=== PATIENT | male | born 1975 | race Caucasian/White ===

== ENCOUNTER → 2018-09-20 14:56 | Outpatient (CLI) | payer OTHER, MEDICAID, SELFPAY ==
[2018-09-20 18:17] LABS: Glucose Tol Interpretation INTERPRETATION
[2018-09-20 18:42] LABS: Glucose Fasting 74 mg/dL (70-100)
[2018-09-20 18:42] LABS: Glucose 1 Hour 142 mg/dL (70-170)
[2018-09-20 18:42] LABS: Glucose 2 Hour 91 mg/dL (70-140)
[2018-09-20 18:49] LABS: Glucose 3 Hour 72 mg/dL (70-115)
== END ==
PROVIDERS: PCP Physician Assistant; Visit Provider Physician Assistant
DX: E16.2 Hypoglycemia, unspecified (principal); R55 Syncope and collapse; Z83.3 Family history of diabetes mellitus
CPT/HCPCS: 36415; 82951; 82952

== ENCOUNTER → 2019-01-04 17:00 | Outpatient (CLI) | payer OTHER, MEDICAID, SELFPAY ==
[2019-01-04 17:38] LABS: Add Manual Diff / Slide Review NO; Basophils Absolute Auto 0 /uL (0-100); Basophils Percent Auto 0.8 % (0-2); Eosinophils Absolute Auto 200 /uL (0-450); Eosinophils Percent Auto 2.9 % (2-4); Hematocrit 48.7 % (41-53); Hemoglobin 16.2 g/dL (13.5-17.5); Lymphocytes Absolute Auto 1800 /uL (1100-4500); Lymphocytes Percent Auto 30.6 % (25-40); Mean Corpuscular HGB Conc 33.4 % (30-36); Mean Corpuscular Hemoglobin 29.8 PG (26-34); Mean Corpuscular Volume 89.3 fL (80-100); Monocytes Absolute Auto 600 /uL (0-900); Monocytes Percent Auto 9.5 % (3-14); Neutrophils Absolute Auto 3400 /uL (1500-7000); Neutrophils Percent Auto 56.2 % (50-75); Platelet Count 256 X10^3/uL (150-400); Red Blood Cell Count 5.46 X10^6/uL (4.5-5.9); Red Cell Distribution Width 13.1 % (11.6-14.8)
[2019-01-04 18:19] LABS: Free T4, Direct Thyroxine 1.03 ng/dL (0.78-2.19); Vitamin D 25 Hydroxy (D3) 24.3 ng/mL (30.0-100.0)
[2019-01-04 18:33] LABS: Thyroid Stimulating Hormone 3.18 uIU/mL (0.47-4.68)
[2019-01-06 15:12] LABS: Triiodothyronine T3 Total 104 ng/dL (76-181)
== END ==
PROVIDERS: PCP Physician Assistant; Visit Provider Internal Medicine
DX: R53.83 Other fatigue (principal); R63.5 Abnormal weight gain
CPT/HCPCS: 36415; 82306; 84439; 84443; 84480; 85025

== ENCOUNTER 2019-01-26 14:46 | Emergency (ER) | payer OTHER, MEDICAID, SELFPAY ==
[2019-01-26 14:57] VITALS: BP 185/105; PULSE 100; RESP 18; TEMP 37.2; O2SAT 99; BMI 34.7
--- NOTE | 2019-01-26 15:30 | DI.CT.S_ITS ---
PROCEDURE: CT HEAD/BRAIN WO CON INDICATIONS: htn, headache w/ c/o confusion at times. in ED wr TECHNIQUE: Noncontrast 4.5 mm thick angled axial sections acquired from the foramen magnum to the vertex, with coronal and sagittal reformats. For radiation dose reduction, the following was used: automated exposure control, adjustment of mA and/or kV according to patient size. COMPARISON: [facility], CT, HEAD WITHOUT CONTRAST, 10/26/2016, 1:03. FINDINGS: Image quality: Excellent. CSF spaces: Basal cisterns are patent. No extra-axial fluid collections. Ventricles are normal in size and shape. Brain: No midline shift. No intracranial masses or hemorrhage. Hammonds-white matter interface is normal. Skull and face: Calvarium and visualized facial bones are intact, without suspicious lesions. Sinuses: Visualized sinuses and mastoids are clear. IMPRESSION: No acute intracranial disease process. Dictated by: Lakshmi Rhodes MD, PhD on 01/26/2019 at 15:55 Approved by: Lakshmi Rhodes MD, PhD on 01/26/2019 at 15:57
--- NOTE | 2019-01-26 16:20 | DI.RAD.S_ITS ---
PROCEDURE: XR CHEST 1V INDICATIONS: chest pain TECHNIQUE: One view of the chest was acquired. COMPARISON: None. FINDINGS: Surgical changes and devices: None. Lungs and pleura: Lungs are clear. No pleural effusions or pneumothorax. Mediastinum: Mediastinal contours appear normal. Heart size is normal. Bones and chest wall: No suspicious bony lesions. Overlying soft tissues appear unremarkable. IMPRESSION: 1. No acute cardiopulmonary disease. Dictated by: Uday Bean M.D. on 01/26/2019 at 16:46 Approved by: Uday Bean M.D. on 01/26/2019 at 16:48
--- NOTE | 2019-01-26 16:47 | PC.NURSE ---
Patient reports headache, started with some stiffness in neck and shoulder after helping girlfriend move. Ongoing headache and some nausea. Taken off blood pressure medication secondary to weight loss.
[2019-01-26 16:49] LABS: Add Manual Diff / Slide Review NO; Basophils Absolute Auto 0 /uL (0-100); Basophils Percent Auto 0.5 % (0-2); Eosinophils Absolute Auto 300 /uL (0-450); Eosinophils Percent Auto 2.8 % (2-4); Hematocrit 46.6 % (41-53); Lymphocytes Absolute Auto 1900 /uL (1100-4500); Mean Corpuscular HGB Conc 34.3 % (30-36); Mean Corpuscular Hemoglobin 30.2 PG (26-34); Mean Corpuscular Volume 87.9 fL (80-100); Monocytes Absolute Auto 600 /uL (0-900); Monocytes Percent Auto 7.1 % (3-14); Neutrophils Absolute Auto 6200 /uL (1500-7000); Neutrophils Percent Auto 68.6 % (50-75); Platelet Count 239 X10^3/uL (150-400); Red Cell Distribution Width 12.9 % (11.6-14.8); White Blood Cell Count 9.1 X10^3/uL (4.5-11.0)
[2019-01-26 16:56] LABS: INR 0.9 (0.9-1.3); Prothrombin Time 10.8 SECONDS (10.1-12.7)
[2019-01-26 16:59] LABS: PTT Partial Thromboplastin Tim 28 SECONDS (26.4-36.2)
[2019-01-26] MEDS: diphenhydrAMINE 50 MG/ML VIAL 25 MG IV (17:01)
--- NOTE | 2019-01-26 17:01 | ED_ITS ---
HPI - Headache <BRIDGETTE Mullen - Last Filed: 01/26/19 19:54> General Chief Complaint: Headache Stated Complaint: disoriented,dizziness,migraine x5 days Time Seen by Provider: 01/26/19 16:26 Source: patient Mode of arrival: ambulatory Limitations: no limitations History of Present Illness HPI Narrative: The patient is a 43-year-old male with history of hypertension, obesity and sleep apnea who presents with a chief complaint of a headache. He states his headache is been going on for 5 days. Started post coital. He has been taking Tylenol and Motrin for it, but nothing else. He complains of associated nausea, light sensitivity. He does state that his blood pressure has been 180/120 at home. He states that all of his blood pressure medications have been recently discontinued due to his 60 lb weight loss. He denies any chest pain or chest pressure. Denies any cough or congestion. He complains of being disoriented and dizziness. He also complains of some stiffness in his right shoulder after helping his girlfriend move. Related Data Home Medications Medication Instructions Recorded Confirmed multivitamin tablet 1 tab PO DAILY 01/10/18 01/26/19 ResMed AirSense 10 Auto CPAP #1 ea 10/11/18 01/26/19 lovastatin 40 mg tablet 40 mg PO BEDTIME #0 tab 10/23/18 01/26/19 Fish Oil 1 cap PO DAILY 01/26/19 01/26/19 Vitamin D3 1 cap PO DAILY 01/26/19 01/26/19 magnesium 1 tab PO DAILY 01/26/19 01/26/19 Previous Rx's Medication Instructions Recorded lisinopril 5 mg PO DAILY #14 tab 01/26/19 Allergies Allergy/AdvReac Type Severity Reaction Status Date / Time Iodinated Contrast- Oral and AdvReac Severe Swollen Verified 10/23/18 11:40 IV Dye Tounge, Hives iodine [IODINE] AdvReac Severe SWOLLEN Verified 10/23/18 11:40 THROAT, BURNING EYES AND HIVES ALL OVER BODY SSRIs AdvReac Nausea, Uncoded 10/23/18 11:40 Fatigue, Sweating Review of Systems <VARGAS Mullen - Last Filed: 01/26/19 19:54> Review of Systems GENERAL: Denies chills, fatigue, malaise, fever, sweats. HEENT: Denies sinus pain, ear pain, sore throat, difficulty swallowing, dizziness. RESPIRATORY: See HPI CARDIOVASCULAR: Denies chest pain, palpitations, orthopnea, edema, GASTROINTESTINAL: Denies nausea, vomiting, abdominal pain, diarrhea, constipation, melena. : Denies dysuria, frequency, incontinence, hematuria, urinary retention. MUSCULOSKELETAL: denies weakness, joint pain, or bony pain SKIN: Denies rash, skin lesions, or other NEUROLOGIC: See HPI PSYCHIATRIC: No concerning psychosocial issues. 12 point review of systems is negative except for those stated above PFSH <BRIDGETTE Mullen - Last Filed: 01/26/19 19:54> Medical History Obstructive sleep apnea of adult (Chronic) Insomnia, unspecified (Chronic) Obesity (Chronic) Essential (primary) hypertension (Chronic ~2012) Anxiety (Inactive ~2006) Chronic back pain (Inactive ~2009) Depression (Inactive ~2006) Eczema (Inactive ~2009) Foot pain (Inactive ~2016) Gout (Inactive ~2015) Hemorrhoids (Inactive ~2013) Scoliosis (Inactive) Sleep apnea (Inactive ~2011) Surgical History Hx of removal of cyst (Inactive) Family History Father Heart disease Diabetes mellitus Hypertension Hyperlipidemia Mother Fibromyalgia Brother Diabetes mellitus Grandmother Heart attack Social History marital status: details: [place] household members: friend(s) lives independently: Yes caregiver/support person: No housing: house pets and animals: Yes education level: college occupational status: employed seatbelt use: always water heater temp set < 120 deg: Yes working smoke detector in home: Yes fire extinguisher in home: Yes carbon monox detector in home: Yes firearms in home: No Smoking Status: Never smoker second hand exposure: No alcohol intake: current (a glass of rum and coke or beer once or twice a year) substance use type: does not use during the past year weight has: increased > 10 lbs well-balanced diet: daily or most days daily servings fruits/ve-1 caffeine: Yes eating out: rarely or never Type(s) of exercise: walking, yoga and additional (strethching, light weights) frequency: 3-4 times per week duration: 45-60 minutes/day Family History Father Heart disease Diabetes mellitus Hypertension Hyperlipidemia Mother Fibromyalgia Brother Diabetes mellitus Grandmother Heart attack Social History marital status: details: has [place] GF [place] household members: friend(s) lives independently: Yes caregiver/support person: No housing: house pets and animals: Yes education level: college occupational status: employed seatbelt use: always water heater temp set < 120 deg: Yes working smoke detector in home: Yes fire extinguisher in home: Yes carbon monox detector in home: Yes firearms in home: No Smoking Status: Never smoker second hand exposure: No alcohol intake: current (a glass of rum and coke or beer once or twice a year) substance use type: does not use during the past year weight has: increased > 10 lbs well-balanced diet: daily or most days daily servings fruits/ve-1 caffeine: Yes eating out: rarely or never Type(s) of exercise: walking, yoga and additional (strethching, light weights) frequency: 3-4 times per week duration: 45-60 minutes/day Exam <BRIDGETTE Mullen - Last Filed: 01/26/19 19:54> Narrative Exam Narrative: GENERAL: This is a well-nourished, well-developed patient, no acute distress HEAD: Atraumatic. Normocephalic. No temporal or scalp tenderness. EYES: Pupils equal round and reactive. Extraocular motions intact. No scleral icterus. No injection or drainage. No nystagmus noted. ENT: Nose without bleeding, purulent drainage or septal hematoma. Throat without erythema, tonsillar hypertrophy or exudate. Uvula midline. Airway patent. NECK: Trachea midline. No JVD or lymphadenopathy. Supple, nontender, no meningeal signs. CARDIOVASCULAR: Regular rate and rhythm without murmurs, gallops, or rubs. RESPIRATORY: Clear to auscultation. Breath sounds equal bilaterally. No wheezes, rales, or rhonchi. No cough. No increased respiratory effort. No accessory muscle use. GASTROINTESTINAL: Abdomen soft, non-tender, nondistended. No hepato- splenomegaly, or palpable masses. No guarding. EXTREMITIES: No clubbing, cyanosis, or edema. No joint tenderness, effusion, or edema noted. BACK: Nontender without deformity or crepitance. No flank tenderness. NEURO: AOx3. Strength is equal upper and lower extremities bilaterally. No obvious cranial nerve deficit. Patient is ambulating with steady gait. Follows commands. Negative [id number] test. SKIN: No rash or erythema. Initial Vital Signs Initial Vital Signs: Vital Signs Temperature 98.9 F 01/26/19 14:57 Pulse Rate 100 H 01/26/19 14:57 Respiratory Rate 18 01/26/19 14:57 Blood Pressure 185/105 H 01/26/19 14:57 Pulse Oximetry 99 01/26/19 14:57 <Yolanda Lisa DO - Last Filed: 01/29/19 07:19> Initial Vital Signs Initial Vital Signs: Vital Signs Temperature 98.9 F 01/26/19 14:57 Pulse Rate 100 H 01/26/19 14:57 Respiratory Rate 18 01/26/19 14:57 Blood Pressure 185/105 H 01/26/19 14:57 Pulse Oximetry 99 01/26/19 14:57 Course <NELLIE Mullen-BC - Last Filed: 01/26/19 19:54> Orders Ordered: Discontinued Medications Cyclobenzaprine HCl (Flexeril) 10 mg PO NOW ONE Stop: 01/26/19 17:46 Last Admin: 01/26/19 18:18 Dose: 10 mg Diphenhydramine HCl (Benadryl) 25 mg IV NOW ONE Stop: 01/26/19 16:36 Last Admin: 01/26/19 17:01 Dose: 25 mg Ketorolac Tromethamine (Toradol) 30 mg IV NOW ONE Stop: 01/26/19 16:36 Last Admin: 01/26/19 17:02 Dose: 30 mg Lisinopril (Zestril) 5 mg PO NOW ONE Stop: 01/26/19 17:46 Last Admin: 01/26/19 18:18 Dose: 5 mg Metoclopramide HCl (Reglan) 10 mg IV NOW ONE Stop: 01/26/19 16:36 Last Admin: 01/26/19 17:02 Dose: 10 mg Vital Signs - 8 hr 01/26/19 14:57 01/26/19 17:45 01/26/19 18:00 Temperature 98.9 F Pulse Rate 100 H 71 85 Respiratory Rate 18 19 Blood Pressure 185/105 H Blood Pressure [Right Arm] 181/98 H 141/80 H Pulse Oximetry 99 98 01/26/19 18:18 01/26/19 18:34 01/26/19 18:58 Temperature Pulse Rate 63 Respiratory Rate Blood Pressure 178/108 H Blood Pressure [Right Arm] 175/111 H 171/99 H Pulse Oximetry <Yolanda Lisa, - Last Filed: 01/29/19 07:19> Orders Ordered: Discontinued Medications Cyclobenzaprine HCl (Flexeril) 10 mg PO NOW ONE Stop: 01/26/19 17:46 Last Admin: 01/26/19 18:18 Dose: 10 mg Diphenhydramine HCl (Benadryl) 25 mg IV NOW ONE Stop: 01/26/19 16:36 Last Admin: 01/26/19 17:01 Dose: 25 mg Ketorolac Tromethamine (Toradol) 30 mg IV NOW ONE Stop: 01/26/19 16:36 Last Admin: 01/26/19 17:02 Dose: 30 mg Lisinopril (Zestril) 5 mg PO NOW ONE Stop: 01/26/19 17:46 Last Admin: 01/26/19 18:18 Dose: 5 mg Metoclopramide HCl (Reglan) 10 mg IV NOW ONE Stop: 01/26/19 16:36 Last Admin: 01/26/19 17:02 Dose: 10 mg Vital Signs - 8 hr 01/26/19 14:57 01/26/19 17:45 01/26/19 18:00 Temperature 98.9 F Pulse Rate 100 H 71 85 Respiratory Rate 18 19 Blood Pressure 185/105 H Blood Pressure [Right Arm] 181/98 H 141/80 H Pulse Oximetry 99 98 01/26/19 18:18 01/26/19 18:34 01/26/19 18:58 Temperature Pulse Rate 63 Respiratory Rate Blood Pressure 178/108 H Blood Pressure [Right Arm] 175/111 H 171/99 H Pulse Oximetry MDM - Headache <Yolandajoaquim AmosNELLIE perez- - Last Filed: 01/26/19 19:54> Lab Data Result diagrams: 01/26/19 16:40 01/26/19 16:40 Lab Results 01/26/19 01/26/19 01/26/19 Range/Units 16:40 16:40 16:40 WBC 9.1 (4.5-11.0) X10^3/uL RBC 5.30 (4.5-5.9) X10^6/uL Hgb 16.0 (13.5-17.5) g/dL Hct 46.6 (41-53) % MCV 87.9 (80-100) fL MCH 30.2 (26-34) PG MCHC 34.3 (30-36) % RDW 12.9 (11.6-14.8) % Plt Count 239 (150-400) X10^3/uL Neut % (Auto) 68.6 (50-75) % Lymph % (Auto) 21.0 L (25-40) % [place] % (Auto) 7.1 (3-14) % Eos % (Auto) 2.8 (2-4) % Baso % (Auto) 0.5 (0-2) % Neut # (Auto) 6200 (7127-5860) /uL Lymph # (Auto) 1900 (9491-6028) /uL [place] # (Auto) 600 (0-900) /uL Eos # (Auto) 300 (0-450) /uL Baso # (Auto) 0 (0-100) /uL PT 10.8 (10.1-12.7) SECONDS INR 0.9 (0.9-1.3) APTT 28 (26.4-36.2) SECONDS Sodium 139 (137-145) mmol/L Potassium 3.8 (3.4-5.1) mmol/L Chloride 102 (98-107) mmol/L Carbon Dioxide 30 (22-32) mmol/L BUN 23 H (9-20) mg/dL Creatinine 1.00 (0.66-1.25) mg/dL Estimated GFR > 60.0 (>60) mL/min BUN/Creatinine Ratio 23.0 H (6-22) Glucose 95 (70-100) mg/dL Calcium 9.4 (8.4-10.2) mg/dL Total Bilirubin 0.6 (0.2-1.3) mg/dL AST 34 (17-59) IU/L ALT 25 (21-72) IU/L Alkaline Phosphatase 68 (38-126) U/L Total Creatine Kinase 453 H (55-170) U/L CK-MB (CK-2) 0.83 (<2.37) ng/mL CK-MB (CK-2) Rel Index 0.2 L (1.5-5.0) % Troponin I < 0.012 (0.01-0.034) ng/mL Total Protein 7.7 (6.3-8.2) g/dL Albumin 4.4 (3.5-5.0) g/dL Globulin 3.3 (1.7-4.1) g/dL Albumin/Globulin Ratio 1.3 (1.0-2.8) Lipase 81 (23-300) U/L Imaging Data CT scan - head: Radiologist's impression: WillianTimmy Becca Knutson M 1975 [place] [address] CT Scan Report Signed Patient: Timmy Dorsey JMR#: [id number] : 1975Acct:[id number] Age/Sex: 43 / MDate of Service: 01/26/19 Loc: ED Accession Number: [id number] Procedure: CT head/brain wo con Ordering Provider: Yolanda Lisa D.O. PROCEDURE: CT HEAD/BRAIN WO CON INDICATIONS: htn, headache w/ c/o confusion at times. in ED wr TECHNIQUE: Noncontrast 4.5 mm thick angled axial sections acquired from the foramen magnum to the vertex, with coronal and sagittal reformats. For radiation dose reduction, the following was used: automated exposure control, adjustment of mA and/or kV according to patient size. COMPARISON: [facility], CT, HEAD WITHOUT CONTRAST, 10/26/2016, 1:03. FINDINGS: Image quality: Excellent. CSF spaces: Basal cisterns are patent. No extra-axial fluid collections. Ve ntricles are normal in size and shape. Brain: No midline shift. No intracranial masses or hemorrhage. Hammonds-white matter interface is normal. Skull and face: Calvarium and visualized facial bones are intact, without suspicious lesions. Sinuses: Visualized sinuses and mastoids are clear. IMPRESSION: No acute intracranial disease process. Dictated by: Lakshmi Rhodes MD, PhD on 01/26/2019 at 15:55 Approved by: Lakshmi Rhodes MD, PhD on 01/26/2019 at 15:57 Chest x-ray: Radiologist's impression: [facility] DATE TYPE STATUS AUTHOR Kassandra 01/26/19 16:20 Uday Bean 01/26/19 15:30 CarmeloLakshmi Timmy Dorsey 43, M0 1975 DEP ER, ED.LOC - Main ED 175.26cm 106.594kg BMI: 34.7kg/m? Headache Search Chart NF - Not included in interaction checking Swollen Tounge, Hives SWOLLEN THROAT, BURNING EYES AND HIVES ALL OVER BODY Nausea, Fatigue, Sweating ONSET Today 18:58 Timmy Dorsey 43 M 1975 [place] [address] XRay Report Signed Patient: Timmy Dorsey JMR#: [id number] : 1975Acct:[id number] Age/Sex: 43 / MDate of Service: 01/26/19 Loc: ED Accession Number: [id number] Procedure: XR chest 1V Ordering Provider: Yolanda Singh GROUP CONTRACT ANALYST- PROCEDURE: XR CHEST 1V INDICATIONS: chest pain TECHNIQUE: One view of the chest was acquired. COMPARISON: None. FINDINGS: Surgical changes and devices: None. Lungs and pleura: Lungs are clear. No pleural effusions or pneumothorax. Mediastinum: Mediastinal contours appear normal. Heart size is normal. Bones and chest wall: No suspicious bony lesions. Overlying soft tissues appear unremarkable. IMPRESSION: 1. No acute cardiopulmonary disease. Dictated by: Uday Bean M.D. on 01/26/2019 at 16:46 Approved by: Uday Bean M.D. on 01/26/2019 at 16:48 ECG Data Attestation: I personally reviewed and interpreted this ECG as follows: Interpretation: Sinus rhythm. Ventricular rate 74. No ectopy noted. GA interval 152. Viewed by Dr Lisa 17:30 [facility] Narrative Medical decision making narrative: The patient is a 43-year-old male who presents hypertensive and with a migraine. Thus given his complaints of neurological symptoms, a head CT was obtained. This showed no acute etiology. He has a negative troponin. We treated his migraine with a cocktail, which she felt much improved after. His blood pressure is decreased from over 200 systolic to 170. I did give him lisinopril. I did discuss that a lumbar puncture is needed to fully rule out a subarachnoid. However he declines this at this time, given that he is improved. He actually requested to be discharged immediately after oral medications. Given his persistently high blood pressure, did give a prescription for 2 weeks of lisinopril. Discussed at length return precautions of chest pain, shortness of breath, concern of heart attack or stroke or other acute concerns. Encouraged patient to follow up with primary care provider in the next few days. Patient has no questions or concerns upon discharge. <Yolanda Lisa, DO - Last Filed: 01/29/19 07:19> Lab Data Lab Results 01/26/19 01/26/19 01/26/19 Range/Units 16:40 16:40 16:40 WBC 9.1 (4.5-11.0) X10^3/uL RBC 5.30 (4.5-5.9) X10^6/uL Hgb 16.0 (13.5-17.5) g/dL Hct 46.6 (41-53) % MCV 87.9 (80-100) fL MCH 30.2 (26-34) PG MCHC 34.3 (30-36) % RDW 12.9 (11.6-14.8) % Plt Count 239 (150-400) X10^3/uL Neut % (Auto) 68.6 (50-75) % Lymph % (Auto) 21.0 L (25-40) % [place] % (Auto) 7.1 (3-14) % Eos % (Auto) 2.8 (2-4) % Baso % (Auto) 0.5 (0-2) % Neut # (Auto) 6200 (7560-6265) /uL Lymph # (Auto) 1900 (5047-5773) /uL [place] # (Auto) 600 (0-900) /uL Eos # (Auto) 300 (0-450) /uL Baso # (Auto) 0 (0-100) /uL PT 10.8 (10.1-12.7) SECONDS INR 0.9 (0.9-1.3) APTT 28 (26.4-36.2) SECONDS Sodium 139 (137-145) mmol/L Potassium 3.8 (3.4-5.1) mmol/L Chloride 102 (98-107) mmol/L Carbon Dioxide 30 (22-32) mmol/L BUN 23 H (9-20) mg/dL Creatinine 1.00 (0.66-1.25) mg/dL Estimated GFR > 60.0 (>60) mL/min BUN/Creatinine Ratio 23.0 H (6-22) Glucose 95 (70-100) mg/dL Calcium 9.4 (8.4-10.2) mg/dL Total Bilirubin 0.6 (0.2-1.3) mg/dL AST 34 (17-59) IU/L ALT 25 (21-72) IU/L Alkaline Phosphatase 68 (38-126) U/L Total Creatine Kinase 453 H (55-170) U/L CK-MB (CK-2) 0.83 (<2.37) ng/mL CK-MB (CK-2) Rel Index 0.2 L (1.5-5.0) % Troponin I < 0.012 (0.01-0.034) ng/mL Total Protein 7.7 (6.3-8.2) g/dL Albumin 4.4 (3.5-5.0) g/dL Globulin 3.3 (1.7-4.1) g/dL Albumin/Globulin Ratio 1.3 (1.0-2.8) Lipase 81 (23-300) U/L Discharge Plan Departure Patient Disposition: Home Clinical Impression: Migraine Qualifiers: Migraine type: unspecified Status migrainosus presence: without status migrainosus Intractability: not intractable Qualified Code(s): G43.909 - Migraine, unspecified, not intractable, without status migrainosus Hypertension Qualifiers: Hypertension type: unspecified Qualified Code(s): I10 - Essential (primary) hypertension Discharge Date/Time: 01/26/19 19:48 Interventions: ED Discharge Assessment Last Done: 01/26/19 19:47 Instructions: The DASH Diet, High Blood Pressure (Hypertension) (Alternative Therapy), Essential Hypertension, DI for Migraine, DI for Headache Activity Restrictions/Additional Instructions: Today we treated your migraine and I gave you some blood pressure medication. Your CT scan came back with no acute abnormalities. Please come back to the emergency department for any acute concerns such as chest pain, shortness of breath concern of heart attack or stroke. Please follow up with your primary care provider as soon as possible. Prescriptions: New lisinopril 5 mg tablet 5 mg PO DAILY Qty: 14 RF: 0 No Action multivitamin tablet 1 tab PO DAILY RF: 0 lovastatin 40 mg tablet 40 mg PO BEDTIME Qty: 0 RF: 0 Fish Oil 1 cap PO DAILY RF: 0 Vitamin D3 1 cap PO DAILY RF: 0 magnesium 1 tab PO DAILY RF: 0 ResMed AirSense 10 Auto CPAP Qty: 1 RF: 0 Referrals: Inez Alexandre PA-C [Primary Care Provider] - <Yolanda Lisa DO - Last Filed: 01/29/19 07:19> Cosign ED Attending Cosignature Attestation: I was immediately available in the department for consultation. This documentation has been reviewed and I agree with assessment and plan. Supervised by Yolanda Lisa DO
[2019-01-26 17:02] LABS: Alanine Aminotransferase 25 IU/L (21-72); Albumin 4.4 g/dL (3.5-5.0); Albumin Globulin Ratio 1.3 (1.0-2.8); Alkaline Phosphatase 68 U/L (38-126); Aspartate Aminotransferase 34 IU/L (17-59); Bilirubin Total 0.6 mg/dL (0.2-1.3); Blood Urea Nitrogen 23 mg/dL (9-20); Calcium 9.4 mg/dL (8.4-10.2); Carbon Dioxide 30 mmol/L (22-32); Chloride 102 mmol/L (98-107); Creatine Kinase 453 U/L (55-170); Estimated Glomerular Filt Rate > 60.0 mL/min (>60); Globulin 3.3 g/dL (1.7-4.1); Glucose 95 mg/dL (70-100); HEMOLYSIS 47 (0-50); Lipase 81 U/L (23-300); Potassium 3.8 mmol/L (3.4-5.1); Sodium 139 mmol/L (137-145); Total Protein 7.7 g/dL (6.3-8.2)
[2019-01-26] MEDS: METOCLOPRAMIDE 10 MG/2 ML INJ IV (17:02)
[2019-01-26] MEDS: KETOROLAC 60 MG/2 ML VIAL 30 MG IV (17:02)
[2019-01-26 17:14] LABS: Troponin I < 0.012 ng/mL (0.01-0.034)
[2019-01-26 17:17] LABS: CKMB % Relative Index 0.2 % (1.5-5.0); Creatine Kinase MB 0.83 ng/mL (<2.37)
[2019-01-26 17:45] VITALS: BP 181/98; PULSE 71; RESP 19; O2SAT 98
[2019-01-26 18:00] VITALS: BP 141/80; PULSE 85
[2019-01-26 18:18] VITALS: BP 178/108; PULSE 63
[2019-01-26] MEDS: LISINOPRIL 5 MG TABLET PO (18:18)
[2019-01-26] MEDS: CYCLOBENZAPRINE 10 MG TABLET PO (18:18)
[2019-01-26 18:34] VITALS: BP 175/111
[2019-01-26 18:58] VITALS: BP 171/99
== END 2019-01-26 19:48 | disposition home or self-care (01) ==
PROVIDERS: Emergency Provider Nurse Practitioner Family; PCP Physician Assistant
DX: G43.909 Migraine, unspecified, not intractable, without status migrainosus (principal); I10 Essential (primary) hypertension; R42 Dizziness and giddiness
CPT/HCPCS: 36591; 70450; 71045; 80053; 82550; 82553; 83690; 84484; 85025; 85610; 85730; 93005; 93010; 96374; 96375; 99283; 99285; J1200; J1885; J2765

== ENCOUNTER → 2019-05-01 12:26 | Outpatient (CLI) | payer OTHER, MEDICAID, SELFPAY ==
[2019-05-01 13:53] LABS: Cholesterol 255 mg/dL (140-199); HDL Cholesterol 43 mg/dL (40-60); LDL Cholesterol Calculated 173 mg/dL (<100); Triglycerides 196 mg/dL (35-150)
[2019-05-01 15:00] LABS: Creatinine Urine Random 223.7 mg/dL
[2019-05-01 15:05] LABS: Microalbumin Urine Random 0.9 mg/dL (0-1.6)
== END ==
PROVIDERS: PCP Physician Assistant; Visit Provider Physician Assistant
DX: I10 Essential (primary) hypertension (principal); E78.5 Hyperlipidemia, unspecified
CPT/HCPCS: 36415; 80061; 82043; 82570

== ENCOUNTER → 2019-06-13 11:39 | Outpatient (CLI) | payer OTHER, MEDICAID, SELFPAY ==
[2019-06-13 13:39] LABS: Thyroid Stimulating Hormone 1.71 uIU/mL (0.47-4.68)
[2019-06-13 13:40] LABS: Cortisol Random 11.7 ug/dL
[2019-06-17 16:55] LABS: Catecholamines, Total 490 pg/mL
== END ==
PROVIDERS: PCP Physician Assistant; Visit Provider Internal Medicine Cardiovascular Disease
DX: I10 Essential (primary) hypertension (principal)
CPT/HCPCS: 36415; 82384; 82533; 84443

== ENCOUNTER 2019-07-24 13:35 | Emergency (ER) | payer OTHER, MEDICAID, SELFPAY ==
[2019-07-24 13:48] VITALS: BP 197/117; PULSE 85; RESP 20; TEMP 37.1; O2SAT 96
[2019-07-24 14:00] VITALS: BP 170/101; RESP 21; O2SAT 91
--- NOTE | 2019-07-24 14:00 | ED_ITS ---
HPI - General Adult General Chief complaint: Hypertension Stated complaint: Htn 130/205 - sent by doc Time Seen by Provider: 07/24/19 14:00 Source: patient Mode of arrival: Ambulatory Limitations: no limitations History of Present Illness HPI narrative: Patient is a 44-year-old male with history of hypertension pres enting from the dentist with elevated blood pressure. He states that he has white coat syndrome as well as hypertension. He sees cardiology to help manage his blood pressure. Took ibuprofen prior to arrival for his toothache. He denies any chest pain shortness of breath dizziness lightheadedness palpitations abdominal pain nausea or vomiting. His blood pressure has decreased to just within the 1st few minutes of being in the emergency department. Related Data Home Medications Medication Instructions Recorded Confirmed multivitamin 1 tab PO DAILY 01/10/18 04/18/19 ResMed AirSense 10 Auto CPAP #1 ea 10/11/18 04/18/19 lovastatin 40 mg tablet 40 mg PO BEDTIME #0 tab 10/23/18 07/24/19 magnesium 1 tab PO DAILY 01/26/19 04/18/19 Fish Oil/Vitamin D3 1 cap PO .QDAY 02/01/19 04/18/19 acetaminophen 500 mg tablet 1,000 mg PO Q6H PRN 02/01/19 04/18/19 diphenhydramine HCl 25 mg tablet 25 mg PO BEDTIME PRN 02/01/19 04/18/19 ibuprofen 200 mg tablet 800 mg PO Q6-8H PRN tab 02/01/19 04/18/19 Previous Rx's Medication Instructions Recorded valsartan 80 1 tab PO DAILY #30 tab 04/18/19 mg-hydrochlorothiazide 12.5 mg tablet Allergies Allergy/AdvReac Type Severity Reaction Status Date / Time Iodinated Contrast Media AdvReac Severe Swollen Verified 04/18/19 11:48 [Iodinated Contrast- Oral Tounge, and IV Dye] Hives iodine [IODINE] AdvReac Severe SWOLLEN Verified 04/18/19 11:48 THROAT, BURNING EYES AND HIVES ALL OVER BODY amlodipine AdvReac Intermediate Swelling Verified 04/18/19 12:16 in legs; weight gain lisinopril AdvReac Mild Itchy Verified 04/18/19 12:16 throat, itchy eyes SSRIs AdvReac Nausea, Uncoded 04/18/19 11:48 Fatigue, Sweating Review of Systems Review of Systems Narrative: GENERAL: Denies chills, fatigue, malaise, fever, sweats, travel HEENT: + dental pain Denies sinus pain, ear pain, sore throat, difficulty swallowing, neck pain RESPIRATORY: Denies dyspnea, cough, wheezing, hemoptysis, sputum. CARDIOVASCULAR: Denies chest pain, palpitations, orthopnea, edema GASTROINTESTINAL: Denies nausea, vomiting, abdominal pain, diarrhea, constip ation, melena. : Denies dysuria, frequency, incontinence, hematuria, urinary retention, flank pain. MUSCULOSKELETAL: Denies weakness, joint pain, or bony pain SKIN: No rash, no erythema, no pruritus NEUROLOGIC: Denies weakness, dizziness, headache, numbness, change in speech, confusion PSYCHIATRIC: No concerning psychosocial issues. 12 point review of systems is negative except for those stated above and HPI Patient History Medical History Anxiety (Inactive ~2006) Chronic back pain (Inactive ~2009) Depression (Inactive ~2006) Eczema (Inactive ~2009) Essential (primary) hypertension (Chronic ~2012) Foot pain (Inactive ~2016) Gout (Inactive ~2015) Hemorrhoids (Inactive ~2013) Insomnia, unspecified (Chronic) Obesity (Chronic) Obstructive sleep apnea of adult (Chronic) Scoliosis (Inactive) Sleep apnea (Inactive ~2011) Surgical History Hx of removal of cyst (Inactive) Family History Father Heart disease Diabetes mellitus Hypertension Hyperlipidemia Mother Fibromyalgia Brother Diabetes mellitus Grandmother Heart attack Social History marital status: details: has [place] GF [place] household members: friend(s) lives independently: Yes caregiver/support person: No housing: house pets and animals: Yes education level: college occupational status: employed seatbelt use: always water heater temp set < 120 deg: Yes working smoke detector in home: Yes fire extinguisher in home: Yes carbon monox detector in home: Yes firearms in home: No Smoking Status: Never smoker second hand exposure: No alcohol intake: current (a glass of rum and coke or beer once or twice a year) substance use type: does not use during the past year weight has: increased > 10 lbs well-balanced diet: daily or most days daily servings fruits/ve-1 caffeine: Yes eating out: rarely or never Type(s) of exercise: walking, yoga and additional (strethching, light weights) frequency: 3-4 times per week duration: 45-60 minutes/day alcohol intake frequency: a few times a month Substance Use Type: marijuana Exam Initial Vital Signs Initial Vital Signs: Vital Signs Temperature 98.7 F 07/24/19 13:48 Pulse Rate 85 07/24/19 13:48 Respiratory Rate 20 07/24/19 13:48 Blood Pressure 197/117 H 07/24/19 13:48 Pulse Oximetry 96 07/24/19 13:48 GENERAL: Well-appearing, well-nourished and in no acute distress. HEENT: Head atraumatic,EOMI, pupils reactive, face symmetric, moist mucous membranes CARDIOVASCULAR: Regular rate and rhythm without murmurs, rubs or gallops. RESPIRATORY: Breath sounds equal bilaterally, no wheezes rales or rhonchi. ABDOMEN: Soft, nontender. Normoactive bowel sounds all 4 quadrants. No guardi ng or rebound. EXTREMITIES: Normal range of motion, no clubbing or edema. Neurovascularly intact NEUROLOGICAL: Alert and oriented x4.Normal gait and speech. Cranial nerves II through XII grossly intact. SKIN: Warm, dry, no laceration, no petechiae, no rashes or lesions. Course Orders Ordered: ED Orders 07/24/19 14:10 Complete Blood Count AUTO DIFF Stat Comprehensive Metabolic Panel Stat Lipase Stat Troponin & CK Cardiac Panel Stat Vital Signs Vital signs: Vital Signs - 8 hr 07/24/19 13:48 07/24/19 14:00 07/24/19 14:30 Temperature 98.7 F Pulse Rate 85 77 Respiratory Rate 20 21 17 Blood Pressure 197/117 H Blood Pressure [Right Arm] 170/101 H 155/104 H Pulse Oximetry 96 91 94 07/24/19 14:57 Temperature Pulse Rate 75 Respiratory Rate Blood Pressure Blood Pressure [Right Arm] 155/104 H Pulse Oximetry 95 Medical Decision Making Lab Data Lab results reviewed: Yes I reviewed the patient's lab results. Result diagrams: 07/24/19 14:10 07/24/19 14:10 Labs: Lab Results 07/24/19 07/24/19 Range/Units 14:10 14:10 WBC 5.8 (4.5-11.0) X10^3/uL RBC 5.02 (4.5-5.9) X10^6/uL Hgb 15.0 (13.5-17.5) g/dL Hct 44.0 (41-53) % MCV 87.7 (80-100) fL MCH 30.0 (26-34) PG MCHC 34.2 (30-36) % RDW 13.5 (11.6-14.8) % Plt Count 239 (150-400) X10^3/uL Neut % (Auto) 63.5 (50-75) % Lymph % (Auto) 27.4 (25-40) % Meriwether % (Auto) 6.6 (3-14) % Eos % (Auto) 1.9 L (2-4) % Baso % (Auto) 0.6 (0-2) % Neut # (Auto) 3700 (4627-2654) /uL Lymph # (Auto) 1600 (5681-4266) /uL Meriwether # (Auto) 400 (0-900) /uL Eos # (Auto) 100 (0-450) /uL Baso # (Auto) 0 (0-100) /uL Sodium 137 (137-145) mmol/L Potassium 3.7 (3.4-5.1) mmol/L Chloride 101 (98-107) mmol/L Carbon Dioxide 30 (22-32) mmol/L BUN 17 (9-20) mg/dL Creatinine 1.30 H (0.66-1.25) mg/dL Estimated GFR > 60.0 (>60) mL/min BUN/Creatinine Ratio 13.1 (6-22) Glucose 100 (70-100) mg/dL Calcium 9.2 (8.4-10.2) mg/dL Total Bilirubin 0.6 (0.2-1.3) mg/dL AST 29 (17-59) IU/L ALT 27 (<50) IU/L Alkaline Phosphatase 59 (38-126) U/L Total Creatine Kinase 152 (55-170) U/L CK-MB (CK-2) 0.41 (<2.37) ng/mL CK-MB (CK-2) Rel Index 0.3 L (1.5-5.0) % Troponin I < 0.012 (0.01-0.034) ng/mL Total Protein 7.4 (6.3-8.2) g/dL Albumin 4.2 (3.5-5.0) g/dL Globulin 3.2 (1.7-4.1) g/dL Albumin/Globulin Ratio 1.3 (1.0-2.8) Lipase 55 (23-300) U/L ECG Data Attestation: I personally reviewed and interpreted this ECG as follows: Prior ECG tracings: not available for review Interpretation: Normal sinus rhythm rate 89 p.r. interval 180 QRS [address] elevations depressions or T-wave inversions no prior to compare MDM Narrative Medical decision making narrative: The patient is no sign of end-organ damage. He has difficult to control blood pressure he is seen by Cardiology and PCP. At this time no sign of end-organ damage she is asymptomatic. Patient can be followed up as outpatient. Discharge Plan Departure Patient Disposition: Home Clinical Impression: Essential hypertension Discharge Date/Time: 07/24/19 15:05 Instructions: DI for High Blood Pressure Activity Restrictions/Additional Instructions: *You have been diagnosed with hypertension *What to do: Your blood pressure is noted to be elevated it is recommended that you speak with your insurance loss adjuster or primary care provider in regards to your medication. At this time her blood pressure has come down while in the emergency department. Her blood work overall is reassuring. *Continue to take medications as directed *Follow up with your primary care provider in 2-3 days *Return to ER if you should have persistently elevated blood pressure, headache, vision changes weakness numbness tingling chest pain shortness of breath or any new, worsening or concerning symptoms Prescriptions: No Action multivitamin tablet 1 tab PO DAILY RF: 0 lovastatin 40 mg tablet 40 mg PO BEDTIME Qty: 0 RF: 0 Fish Oil/Vitamin D3 1 cap PO .QDAY RF: 0 ibuprofen 200 mg tablet 800 mg PO Q6-8H PRNRF: 0 acetaminophen [Tylenol Extra Strength] 500 mg tablet 1,000 mg PO Q6H PRNRF: 0 diphenhydramine HCl [Benadryl Allergy] 25 mg tablet 25 mg PO BEDTIME PRNRF: 0 valsartan-hydrochlorothiazide 80-12.5 mg tablet 1 tab PO DAILY Qty: 30 RF: 1 magnesium 1 tab PO DAILY RF: 0 (DME) ResMed AirSense 10 Auto CPAP Qty: 1 RF: 0 Referrals: Inez Alexandre PA-C [Primary Care Provider] -
[2019-07-24 14:22] LABS: Add Manual Diff / Slide Review NO; Basophils Absolute Auto 0 /uL (0-100); Basophils Percent Auto 0.6 % (0-2); Eosinophils Absolute Auto 100 /uL (0-450); Eosinophils Percent Auto 1.9 % (2-4); Lymphocytes Absolute Auto 1600 /uL (1100-4500); Lymphocytes Percent Auto 27.4 % (25-40); Mean Corpuscular HGB Conc 34.2 % (30-36); Mean Corpuscular Volume 87.7 fL (80-100); Monocytes Absolute Auto 400 /uL (0-900); Monocytes Percent Auto 6.6 % (3-14); Neutrophils Absolute Auto 3700 /uL (1500-7000); Neutrophils Percent Auto 63.5 % (50-75); Platelet Count 239 X10^3/uL (150-400); Red Blood Cell Count 5.02 X10^6/uL (4.5-5.9); Red Cell Distribution Width 13.5 % (11.6-14.8); White Blood Cell Count 5.8 X10^3/uL (4.5-11.0)
--- NOTE | 2019-07-24 14:28 | PC.NURSE ---
Pt denies any sx. Pt was at the dentist which he normally has anxiety about,they did a routine blood pressure check. It was high,told to go to the ED. 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 Pt denies pain at triage.
[2019-07-24 14:30] VITALS: BP 155/104; PULSE 77; RESP 17; O2SAT 94
[2019-07-24 14:33] LABS: Alanine Aminotransferase 27 IU/L (<50); Albumin 4.2 g/dL (3.5-5.0); Albumin Globulin Ratio 1.3 (1.0-2.8); Alkaline Phosphatase 59 U/L (38-126); Aspartate Aminotransferase 29 IU/L (17-59); BUN Creatinine Ratio 13.1 (6-22); Bilirubin Total 0.6 mg/dL (0.2-1.3); Blood Urea Nitrogen 17 mg/dL (9-20); Calcium 9.2 mg/dL (8.4-10.2); Carbon Dioxide 30 mmol/L (22-32); Chloride 101 mmol/L (98-107); Creatine Kinase 152 U/L (55-170); Estimated Glomerular Filt Rate > 60.0 mL/min (>60); Globulin 3.2 g/dL (1.7-4.1); Glucose 100 mg/dL (70-100); HEMOLYSIS < 15 (0-50); Lipase 55 U/L (23-300); Potassium 3.7 mmol/L (3.4-5.1); Sodium 137 mmol/L (137-145); Total Protein 7.4 g/dL (6.3-8.2)
[2019-07-24 14:44] LABS: Troponin I < 0.012 ng/mL (0.01-0.034)
[2019-07-24 14:48] LABS: CKMB % Relative Index 0.3 % (1.5-5.0); Creatine Kinase MB 0.41 ng/mL (<2.37)
[2019-07-24 14:57] VITALS: BP 155/104; PULSE 75; O2SAT 95
== END 2019-07-24 15:05 | disposition home or self-care (01) ==
PROVIDERS: Emergency Provider Emergency Medicine; PCP Physician Assistant
DX: I10 Essential (primary) hypertension (principal)
CPT/HCPCS: 36415; 80053; 82550; 82553; 83690; 84484; 85025; 93005; 99283; 99284

== ENCOUNTER 2019-11-02 23:36 | Emergency (ER) | payer OTHER, MEDICAID, SELFPAY ==
[2019-11-02 23:51] VITALS: BP 175/90; PULSE 76; RESP 20; TEMP 36.6; O2SAT 98
--- NOTE | 2019-11-03 00:08 | ED.DENTAL ---
HPI - Dental/Oral General Chief complaint: Dental/Oral Stated complaint: left side upper tooth pain Time Seen by Provider: 11/03/19 00:07 Source: patient Mode of arrival: Ambulatory Limitations: no limitations History of Present Illness HPI Narrative: This is a 44-year-old male who comes to the emergency department with complaint of left-sided upper tooth pain. Patient denies any fevers. He states that the pain started increasingly tonight. He tried some and thus all which was unhelpful, took some ibuprofen and elected to here. Patient states ibuprofen might be starting to help. No fevers. No swelling. He states that he had been told he had a cavity in that tooth in would probably need a root canal at some point. He has not appreciated any swelling or discharge or foul taste. He had was eating subway this evening but does not remember biting down or having any trauma that due to the tooth. Patient states a little nausea no vomiting. No swelling of the airway. Denies any other symptoms. Patient has a history of hypertension and dyslipidemia. Related Data Home Medications Medication Instructions Recorded Confirmed multivitamin 1 tab PO DAILY 01/10/18 09/12/19 ResMed AirSense 10 Auto CPAP #1 ea 10/11/18 09/12/19 lovastatin 40 mg tablet 40 mg PO BEDTIME #0 tab 10/23/18 09/12/19 magnesium 1 tab PO DAILY 01/26/19 09/12/19 Fish Oil/Vitamin D3 1 cap PO .QDAY 02/01/19 09/12/19 acetaminophen 500 mg tablet 1,000 mg PO Q6H PRN 02/01/19 09/12/19 diphenhydramine HCl 25 mg tablet 25 mg PO BEDTIME PRN 02/01/19 09/12/19 ibuprofen 200 mg tablet 800 mg PO Q6-8H PRN tab 02/01/19 09/12/19 spironolactone 25 mg tablet 25 mg PO DAILY 08/08/19 09/12/19 Previous Rx's Medication Instructions Recorded bupropion HCl 150 mg tablet,12 hr 150 mg PO QAM #30 each 09/12/19 sustained-release Allergies Allergy/AdvReac Type Severity Reaction Status Date / Time Iodinated Contrast Media AdvReac Severe Swollen Verified 09/12/19 11:39 [Iodinated Contrast- Oral Tounge, and IV Dye] Hives iodine [IODINE] AdvReac Severe SWOLLEN Verified 09/12/19 11:39 THROAT, BURNING EYES AND HIVES ALL OVER BODY amlodipine AdvReac Intermediate Swelling Verified 09/12/19 11:39 in legs; weight gain lisinopril AdvReac Mild Itchy Verified 09/12/19 11:39 throat, itchy eyes SSRIs AdvReac Nausea, Uncoded 09/12/19 11:39 Fatigue, Sweating Review of Systems Review of Systems ROS Unobtainable: All systems reviewed & are unremarkable except as noted in HPI and below Patient History Medical History Anxiety (Inactive ~2006) Chronic back pain (Inactive ~2009) Depression (Inactive ~2006) Eczema (Inactive ~2009) Essential (primary) hypertension (Chronic ~2012) Foot pain (Inactive ~2016) Gout (Inactive ~2015) Hemorrhoids (Inactive ~2013) Insomnia, unspecified (Chronic) Obesity (Chronic) Obstructive sleep apnea of adult (Chronic) Scoliosis (Inactive) Sleep apnea (Inactive ~2011) Surgical History Hx of removal of cyst (Inactive) Social History marital status: details: has [place] GF [place] household members: friend(s) lives independently: Yes caregiver/support person: No housing: house pets and animals: Yes education level: college occupational status: employed seatbelt use: always water heater temp set < 120 deg: Yes working smoke detector in home: Yes fire extinguisher in home: Yes carbon monox detector in home: Yes firearms in home: No Smoking Status: Never smoker second hand exposure: No alcohol intake: current (a glass of rum and coke or beer once or twice a year) substance use type: does not use during the past year weight has: increased > 10 lbs well-balanced diet: daily or most days daily servings fruits/ve-1 caffeine: Yes eating out: rarely or never Type(s) of exercise: walking, yoga and additional (strethching, light weights) frequency: 3-4 times per week duration: 45-60 minutes/day Smoking Status: Never smoker alcohol intake frequency: a few times a month Substance Use Type: marijuana Exam Narrative Exam Narrative: GEN: well nourished, well appearing male, alert and oriented x 3, patient appears to be in mild distress. HEENT: Atraumatic, pupils are equal round reactive to light, extraocular movements are intact, nares are clear, TMs are clear with no fluid, there is no conjunctival pallor. Throat is clear without any exudates, erythema, tonsillar enlargement or uvular deviation, patient appears to have a filling in that tooth it appears intact. Patient is tender in that area but there is no redness swelling or other signs of abscess. No facial swelling. HEART: Regular rate and rhythm without murmur, clicks, rubs. No carotid bruits, pulses are equal in upper and lower extremities LUNGS:Lungs clear to auscultation, no wheezes, rales, crackles, chest moves symmetrically ABD:bowel sounds normal, soft, non-tender, no guarding, rebound, rigidity, no masses noted, no hepatosplenomegaly MSCL: Non-tender, no muscle atrophy, muscles strength 5/5 upper and lower extremities, full range of motion, normal gait NEURO:CN 2-12 intact, sensation normal Initial Vital Signs Initial Vital Signs: Vital Signs Temperature 97.8 F 11/02/19 23:51 Pulse Rate 76 11/02/19 23:51 Respiratory Rate 20 11/02/19 23:51 Blood Pressure 175/90 H 11/02/19 23:51 Pulse Oximetry 98 11/02/19 23:51 Course Orders Ordered: Discontinued Medications Ketorolac Tromethamine (Toradol) 30 mg IM NOW ONE Stop: 11/03/19 00:21 Last Admin: 11/03/19 00:33 Dose: 30 mg Documented by: MATT Tramadol HCl (Ultram 50mg Prepack) 1 bottle MISC SEEINSTR ONE Stop: 11/03/19 00:22 Last Admin: 11/03/19 00:32 Dose: 1 bottle Documented by: MATT Vital Signs Vital signs: Vital Signs - 8 hr 11/02/19 23:51 11/03/19 00:56 Temperature 97.8 F Pulse Rate 76 80 Respiratory Rate 20 18 Blood Pressure 175/90 H 150/78 H Pulse Oximetry 98 98 MDM - Dental/Oral MDM Narrative Medical decision making narrative: Discussed with patient he is going to call in the morning to find a dentist for his tooth. I do not see any signs of infection plan to give IM dose of pain medication and a short prepack of pain medication and patient is to follow up with a dentist. Discharge Plan Departure Patient Disposition: Home Clinical Impression: Pain, dental Discharge Date/Time: 11/03/19 00:57 Instructions: DI for Dental Pain Activity Restrictions/Additional Instructions: Follow-up with the dentist in the next several days. Take pain medication as prescribed, you may take ibuprofen with this pain medication. Return to the ER for fevers greater 100.4 F, passing out, swelling of the airway. Purulent discharge, redness, skin changes or fluid accumulation in the mouth or cheek or other new or concerning symptoms. Prescriptions: No Action multivitamin tablet 1 tab PO DAILY RF: 0 lovastatin 40 mg tablet 40 mg PO BEDTIME Qty: 0 RF: 0 Fish Oil/Vitamin D3 1 cap PO .QDAY RF: 0 ibuprofen 200 mg tablet 800 mg PO Q6-8H PRNRF: 0 acetaminophen [Tylenol Extra Strength] 500 mg tablet 1,000 mg PO Q6H PRNRF: 0 diphenhydramine HCl [Benadryl Allergy] 25 mg tablet 25 mg PO BEDTIME PRNRF: 0 spironolactone 25 mg tablet 25 mg PO DAILY RF: 0 bupropion HCl 150 mg tablet sustained-release 12 hr 150 mg PO QAM Qty: 30 RF: 6 magnesium 1 tab PO DAILY RF: 0 (DME) ResMed AirSense 10 Auto CPAP Qty: 1 RF: 0 Referrals: Inez Alexandre PA-C [Primary Care Provider] -
[2019-11-03] MEDS: TRAMADOL 50 MG PREPACK 1 BOTTLE MISC (00:32)
[2019-11-03] MEDS: KETOROLAC 60 MG/2 ML VIAL 30 MG IM (00:33)
[2019-11-03 00:56] VITALS: BP 150/78; PULSE 80; RESP 18; O2SAT 98
== END 2019-11-03 00:57 | disposition home or self-care (01) ==
PROVIDERS: Emergency Provider Emergency Medicine; PCP Physician Assistant
DX: K08.89 Other specified disorders of teeth and supporting structures (principal)
CPT/HCPCS: 96372; 99283; J1885

== ENCOUNTER → 2019-11-06 16:55 | Outpatient (CLI) | payer OTHER, MEDICAID, SELFPAY ==
[2019-11-06 18:13] LABS: Alanine Aminotransferase 26 IU/L (<50); Albumin 4.3 g/dL (3.5-5.0); Albumin Globulin Ratio 1.3 (1.0-2.8); Alkaline Phosphatase 55 U/L (38-126); Aspartate Aminotransferase 26 IU/L (17-59); Bilirubin Total 0.3 mg/dL (0.2-1.3); Blood Urea Nitrogen 18 mg/dL (9-20); Calcium 9.2 mg/dL (8.4-10.2); Carbon Dioxide 28 mmol/L (22-32); Chloride 106 mmol/L (98-107); Estimated Glomerular Filt Rate > 60.0 mL/min (>60); Globulin 3.4 g/dL (1.7-4.1); Glucose 86 mg/dL (70-100); HEMOLYSIS 17 (0-50); Potassium 4.1 mmol/L (3.4-5.1); Sodium 143 mmol/L (137-145); Total Protein 7.7 g/dL (6.3-8.2)
== END ==
PROVIDERS: PCP Internal Medicine; Referring Provider Internal Medicine; Visit Provider Internal Medicine
DX: I10 Essential (primary) hypertension (principal)
CPT/HCPCS: 36415; 80053

== ENCOUNTER 2020-01-21 04:00 | Observation (INO) | payer OTHER, MEDICAID, SELFPAY ==
[2020-01-21] VITALS (29 sets, daily range): BP systolic 128–241; BP diastolic 63–121; PULSE 74–122; RESP 11–29; TEMP 36.6–37.3; O2SAT 91–98; BMI 39.9; BMI 41.4
--- NOTE | 2020-01-21 04:10 | DI.RAD.S_ITS ---
PROCEDURE: XR CHEST 1V INDICATIONS: SOB TECHNIQUE: One view of the chest was acquired. COMPARISON: [facility], CR, XR CHEST 1V, 01/26/2019, 16:26. FINDINGS: Surgical changes and devices: None. Lungs and pleura: Lungs are clear. No pleural effusions or pneumothorax. Mediastinum: Mediastinal contours appear normal. Heart size is normal. Bones and chest wall: No suspicious bony lesions. Overlying soft tissues appear unremarkable. IMPRESSION: Reduced inspiratory volume, no source of shortness of breath was found when this is taken into account. Dictated by: Shine Carcamo M.D. on 01/21/2020 at 8:18 Approved by: Shine Carcamo M.D. on 01/21/2020 at 8:18
[2020-01-21] MEDS: SODIUM CHLORIDE 0.9% 1,000 ML 150 ML IV (04:21)
[2020-01-21] MEDS: methylPREDNISolone 125 MG/2 ML VIAL IV (04:21)
[2020-01-21] MEDS: LABETALOL 20 MG/4 ML SYRINGE 10 MG IV (04:22)
[2020-01-21 04:27] LABS: Add Manual Diff / Slide Review NO; Basophils Absolute Auto 100 /uL (0-100); Basophils Percent Auto 1.8 % (0-2); Eosinophils Absolute Auto 200 /uL (0-450); Eosinophils Percent Auto 2.2 % (2-4); Hematocrit 45.3 % (41-53); Hemoglobin 15.3 g/dL (13.5-17.5); Lymphocytes Absolute Auto 2500 /uL (1100-4500); Lymphocytes Percent Auto 34.3 % (25-40); Mean Corpuscular HGB Conc 33.7 % (30-36); Mean Corpuscular Hemoglobin 29.7 PG (26-34); Monocytes Absolute Auto 600 /uL (0-900); Monocytes Percent Auto 8.3 % (3-14); Neutrophils Absolute Auto 3900 /uL (1500-7000); Neutrophils Percent Auto 53.4 % (50-75); Platelet Count 280 X10^3/uL (150-400); Red Blood Cell Count 5.15 X10^6/uL (4.5-5.9); Red Cell Distribution Width 13.9 % (11.6-14.8); White Blood Cell Count 7.3 X10^3/uL (4.5-11.0)
[2020-01-21 04:33] LABS: BUN Creatinine Ratio 12.7 (6-22); Blood Urea Nitrogen 15 mg/dL (9-20); Calcium 9.2 mg/dL (8.4-10.2); Carbon Dioxide 28 mmol/L (22-32); Chloride 106 mmol/L (98-107); Creatine Kinase 263 U/L (55-170); Estimated Glomerular Filt Rate > 60.0 mL/min (>60); Glucose 90 mg/dL (70-100); HEMOLYSIS 33 (0-50); Magnesium 2.5 mg/dL (1.6-2.3); Potassium 3.8 mmol/L (3.4-5.1); Sodium 141 mmol/L (137-145)
[2020-01-21 04:35] LABS: D Dimer < 200 ng/mL (<230)
--- NOTE | 2020-01-21 04:40 | ED.CHESTPAIN ---
HPI - Chest Pain General Chief Complaint: Chest Pain Stated Complaint: cant sleep chest heavy chest pain Time Seen by Provider: 01/21/20 04:02 Source: patient Mode of arrival: Ambulatory Limitations: no limitations History of Present Illness HPI narrative: 44-year-old male nonsmoker with history of central sleep apnea, hypertension, hyperlipidemia presents with a chief complaint of chest pressure and heaviness as well as trouble catching his breath for the past 3 days. He states it has largely been present for much of that time and denies any provocation or palliation. Specifically, he denies any obvious exertional worsening of his symptoms. In addition he states he has had a squeezing, pounding headache that seems to respond to Tylenol on occasion. He does routinely take labetalol but has not been taking it as prescribed. He denies associated cardiac symptoms such as nausea, vomiting, unexplained diaphoresis, or exertional symptoms. Additionally he denies any radiation of his discomfort stating it is more a generalized chest squeezing and pressure, rather than a pinpoint pain. He denies any recent travel, exposure to persons known to have coronavirus or history of blood clot. He's had no fever or chills nor runny nose, sneezing, coughing or sore throat. Related Data Home Medications Medication Instructions Recorded Confirmed multivitamin 1 tab PO DAILY 01/10/18 11/16/19 ResMed AirSense 10 Auto CPAP #1 ea 10/11/18 11/16/19 lovastatin 40 mg tablet 40 mg PO BEDTIME #0 tab 10/23/18 01/21/20 magnesium 1 tab PO DAILY 01/26/19 11/16/19 Fish Oil/Vitamin D3 1 cap PO .QDAY 02/01/19 11/16/19 acetaminophen 500 mg tablet 1,000 mg PO Q6H PRN 02/01/19 11/16/19 diphenhydramine HCl 25 mg tablet 25 mg PO BEDTIME PRN 02/01/19 11/16/19 ibuprofen 200 mg tablet 800 mg PO Q6-8H PRN tab 02/01/19 11/16/19 labetalol 100 mg tablet 100 mg PO DAILY 11/16/19 01/21/20 Allergies Allergy/AdvReac Type Severity Reaction Status Date / Time Iodinated Contrast Media AdvReac Severe Swollen Verified 09/12/19 11:39 [Iodinated Contrast- Oral Tounge, and IV Dye] Hives iodine [IODINE] AdvReac Severe SWOLLEN Verified 09/12/19 11:39 THROAT, BURNING EYES AND HIVES ALL OVER BODY amlodipine AdvReac Intermediate Swelling Verified 09/12/19 11:39 in legs; weight gain lisinopril AdvReac Mild Itchy Verified 09/12/19 11:39 throat, itchy eyes SSRIs AdvReac Nausea, Uncoded 09/12/19 11:39 Fatigue, Sweating Review of Systems Constitutional Constitutional: Denies chills, Reports fatigue, Denies fever(s), Denies frequent falls, Denies lethargy, Reports stops breathing during sleep and Reports weakness Eyes Eyes: Denies change in vision, Denies eye discharge, Denies irritation and Denies loss of vision ENT Ears, Nose, Mouth, and Throat: Denies change in voice, Denies dizziness, Denies neck pain, Denies sore throat and Denies throat swelling Cardiovascular Cardiovascular: Reports chest pain, Denies irregular heart rhythm, Denies lightheadedness, Denies palpitations, Reports dyspnea, Denies dyspnea on exertion and Denies orthopnea Respiratory Respiratory: Denies cough, Reports dyspnea, Denies dyspnea on exertion and Denies wheezing Gastrointestinal Gastrointestinal: Denies abdominal pain, Denies change in bowel habits, Denies diarrhea, Denies nausea and Denies vomiting Genitourinary Genitourinary: Denies hematuria, Denies flank pain, Denies urinary incontinence and Denies urinary urgency Musculoskeletal Musculoskeletal: Denies back pain, Denies muscle weakness, Denies neck pain, Denies numbness and Denies tingling Integumentary/Breasts Skin/Breast: Denies pruritus, Denies erythema, Denies rash and Denies wounds Neurologic Neurologic: Denies behavioral changes, Denies confusion, Denies dizziness, Denies frequent falls, Denies loss of vision, Denies numbness, Denies tingling and Reports weakness Psychiatric Psychiatric: Denies anxiety, Denies behavioral changes, Denies confusion, Denies depression, Denies homicidal ideation and Denies suicidal ideation Endocrine Endocrine: Reports fatigue, Denies flushing and Denies palpitations Hematologic/Lymphatic Hematologic/Lymphatic: Denies easy bruising Allergic/Immunologic Allergic/Immunologic: Denies urticaria, Denies throat swelling and Denies wheezing Patient History Medical History Anxiety (Inactive ~2006) Chronic back pain (Inactive ~2009) Depression (Inactive ~2006) Eczema (Inactive ~2009) Essential (primary) hypertension (Chronic ~2012) Excessive daytime sleepiness (Chronic) Foot pain (Inactive ~2016) Gout (Inactive ~2015) Hemorrhoids (Inactive ~2013) Insomnia, unspecified (Chronic) Morbid obesity with body mass index (BMI) of 40.0 to 49.9 (Chronic) Obstructive sleep apnea of adult (Chronic) Scoliosis (Inactive) Surgical History Hx of removal of cyst (Inactive) Family History Father Heart disease Diabetes mellitus Hypertension Hyperlipidemia Mother Fibromyalgia Brother Diabetes mellitus Grandmother Heart attack Social History marital status: details: has [place] GF [place] household members: friend(s) lives independently: Yes caregiver/support person: No housing: house pets and animals: Yes education level: college occupational status: employed seatbelt use: always water heater temp set < 120 deg: Yes working smoke detector in home: Yes fire extinguisher in home: Yes carbon monox detector in home: Yes firearms in home: No Smoking Status: Never smoker second hand exposure: No alcohol intake: current (a glass of rum and coke or beer once or twice a year) substance use type: does not use during the past year weight has: increased > 10 lbs well-balanced diet: daily or most days daily servings fruits/ve-1 caffeine: Yes eating out: rarely or never Type(s) of exercise: walking, yoga and additional (strethching, light weights) frequency: 3-4 times per week duration: 45-60 minutes/day Smoking Status: Never smoker alcohol intake frequency: a few times a month Substance Use Type: marijuana Exam Narrative Exam Narrative: GENERAL: [44] year old patient appears stated age. Morbidly obese, anxious, clearly not feeling well. Speaking full sentences HEAD: Atraumatic. Normocephalic. EYES: Pupils equal round and reactive. Extraocular motions intact. No scleral icterus. No injection or drainage. ENT: Nose without bleeding, purulent drainage. Throat without erythema, tonsillar hypertrophy or exudate. Airway patent. NECK: Trachea midline. Non tender CARDIOVASCULAR: Regular rate and rhythm without murmurs, gallops, or rubs. RESPIRATORY: Clear to auscultation. Breath sounds equal bilaterally. No wheezes, rales, or rhonchi. Good effort. GASTROINTESTINAL: Abdomen soft, non-tender, nondistended. EXTREMITIES: No edema or joint tenderness. BACK: Nontender without deformity or crepitance. No flank tenderness. NEURO: AOx3. SKIN: No rash or erythema of visible areas Initial Vital Signs Initial Vital Signs: Vital Signs Temperature 97.8 F 01/21/20 04:09 Pulse Rate 91 H 01/21/20 04:09 Respiratory Rate 28 H 01/21/20 04:09 Blood Pressure 241/121 H 01/21/20 04:09 Pulse Oximetry 98 01/21/20 04:09 Course Orders Ordered: ED Orders 01/21/20 04:07 EKG-12 Lead Stat 01/21/20 04:09 Consult to Respiratory Therapy Evaluate & Treat 01/21/20 04:10 XR chest 1V Stat 01/21/20 04:15 Basic Metabolic Panel Stat Complete Blood Count AUTO DIFF Stat D Dimer Stat Magnesium Stat NT-proBNP (BNP-Adult 18+) Stat Procalcitonin Stat Troponin & CK Cardiac Panel Stat 01/21/20 04:35 Lactate (Lactic Acid) Stat Acetaminophen (Tylenol) 650 mg PO Q6HR PRN PRN Reason: Fever/Mild Pain (1-3) Al Hydrox/Mg Hydrox/Simethicone (Maalox Plus) 30 ml PO Q6HR PRN PRN Reason: Dyspepsia Bisacodyl (Dulcolax) 10 mg [place] DAILY PRN PRN Reason: Constipation Calcium Carbonate (Tums) 1,000 mg PO Q4HR PRN PRN Reason: Dyspepsia Diltiazem HCl (Cardizem Sr) 60 mg PO BID [facility] Enoxaparin Sodium (Lovenox) 40 mg SUBCUT DAILY [facility] Nicardipine HCl 25 mg/ Sodium (Chloride) 250 mls @ 50 mls/hr IV TITRATE MANAS; Protocol Last Admin: 01/21/20 04:51 Dose: 5 mg/hr, 50 mls/hr Documented by: JEFF Sodium Chloride (Normal Saline 0.9%) 1,000 mls @ 0 mls/hr IV CONT MANAS Losartan Potassium (Cozaar) 50 mg PO DAILY MANAS Naloxone HCl (Narcan) 0.2 mg IV Q2MIN PRN PRN Reason: Opiate Reversal Ondansetron HCl (Zofran) 4 mg IV Q8HR PRN PRN Reason: Nausea And Vomiting Pantoprazole Sodium (Protonix) 40 mg IV DAILY MANAS Discontinued Medications Sodium Chloride (Normal Saline 0.9%) 1,000 mls @ 150 mls/hr IV CONT MANAS Stop: 01/21/20 06:17 Last Admin: 01/21/20 04:21 Dose: 150 mls/hr Documented by: JEFF Labetalol HCl (Trandate) 10 mg IV NOW ONE Stop: 01/21/20 04:10 Last Admin: 01/21/20 04:22 Dose: 10 mg Documented by: JEFF Methylprednisolone (Solu-Medrol 125 Mg Vial) 125 mg IV NOW ONE Stop: 01/21/20 04:10 Last Admin: 01/21/20 04:21 Dose: 125 mg Documented by: JEFF Reevaluation(s) Reevaluation #1: patient given Labetalol and BP increases to 240s/130s. Nicardipine ordered Soon after nicardipine ordered blood pressure drops into the 180s. Patient has much better color. Chest pain and perceived shortness of breath have all all but resolved. Headache has gone and patient's thought process has become much more clear. GCS improved to 15 Time: 04:46 Vital Signs Vital signs: Vital Signs - 8 hr 01/21/20 04:09 01/21/20 04:55 01/21/20 05:12 Temperature 97.8 F 98.3 F Pulse Rate 91 H 74 82 Respiratory Rate 28 H 11 L Blood Pressure 241/121 H Blood Pressure [Left Arm] 186/106 H 172/89 H Pulse Oximetry 98 97 01/21/20 05:20 01/21/20 05:24 01/21/20 05:26 Temperature Pulse Rate 83 81 84 Respiratory Rate Blood Pressure 237/121 H Blood Pressure [Left Arm] 194/99 H 176/98 H Pulse Oximetry MDM - Chest Pain Lab Data Result diagrams: 01/21/20 04:15 01/21/20 04:15 Labs: Lab Results 01/21/20 01/21/20 01/21/20 Range/Units 04:15 04:15 04:15 WBC 7.3 (4.5-11.0) X10^3/uL RBC 5.15 (4.5-5.9) X10^6/uL Hgb 15.3 (13.5-17.5) g/dL Hct 45.3 (41-53) % MCV 88.0 (80-100) fL MCH 29.7 (26-34) PG MCHC 33.7 (30-36) % RDW 13.9 (11.6-14.8) % Plt Count 280 (150-400) X10^3/uL Neut % (Auto) 53.4 (50-75) % Lymph % (Auto) 34.3 (25-40) % [place] % (Auto) 8.3 (3-14) % Eos % (Auto) 2.2 (2-4) % Baso % (Auto) 1.8 (0-2) % Neut # (Auto) 3900 (6590-6820) /uL Lymph # (Auto) 2500 (9898-5766) /uL [place] # (Auto) 600 (0-900) /uL Eos # (Auto) 200 (0-450) /uL Baso # (Auto) 100 (0-100) /uL D-Dimer < 200 (<230) ng/mL Sodium 141 (137-145) mmol/L Potassium 3.8 (3.4-5.1) mmol/L Chloride 106 (98-107) mmol/L Carbon Dioxide 28 (22-32) mmol/L BUN 15 (9-20) mg/dL Creatinine 1.18 (0.66-1.25) mg/dL Estimated GFR > 60.0 (>60) mL/min BUN/Creatinine Ratio 12.7 (6-22) Glucose 90 (70-100) mg/dL Lactate (0.7-2.1) mmol/L Calcium 9.2 (8.4-10.2) mg/dL Magnesium 2.5 H (1.6-2.3) mg/dL Total Creatine Kinase 263 H (55-170) U/L CK-MB (CK-2) 0.99 (<2.37) ng/mL CK-MB (CK-2) Rel Index 0.4 L (1.5-5.0) % Troponin I < 0.012 (0.01-0.034) ng/mL NT-Pro-B Natriuret Pep 44 (<125) pg/mL Procalcitonin (<0.5) ng/mL COVID-19 PCR (Negative) 01/21/20 01/21/20 01/21/20 Range/Units 04:15 04:35 05:15 WBC (4.5-11.0) X10^3/uL RBC (4.5-5.9) X10^6/uL Hgb (13.5-17.5) g/dL Hct (41-53) % MCV (80-100) fL MCH (26-34) PG MCHC (30-36) % RDW (11.6-14.8) % Plt Count (150-400) X10^3/uL Neut % (Auto) (50-75) % Lymph % (Auto) (25-40) % [place] % (Auto) (3-14) % Eos % (Auto) (2-4) % Baso % (Auto) (0-2) % Neut # (Auto) (0490-7157) /uL Lymph # (Auto) (0435-1183) /uL [place] # (Auto) (0-900) /uL Eos # (Auto) (0-450) /uL Baso # (Auto) (0-100) /uL D-Dimer (<230) ng/mL Sodium (137-145) mmol/L Potassium (3.4-5.1) mmol/L Chloride (98-107) mmol/L Carbon Dioxide (22-32) mmol/L BUN (9-20) mg/dL Creatinine (0.66-1.25) mg/dL Estimated GFR (>60) mL/min BUN/Creatinine Ratio (6-22) Glucose (70-100) mg/dL Lactate 1.6 (0.7-2.1) mmol/L Calcium (8.4-10.2) mg/dL Magnesium (1.6-2.3) mg/dL Total Creatine Kinase (55-170) U/L CK-MB (CK-2) (<2.37) ng/mL CK-MB (CK-2) Rel Index (1.5-5.0) % Troponin I (0.01-0.034) ng/mL NT-Pro-B Natriuret Pep (<125) pg/mL Procalcitonin < 0.05 (<0.5) ng/mL COVID-19 PCR Negative (Negative) Urine Dip Bedside Urine Glucose Negative Bedside Urine Bilirubin - Negative Bedside Urine Ketone - Negative Urine Specific [place] 1.015 Bedside Urine Occult Blood - Negative Bedside Urine pH 8.0 Bedside Urine Protein - Negative Bedside Urine Urobilinogen - Negative Bedside Urine Nitrite - Negative Bedside Urine Leukocytes - Negative Esterase Discharge Plan Departure Patient Disposition: Admitted As Inpatient Clinical Impression: Encephalopathy, hypertensive Admit Date/Time: 01/21/20 05:55 Admit Provider: Balaji Riojas
[2020-01-21 04:45] LABS: NT-proBNP (BNP-Adult 18+) 44 pg/mL (<125); Troponin I < 0.012 ng/mL (0.01-0.034)
[2020-01-21 04:48] LABS: CKMB % Relative Index 0.4 % (1.5-5.0); Creatine Kinase MB 0.99 ng/mL (<2.37); Procalcitonin < 0.05 ng/mL (<0.5)
[2020-01-21] MEDS: NICARDIPINE 25 MG in SODIUM CHLORIDE 0.9% 240 ML 50 ML IV (04:51)
[2020-01-21 04:53] LABS: Lactate (Lactic Acid) 1.6 mmol/L (0.7-2.1)
[2020-01-21 06:14] LABS: COVID19 -Nasal RAPID Negative (Negative)
--- NOTE | 2020-01-21 06:23 | PM.HP.1 ---
History of Present Illness <MARY ANN Escobar - Last Filed: 01/21/20 07:13> History of Present Illness Date Patient Seen: 01/21/20 Time Patient Seen: 06:01 Chief complaint: cant sleep chest heavy chest pain Narrative: Mr. Timmy Dorsey is a 44-year-old male who was a nonsmoker with a history significant for hypertension, central sleep apnea, GERD, morbid obesity, anxiety and depression, gout chronic back pain who presents to the ER per self with complaints of chest pressure and heaviness. The patient reports increasing chest pain and pressure oversew the last 3 days that has waxed and wane to some degree with his level of anxiety. He describes being under increased relationship stress as well as attempting to wean off his labetalol related to adverse side effects. The patient reports having associated headache and some breathlessness. He endorses visual changes of difficulty reading when his blood pressure is elevated. He has had nausea without vomiting a few days ago but none today. His discomfort is not worsened with activity. He has had no recent illness fevers or chills or known COVID-19 exposures. He reports no nasal congestion or sore throat. He has chest pressure as above that is nonradiating or pleuritic. He has had no cough or wheezing. He endorses epigastric discomfort and heartburn that will radiate through to the back that he has been self treating with omeprazole. He reports no difficulty urinating when he uses his CPAP will have nocturia 1-2 times nightly. Off CPAP he will have nocturia greater than 5 times nightly. He he denies changes in bowel habits. Upon arrival the patient is afebrile with temperature 97.8?, heart rate of 91, blood pressure of 241/121, respirations 28 oxygen saturation of 98% on room air. Chest x-ray is obtained which shows no acute cardiopulmonary findings. He has a 12 lead EKG done the finds sinus rhythm with a ventricular rate of 86, without ectopy or block, no ischemia, T-wave for ST changes or infarct. On laboratory analysis he has a white count of 7.3, hemoglobin of 15.3 and hematocrit of 45.3, platelets of 280. His electrolytes are within normal range and he has a BUN of 15 and creatinine 1.18. His nonfasting glucose is 90. His magnesium level is 2.5. A D-dimer is obtained which is less than 200 has a total CK of 268 with CK-MB of 0.99 for a index of 0.4. History phone is less than 0.012. BNP is 44. In the ER the patient received labetalol IV methylprednisolone with no significant improvement in blood pressure. He is started on nicardipine infusion which titrated down to a pressure of 160-170. Patient will be admitted to the medicine service to the ICU on a nicardipine drip for close monitoring. Patient History <MARY ANN Escobar - Last Filed: 01/21/20 07:13> Medical History Anxiety (Inactive ~2006) Chronic back pain (Inactive ~2009) Depression (Inactive ~2006) Eczema (Inactive ~2009) Essential (primary) hypertension (Chronic ~2012) Excessive daytime sleepiness (Chronic) Foot pain (Inactive ~2016) Gout (Inactive ~2015) Hemorrhoids (Inactive ~2013) Insomnia, unspecified (Chronic) Morbid obesity with body mass index (BMI) of 40.0 to 49.9 (Chronic) Obstructive sleep apnea of adult (Chronic) Scoliosis (Inactive) Surgical History Hx of removal of cyst (Inactive) Family & Social History Family History Father Heart disease Diabetes mellitus Hypertension Hyperlipidemia Mother Fibromyalgia Brother Diabetes mellitus Grandmother Heart attack Social History: household members friend(s) lives independently Yes caregiver/support person No Safety & Behavioral: Feels Safe in Current Yes Environment Tobacco & Substance use: Smoking Status Never smoker alcohol intake current alcohol intake frequency a few times a month Substance Use Type marijuana Meds <MARY ANN Escobar - Last Filed: 01/21/20 07:13> Home Medications and Allergies Home Medications Medication Instructions Recorded Confirmed Type multivitamin 1 tab PO DAILY 01/10/18 01/21/20 History ResMed AirSense 10 Auto CPAP #1 ea 10/11/18 01/21/20 History lovastatin 40 mg tablet 40 mg PO BEDTIME #0 tab 10/23/18 01/21/20 History acetaminophen 500 mg tablet 1,000 mg PO Q6H PRN 02/01/19 01/21/20 History diphenhydramine HCl 25 mg tablet 25 mg PO BEDTIME PRN 02/01/19 01/21/20 History labetalol 100 mg tablet 100 mg PO DAILY 11/16/19 01/21/20 History Allergies Allergy/AdvReac Type Severity Reaction Status Date / Time Iodinated Contrast Media AdvReac Severe Swollen Verified 09/12/19 11:39 [Iodinated Contrast- Oral Tounge, and IV Dye] Hives iodine [IODINE] AdvReac Severe SWOLLEN Verified 09/12/19 11:39 THROAT, BURNING EYES AND HIVES ALL OVER BODY amlodipine AdvReac Intermediate Swelling Verified 09/12/19 11:39 in legs; weight gain lisinopril AdvReac Mild Itchy Verified 09/12/19 11:39 throat, itchy eyes SSRIs AdvReac Nausea, Uncoded 09/12/19 11:39 Fatigue, Sweating Review of Systems <MARY ANN Escobar - Last Filed: 01/21/20 07:13> Review of Systems ROS: Yes All systems reviewed with the patient and are negative except as otherwise documented Exam <MARY ANN Escobar - Last Filed: 01/21/20 07:13> Vital Signs (past 8 hours): - 01/21/20 04:09 01/21/20 04:55 01/21/20 05:12 Temperature 97.8 F 98.3 F Pulse Rate 91 H 74 82 Respiratory Rate 28 H 11 L Blood Pressure 241/121 H Blood Pressure [Left Arm] 186/106 H 172/89 H Pulse Oximetry 98 97 01/21/20 05:20 01/21/20 05:24 01/21/20 05:26 Temperature Pulse Rate 83 81 84 Respiratory Rate Blood Pressure 237/121 H Blood Pressure [Left Arm] 194/99 H 176/98 H Pulse Oximetry Oxygen Delivery Method Room Air Narrative Exam Narrative: GENERAL APPEARANCE: well developed, morbidly obese male sitting semi recumbent on structure mildly uncomfortable appearing. HEENT: Normocephalic, PERRLA, conjunctiva clear, EOMs intact without nystagmus, mucous membranes are moist and pink. NECK/THYROID: neck supple, no JVD, no carotid bruit, no thyromegaly, trachea midline. LYMPH NODES: no cervical or supraclavicular lymphadenopathy. SKIN: [place], warm and dry, no visible lesions, rashes, ulcerations or petechiae. HEART: regular rate and rhythm, S1-S2, no murmur, no rubs or gallops, brisk capillary refill, trace bilateral lower extremity edema LUNGS: clear to auscultation bilaterally, no coarseness crackles or wheezing, no cough present CHEST: Symmetrical movement, no accessory muscle use, good tidal volume. ABDOMEN: Soft, round, no epigastric or abdominal tenderness, no guarding or peritoneal signs, no organomegaly, no flank or suprapubic tenderness, active bowel tones. EXTREMITIES: moves all extremities, strength is 5/5 and symmetrical, no deformities or joint effusions. NEUROLOGIC: AAO x4, no focal neurologic deficits, cranial nerves II-XII grossly intact, sensation intact to light touch, hearing grossly normal to speech. PSYCH: Patient is anxious with verbalizations that appear depressed, poor eye contact, cooperative, stable behavior. Objective <MRAY ANN Escobar - Last Filed: 01/21/20 07:13> Labs Result Diagrams: 01/21/20 04:15 01/21/20 04:15 Labs: Laboratory Results - last 24 hr 01/21/20 01/21/20 01/21/20 04:15 04:15 04:15 WBC 7.3 RBC 5.15 Hgb 15.3 Hct 45.3 MCV 88.0 MCH 29.7 MCHC 33.7 RDW 13.9 Plt Count 280 Neut % (Auto) 53.4 Lymph % (Auto) 34.3 [place] % (Auto) 8.3 Eos % (Auto) 2.2 Baso % (Auto) 1.8 Neut # (Auto) 3900 Lymph # (Auto) 2500 [place] # (Auto) 600 Eos # (Auto) 200 Baso # (Auto) 100 D-Dimer < 200 Sodium 141 Potassium 3.8 Chloride 106 Carbon Dioxide 28 BUN 15 Creatinine 1.18 Estimated GFR > 60.0 BUN/Creatinine Ratio 12.7 Glucose 90 Lactate Calcium 9.2 Magnesium 2.5 H Total Creatine Kinase 263 H CK-MB (CK-2) 0.99 CK-MB (CK-2) Rel Index 0.4 L Troponin I < 0.012 NT-Pro-B Natriuret Pep 44 Procalcitonin COVID-19 PCR 01/21/20 01/21/20 01/21/20 04:15 04:35 05:15 WBC RBC Hgb Hct MCV MCH MCHC RDW Plt Count Neut % (Auto) Lymph % (Auto) [place] % (Auto) Eos % (Auto) Baso % (Auto) Neut # (Auto) Lymph # (Auto) [place] # (Auto) Eos # (Auto) Baso # (Auto) D-Dimer Sodium Potassium Chloride Carbon Dioxide BUN Creatinine Estimated GFR BUN/Creatinine Ratio Glucose Lactate 1.6 Calcium Magnesium Total Creatine Kinase CK-MB (CK-2) CK-MB (CK-2) Rel Index Troponin I NT-Pro-B Natriuret Pep Procalcitonin < 0.05 COVID-19 PCR Negative Assessment & Plan <MARY ANN Escobar - Last Filed: 01/21/20 07:13> Assessment & Plan narrative: This is a 44-year-old male patient presents to the ER with chest pressure and heaviness for 3 days and hypertensive urgency. 1. Hypertensive urgency acute, present on admission, active. -the patient presents with symptoms of chest pressure and heaviness with associated dyspnea and headache onset 3 days ago, constant but somewhat variable. -the patient has been on labetalol but has not been taking medication as directed due to side effects. Patient has tried multiple medications including amlodipine, carvedilol and lisinopril all of which have intolerable adverse effects. -on admission to the ER the patient has blood pressure of 241/121. -EKG is sinus rhythm without ectopy, block, ischemia or infarct. Troponin is negative at less than 0.012 and BNP is 44. -the patient given labetalol in the ER without significant effect and started on a nicardipine drip which is titrated to a pressure of 170s. -ordered Cardizem SR 60 mg twice daily and titrate up as necessary. -ordered losartan 50 mg daily which the patient has used previously and tolerated. 2. Central sleep apnea, present on admission, stable. -patient is followed by the sleep clinic and has been on CPAP at home with discussion on transitioning to BiPAP. -respiratory therapy to consult evaluate and treat -order BiPAP per RT protocol. 3. Hyperlipidemia, chronic, stable. Will continue the patient's home regimen of lovastatin 40 mg daily 4. Mood disorder, chronic, stable -the patient reports relational anxiety as a partial cause of his hypertension. -patient is currently taking no anti anxiety or depression medications. He has had adverse reactions to SSRIs. -patient also has a history of depression and has been told he also has PTSD following a relationship with a woman with borderline personality. -the patient is unable to access counseling related to coronavirus lock down. 5. Morbid obesity, chronic, stable -patient has previously been motivated and lost 70 lb and is results of his recent difficult relationship he has gained his weight back. -current BMI is 39.9. -requested dietary consult. COVID-19: NEGATIVE Isolation: None IV fluid: TKO Diet: Heart healthy low-sodium Code status: FULL CODE, the patient designates his ex-, Radha Medrano, to be his surrogate decision maker. The patient is admitted to the ICU on nicardipine infusion for hypertensive urgency requiring close monitoring and titration. The patient is admitted as observation status with expected length of stay to be less than 2 midnights. Scores <MARY ANN Escobar - Last Filed: 01/21/20 07:13> GCS [place] coma scale eye opening: Spontaneous [place] coma scale verbal response: Orientated [place] coma scale motor response: [place] commands [place] coma scale total score: 15
[2020-01-21] MEDS: SODIUM CHLORIDE 0.9% 1,000 ML 21 ML IV (09:00)
[2020-01-21] MEDS: dilTIAZem SR 60 MG PO (09:01)
[2020-01-21] MEDS: PANTOPRAZOLE 40 MG VIAL IV (09:01)
[2020-01-21] MEDS: ENOXAPARIN 40 MG/0.4 ML SYRINGE SUBCUT (09:01)
[2020-01-21] MEDS: LOSARTAN 50 MG TABLET PO (09:01)
--- NOTE | 2020-01-21 12:41 | CM.DANOTE ---
DCP: Case received, EMR reviewed and met with patient. Introduced self and role. Was able to speak to patient and obtain information from him regarding his baseline activity level, health and living situation. DCP assessment completed with information currently available. Patient is a 44 year old male who admitted early this morning to the care of the hospitalist team. PCP: Dr. Salvador Bertrand. Payer: confirmed: [facility] Health Options/Medicaid. Patient came to the hospital via private vehicle secondary to having some chest discomfort. Patient has history of anxiety, as well as sleep apnea, according to patient. He holds current diagnosis of HTN. Met with patient in his room. He was laying in bed. Alert and oriented. He resides in a single family home with his room mates. His ex is Radha. Patient mentioned that he has sleep apnea, and uses a CPAP at home. He feels that he is tired and run down because of the settings on his machine. He stated that he has not been able to go to the sleep clinic due to the COVID situation. He also stated that he has been seeing a counselor here in town, stated, due to his PSD, from a negative relationship that he had with an individual. He stated, this causes more anxiety for him when he thinks about her. Patient is independent at baseline, and works from home for a company called [email or web address]. Confirmed with him that he does [facility], but hasn't been able to go recently, due to the COVID situation. P: DCP to continue to follow. Patient should be able to go home when he is medically stable. Meaghan Tate RN/[employer]
[2020-01-21] MEDS: LABETALOL 100 MG TABLET 200 MG PO ×2 (14:37→21:12)
--- NOTE | 2020-01-21 15:19 | PC.NURSE ---
Admit/Day Shift Note Patient to room 229 from ER at 0800, walked self from stretcher to bed without issue. Denies any further chest heaviness or pressure. BP in the 180s/100s on arrival, nicardipine gtt at 5 mg/hr. Alert and oriented x3. SpO2 92-96% on RA. SR/ST. Belongings placed in room closet including wallet, keys, clothing, and cell phone. Oriented to room and to call light/bed/tv controls. Pt in touch with family to bring in home CPAP machine for tonight. Declines to lock up any valuables in the safe. Nicardipine gtt off at 1010 with BP of 130s/80s after receiving PO meds (see NOV). BP increasing to 170s/100s this afternoon, notified and PO labetalol ordered and given. BP currently 164/93. Call light within reach, using appropriately to make needs known.
--- NOTE | 2020-01-21 16:48 | P.PN_ITS ---
Subjective Subjective Date Patient Seen: 01/21/20 Interval history: Patient seen same day for follow-up of hypertensive urgency. He is off nicardipine drip though blood pressures remain labile with severely elevated readings. He is not having ongoing chest pain, visual changes or mental status changes. He has significant peripheral issues of panic attacks, PTSD, had been able to lose 70 lb last year but they in regained the weight. He has been diagnosed with central sleep apnea which is treated with CPAP. He has recently had to go up on his CPAP pressures. He has history of multiple medication sensitivities. He had been on labetalol b.i.d. but lower did to q.d. thinking it was causing him gout though I pointed out to him the gout is much more likely obesity related. It seems he tolerated losartan in the past which will also be beneficial in uric acid lowering. He agrees to try labetalol again at 200 mg b.i.d. dosing. Control BP with losartan 50 mg q.d. and labetalol 200 mg b.i.d.. Patient currently meets hospital observation criteria. Likely can discharge tomorrow if blood pressure is reasonably controlled. Some of his symptoms of chest pain, visual changes, sleepiness and stopping breathing are more or less chronic. Exam Vital Signs (past 8 hours): - 01/21/20 09:00 01/21/20 10:00 01/21/20 11:00 Temperature 98.6 F 98.7 F 98.8 F Pulse Rate 100 H 105 H 102 H Respiratory Rate 19 28 H 20 Blood Pressure 158/76 H 133/71 144/72 H Pulse Oximetry 93 93 94 01/21/20 12:00 01/21/20 13:00 01/21/20 13:20 Temperature 98.8 F 98.5 F Pulse Rate 101 H 109 H 106 H Respiratory Rate 14 14 Blood Pressure 168/96 H 190/119 H 176/104 H Pulse Oximetry 93 97 01/21/20 14:00 01/21/20 15:00 01/21/20 15:43 Temperature 98.7 F 99.2 F Pulse Rate 122 H 117 H 105 H Respiratory Rate 20 19 19 Blood Pressure 169/76 H 164/93 H Pulse Oximetry 92 92 91 01/21/20 16:00 Temperature 98.4 F Pulse Rate 100 H Respiratory Rate 19 Blood Pressure 162/80 H Pulse Oximetry 91 Oxygen Delivery Method Room Air Oxygen Flow Rate 0 Objective Labs Result Diagrams: 01/21/20 04:15 01/21/20 04:15 Labs: Laboratory Results - last 24 hr 01/21/20 01/21/20 01/21/20 04:15 04:15 04:15 WBC 7.3 RBC 5.15 Hgb 15.3 Hct 45.3 MCV 88.0 MCH 29.7 MCHC 33.7 RDW 13.9 Plt Count 280 Neut % (Auto) 53.4 Lymph % (Auto) 34.3 [place] % (Auto) 8.3 Eos % (Auto) 2.2 Baso % (Auto) 1.8 Neut # (Auto) 3900 Lymph # (Auto) 2500 [place] # (Auto) 600 Eos # (Auto) 200 Baso # (Auto) 100 D-Dimer < 200 Sodium 141 Potassium 3.8 Chloride 106 Carbon Dioxide 28 BUN 15 Creatinine 1.18 Estimated GFR > 60.0 BUN/Creatinine Ratio 12.7 Glucose 90 Lactate Calcium 9.2 Magnesium 2.5 H Total Creatine Kinase 263 H CK-MB (CK-2) 0.99 CK-MB (CK-2) Rel Index 0.4 L Troponin I < 0.012 NT-Pro-B Natriuret Pep 44 Procalcitonin Nasal Screen MRSA (PCR) COVID-19 PCR 01/21/20 01/21/20 01/21/20 04:15 04:35 05:15 WBC RBC Hgb Hct MCV MCH MCHC RDW Plt Count Neut % (Auto) Lymph % (Auto) [place] % (Auto) Eos % (Auto) Baso % (Auto) Neut # (Auto) Lymph # (Auto) [place] # (Auto) Eos # (Auto) Baso # (Auto) D-Dimer Sodium Potassium Chloride Carbon Dioxide BUN Creatinine Estimated GFR BUN/Creatinine Ratio Glucose Lactate 1.6 Calcium Magnesium Total Creatine Kinase CK-MB (CK-2) CK-MB (CK-2) Rel Index Troponin I NT-Pro-B Natriuret Pep Procalcitonin < 0.05 Nasal Screen MRSA (PCR) COVID-19 PCR Negative 01/21/20 08:12 WBC RBC Hgb Hct MCV MCH MCHC RDW Plt Count Neut % (Auto) Lymph % (Auto) [place] % (Auto) Eos % (Auto) Baso % (Auto) Neut # (Auto) Lymph # (Auto) [place] # (Auto) Eos # (Auto) Baso # (Auto) D-Dimer Sodium Potassium Chloride Carbon Dioxide BUN Creatinine Estimated GFR BUN/Creatinine Ratio Glucose Lactate Calcium Magnesium Total Creatine Kinase CK-MB (CK-2) CK-MB (CK-2) Rel Index Troponin I NT-Pro-B Natriuret Pep Procalcitonin Nasal Screen MRSA (PCR) Negative for mrsa COVID-19 PCR Quality VTE Deep Vein Thrombosis/Pulmonary Embolism Present on Admission: No
[2020-01-21] MEDS: ACETAMINOPHEN 325 MG TABLET 650 MG PO (21:11)
--- NOTE | 2020-01-21 22:05 | PC.NURSE ---
Pt slept most of shift after daughter brought in his home CPap, pt states that he did not sleep last niight, is very tired and doesn't feel great. Pt allowed to sleep, dinner tray was set aside for pt to eat later, when he did eat, he consumed only 50% of meal, then proceeded to go back to sleep. Rouses when he is touched, states that he has no further needs at this time, just wants to get some sleep. BP 150/89 HR 82 after receiving 2100 labetalol and Tylenol for headache. Bed low and locked, call light within reach, will continue to monitor.
[2020-01-22 01:22] VITALS: BP 142/72; PULSE 73; RESP 20; TEMP 36.8; O2SAT 92
[2020-01-22 05:00] VITALS: BP 134/77; PULSE 66; RESP 19; TEMP 36.6; O2SAT 94
[2020-01-22 05:25] LABS: Add Manual Diff / Slide Review NO; Basophils Absolute Auto 0 /uL (0-100); Basophils Percent Auto 0.1 % (0-2); Eosinophils Absolute Auto 0 /uL (0-450); Hemoglobin 14.5 g/dL (13.5-17.5); Lymphocytes Absolute Auto 1800 /uL (1100-4500); Lymphocytes Percent Auto 16.8 % (25-40); Mean Corpuscular HGB Conc 34.5 % (30-36); Mean Corpuscular Hemoglobin 30.3 PG (26-34); Mean Corpuscular Volume 87.9 fL (80-100); Monocytes Absolute Auto 800 /uL (0-900); Monocytes Percent Auto 7.5 % (3-14); Neutrophils Absolute Auto 8000 /uL (1500-7000); Neutrophils Percent Auto 75.6 % (50-75); Platelet Count 264 X10^3/uL (150-400); Red Blood Cell Count 4.78 X10^6/uL (4.5-5.9); Red Cell Distribution Width 13.7 % (11.6-14.8); White Blood Cell Count 10.6 X10^3/uL (4.5-11.0)
[2020-01-22 05:29] LABS: BUN Creatinine Ratio 15.2 (6-22); Blood Urea Nitrogen 16 mg/dL (9-20); Calcium 8.9 mg/dL (8.4-10.2); Carbon Dioxide 25 mmol/L (22-32); Chloride 103 mmol/L (98-107); Estimated Glomerular Filt Rate > 60.0 mL/min (>60); Glucose 115 mg/dL (70-100); HEMOLYSIS < 15 (0-50); Potassium 3.9 mmol/L (3.4-5.1); Sodium 137 mmol/L (137-145)
[2020-01-22 08:00] VITALS: BP 152/84; PULSE 84; RESP 18; TEMP 36.6; O2SAT 92
[2020-01-22] MEDS: LABETALOL 100 MG TABLET 200 MG PO (08:50)
[2020-01-22] MEDS: LOSARTAN 50 MG TABLET PO (08:50)
--- NOTE | 2020-01-22 08:59 | PM.DS.1 ---
History of Present Illness History of Present Illness Date Patient Seen: 01/22/20 Time Patient Seen: 08:59 Chief complaint: cant sleep chest heavy chest pain Narrative: As per MARY NAN Escobar: Mr. Timmy Dorsey is a 44-year-old male who was a nonsmoker with a history significant for hypertension, central sleep apnea, GERD, morbid obesity, anxiety and depression, gout chronic back pain who presents to the ER per self with complaints of chest pressure and heaviness. The patient reports increasing chest pain and pressure oversew the last 3 days that has waxed and wane to some degree with his level of anxiety. He describes being under increased relationship stress as well as attempting to wean off his labetalol related to adverse side effects. The patient reports having associated headache and some breathlessness. He endorses visual changes of difficulty reading when his blood pressure is elevated. He has had nausea without vomiting a few days ago but none today. His discomfort is not worsened with activity. He has had no recent illness fevers or chills or known COVID-19 exposures. He reports no nasal congestion or sore throat. He has chest pressure as above that is nonradiating or pleuritic. He has had no cough or wheezing. He endorses epigastric discomfort and heartburn that will radiate through to the back that he has been self treating with omeprazole. He reports no difficulty urinating when he uses his CPAP will have nocturia 1-2 times nightly. Off CPAP he will have nocturia greater than 5 times nightly. He he denies changes in bowel habits. Upon arrival the patient is afebrile with temperature 97.8?, heart rate of 91, blood pressure of 241/121, respirations 28 oxygen saturation of 98% on room air. Chest x-ray is obtained which shows no acute cardiopulmonary findings. He has a 12 lead EKG done the finds sinus rhythm with a ventricular rate of 86, without ectopy or block, no ischemia, T-wave for ST changes or infarct. On laboratory analysis he has a white count of 7.3, hemoglobin of 15.3 and hematocrit of 45.3, platelets of 280. His electrolytes are within normal range and he has a BUN of 15 and creatinine 1.18. His nonfasting glucose is 90. His magnesium level is 2.5. A D-dimer is obtained which is less than 200 has a total CK of 268 with CK-MB of 0.99 for a index of 0.4. History phone is less than 0.012. BNP is 44. In the ER the patient received labetalol IV methylprednisolone with no significant improvement in blood pressure. He is started on nicardipine infusion which titrated down to a pressure of 160-170. Patient will be admitted to the medicine service to the ICU on a nicardipine drip for close monitoring. Discharge Providers Provider Date of admission: 01/21/20 05:55 Discharge Date: 01/22/20 Primary care physician: Salvador Bertrand MD Consults: 01/21/20 04:09 Consult to Respiratory Therapy Evaluate & Treat Comment: Physician Instructions: Evaluate and treat 01/21/20 06:21 Consult to Dietitian, Adult Routine Comment: Reason For Exam: Morbid obesity Consult to Discharge Planning Routine Comment: 01/21/20 06:49 Consult to Respiratory Therapy Evaluate & Treat Comment: Central sleep apnea, CPAP at home Physician Instructions: Evaluate and treat Discharge provider: Balaji Vanegas DO Summary Hospital Course Discharge Diagnosis: 1. Hypertensive urgency acute, present on admission, active. 2. Central sleep apnea, present on admission, stable. 3. Hyperlipidemia, chronic, stable. 4. Mood disorder, chronic, stable 5. Morbid obesity, chronic, stable Hospital Course: Mr. Timmy Dorsey is a 44-year-old male who was a nonsmoker with a history significant for hypertension, central sleep apnea, GERD, morbid obesity, anxiety and depression, gout chronic back pain who presented to the ER per self with complaints of chest pressure and heaviness. He did not have any evidence cardiac damage but was admitted given markedly elevated blood pressures to the 240 systolic for hypertensive urgency. He was initially started on nicardipine infusion which was quickly titrated off and started on oral therapy. His symptoms on presentation including headache and chest pain had improved. He has been diagnosed with central sleep apnea which is treated with CPAP. He has recently had to go up on his CPAP pressures and his sleep clinic was trying to obtain him a BiPAP machine, however this is been delayed due to the COVID-19 epidemic. He was started on losartan 50 mg daily, as well as labetalol 200 mg p.o. b.i.d. with improvement in his blood pressures. He was discharged home. He is looking to reestablish care with [facility], and referral was placed for further outpatient management of his hypertension. Exam Vital Signs (past 8 hours): - 01/22/20 01:22 01/22/20 05:00 01/22/20 08:00 Temperature 98.3 F 97.8 F 97.8 F Pulse Rate 73 66 84 Respiratory Rate 20 19 18 Blood Pressure 142/72 H 134/77 152/84 H Pulse Oximetry 92 94 92 Oxygen Delivery Method Room Air Oxygen Flow Rate 0 Narrative Exam Narrative: GENERAL APPEARANCE: Well developed, well nourished, in no acute distress. SKIN: Inspection of the skin reveals no rashes, ulcerations or petechiae. HEENT: Normocephalic atraumatic, extraocular muscles are intact, oropharynx is clear and mucous membranes are moist, neck is supple without adenopathy NECK: Supple and symmetric. There was no thyroid enlargement, and no tenderness, or masses were felt. CHEST: Normal AP diameter and normal contour without any kyphoscoliosis. LUNGS: Auscultation of the lungs revealed no wheezes, rhonchi, or rales. CARDIOVASCULAR: There was a regular rate and rhythm without any murmurs, gallops, rubs. Peripheral pulses were 2+ and symmetric. ABDOMEN: Soft and nontender with normal bowel sounds. No ascites was noted. MUSCULOSKELETAL: There was no tenderness or effusions noted. Muscle strength and tone were normal. EXTREMITIES: No cyanosis, clubbing or edema. NEUROLOGIC: Alert and oriented x 3. Normal affect. Gait was normal. Strength is +5/5 in the Upper Extremities and Lower Extremities Bilaterally. Sensation to touch was normal. Objective Labs Result Diagrams: 01/22/20 04:41 01/22/20 04:41 Labs: Laboratory Results - last 24 hr 01/21/20 01/22/20 01/22/20 08:12 04:41 04:41 WBC 10.6 RBC 4.78 Hgb 14.5 Hct 42.0 MCV 87.9 MCH 30.3 MCHC 34.5 RDW 13.7 Plt Count 264 Neut % (Auto) 75.6 H D Lymph % (Auto) 16.8 L [place] % (Auto) 7.5 Eos % (Auto) 0.0 L Baso % (Auto) 0.1 Neut # (Auto) 8000 H Lymph # (Auto) 1800 [place] # (Auto) 800 Eos # (Auto) 0 Baso # (Auto) 0 Sodium 137 Potassium 3.9 Chloride 103 Carbon Dioxide 25 BUN 16 Creatinine 1.05 Estimated GFR > 60.0 BUN/Creatinine Ratio 15.2 Glucose 115 H Calcium 8.9 Nasal Screen MRSA (PCR) Negative for mrsa Discharge Plan Discharge Plan Patient Disposition: Home Discharge comment: You were admitted to the hospital with elevated blood pressures. You are being discharged on some new blood pressure medications. Please follow up with the sleep medicine clinic and try and re-establish care with a primary care provider at [facility]. Discharge orders & Medications Prescriptions: New labetalol 200 mg tablet 200 mg PO BID 30 Days Qty: 60 RF: 0 losartan 50 mg tablet 50 mg PO DAILY 30 Days Qty: 30 RF: 0 Continued multivitamin tablet 1 tab PO DAILY RF: 0 lovastatin 40 mg tablet 40 mg PO BEDTIME Qty: 0 RF: 0 acetaminophen [Tylenol Extra Strength] 500 mg tablet 1,000 mg PO Q6H PRN (Reason: Pain (Scale Score 1-3)) RF: 0 diphenhydramine HCl [Benadryl Allergy] 25 mg tablet 25 mg PO BEDTIME PRN (Reason: sleep) RF: 0 (DME) ResMed AirSense 10 Auto CPAP Qty: 1 RF: 0 Discontinued labetalol 100 mg tablet 100 mg PO DAILY RF: 0 Follow up/Referrals: [facility] Bertrand [facility] DoctorMD DO [Physician] - 1 Month (Previously with Coty Alexandre, admitted for elevated BP, looking to re-establish care) Discharge Health Status Health Concerns: HTN Diet/Activity/Treatments Diet: Diet as Tolerated and Low-sodium Activity: As tolerated Visit Report/Discharge Packet Instructions: Essential Hypertension, Low-Sodium Diet, Labetalol, Losartan Discharge Data Primary Care Provider: Salvador Bertrand Attending Provider: Balaji Riojas Admit Date/Time: 01/21/20 05:55 Discharges patient from system. Discharge Date/Time: 01/22/20 10:00 Quality VTE Deep Vein Thrombosis/Pulmonary Embolism Present on Admission: No
--- NOTE | 2020-01-22 10:43 | DIET.PN ---
Dietary Progress Note Assessment: Mr. Dorsey is a 44-year-old male with a history of hypertension, central sleep apnea, GERD, morbid obesity, anxiety and depression, gout chronic back pain who presented to the ER with complaints of chest pressure and heaviness. The patient reported increasing chest pain and pressure over the last several days. He reports being under increased relationship stress. He reports visual changes as well as hallucinations of vampires in his room. He is understands the effects lack of sleep, anxiety, and poor nutrition has on his body. He reports 70lb weight loss about a year ago following the keto diet and walking 6 miles per day. He states he has gained it all back since his breakup in Jun. HT: 175.26cm WT: 127.4kg BMI: 41.5 MNA: 13 Lonnie: 22 Nutrition Diagnosis: Overweight/obesity r/t not ready for diet/lifestyle change, physical inactivity, anxiety/depression aeb BMI >normative standards (obese class III), estimated excessive energy intake, reported large amounts of sedentary activities, sleep apnea, HTN. Interventions: 1. Discussed healthy weight loss goals and ways to achieve. 2. Provided calorie and protein goal for safe weight loss and maintenance. 3. Discussed barriers to being motivated and achieving weight loss goals. 4. Provided information on dietary supplements to help relieve stress and anxiety including Ashwagandha and L-theanine. 5. Encouraged pt to include at least 30 min per day of mod exercise into daily routine. Diet Order: heart healthy EER: 2000 abdoul (weight loss); 125 g (1g/kg) Monitoring/Evaluations: weight, PO's
--- NOTE | 2020-01-29 11:31 | PC.NURSE ---
Late entry: NS stopped 01/20 0813 NS stopped 01/20 1406
== END 2020-01-22 10:00 | disposition home or self-care (01) ==
LOC: ED 04:17 → AC 05:56 → ICU 06:37
PROVIDERS: Admitting Provider Nurse Practitioner Adult Health; Emergency Provider Emergency Medicine; PCP Internal Medicine; Visit Provider Nurse Practitioner Adult Health
DX: I16.0 Hypertensive urgency (principal); R07.9 Chest pain, unspecified; G47.31 Primary central sleep apnea; I10 Essential (primary) hypertension; E78.5 Hyperlipidemia, unspecified; R51 Headache; E66.01 Morbid (severe) obesity due to excess calories; Z68.39 Body mass index [BMI] 39.0-39.9, adult; F41.9 Anxiety disorder, unspecified; F32.9 Major depressive disorder, single episode, unspecified; M1A.9XX0 Chronic gout, unspecified, without tophus (tophi); G89.29 Other chronic pain; M54.9 Dorsalgia, unspecified; Z11.59 Encounter for screening for other viral diseases
CPT/HCPCS: 36415; 71045; 80048; 81003; 82550; 82553; 83605; 83735; 83880; 84145; 84484; 85025; 85379; 87635; 87797; 93005; 94762; 96361; 96365; 96366; 96372; 96375; 99284; G0378; C9113; J1650; J2930

== ENCOUNTER 2020-01-26 22:53 | Emergency (ER) | payer OTHER, MEDICAID, SELFPAY ==
[2020-01-21 08:22] VITALS: BMI 41.4
[2020-01-26 23:00] VITALS: BP 185/104; PULSE 88; RESP 18; TEMP 36.6; O2SAT 97; BMI 39.9
--- NOTE | 2020-01-26 23:58 | ED.DENTAL ---
HPI - Dental/Oral General Chief complaint: Dental/Oral Stated complaint: tooth ache Time Seen by Provider: 01/26/20 23:32 Source: patient Mode of arrival: Ambulatory Limitations: no limitations History of Present Illness Complaint: tooth pain Location: Tooth # (3) Onset (ago): day(s) Duration: intermittent Severity: moderate Severity scale (1-10): 6 Relieving factors: NSAIDs (Minimally effective) Context: history of dental caries Treatment prior to arrival: other (Has seen in Emergency dentist recently for the same tooth was told he likely is going to need a root canal. Does have a prescription for penicillin related to that same visit for him to use should he have increased swelling or signs of infection) Related Data Home Medications Medication Instructions Recorded Confirmed multivitamin 1 tab PO DAILY 01/10/18 01/21/20 ResMed AirSense 10 Auto CPAP #1 ea 10/11/18 01/21/20 lovastatin 40 mg tablet 40 mg PO BEDTIME #0 tab 10/23/18 01/21/20 acetaminophen 500 mg tablet 1,000 mg PO Q6H PRN 02/01/19 01/21/20 diphenhydramine HCl 25 mg tablet 25 mg PO BEDTIME PRN 02/01/19 01/21/20 Previous Rx's Medication Instructions Recorded labetalol 200 mg PO BID 30 Days #60 tab 01/22/20 losartan 50 mg PO DAILY 30 Days #30 tab 01/22/20 Allergies Allergy/AdvReac Type Severity Reaction Status Date / Time Iodinated Contrast Media AdvReac Severe Swollen Verified 09/12/19 11:39 [Iodinated Contrast- Oral Tounge, and IV Dye] Hives iodine [IODINE] AdvReac Severe SWOLLEN Verified 09/12/19 11:39 THROAT, BURNING EYES AND HIVES ALL OVER BODY amlodipine AdvReac Intermediate Swelling Verified 09/12/19 11:39 in legs; weight gain lisinopril AdvReac Mild Itchy Verified 09/12/19 11:39 throat, itchy eyes SSRIs AdvReac Nausea, Uncoded 09/12/19 11:39 Fatigue, Sweating Review of Systems Review of Systems Narrative: No fevers No chest pain, cough, dyspnea No facial swelling or pointing abscess intra-abdominally No tongue swelling No headaches or dizziness Patient History Medical History Anxiety (Inactive ~2006) Chronic back pain (Inactive ~2009) Depression (Inactive ~2006) Eczema (Inactive ~2009) Essential (primary) hypertension (Chronic ~2012) Excessive daytime sleepiness (Chronic) Foot pain (Inactive ~2016) Gout (Inactive ~2015) Hemorrhoids (Inactive ~2013) Insomnia, unspecified (Chronic) Morbid obesity with body mass index (BMI) of 40.0 to 49.9 (Chronic) Obstructive sleep apnea of adult (Chronic) Scoliosis (Inactive) Surgical History Hx of removal of cyst (Inactive) Family History Father Heart disease Diabetes mellitus Hypertension Hyperlipidemia Mother Fibromyalgia Brother Diabetes mellitus Grandmother Heart attack Social History marital status: details: has [place] GF [place] household members: friend(s) lives independently: Yes caregiver/support person: No housing: house pets and animals: Yes education level: college occupational status: employed seatbelt use: always water heater temp set < 120 deg: Yes working smoke detector in home: Yes fire extinguisher in home: Yes carbon monox detector in home: Yes firearms in home: No Smoking Status: Current some day smoker second hand exposure: No alcohol intake: current substance use type: does not use during the past year weight has: increased > 10 lbs well-balanced diet: daily or most days daily servings fruits/ve-1 caffeine: Yes eating out: rarely or never Type(s) of exercise: walking, yoga and additional (strethching, light weights) frequency: 3-4 times per week duration: 45-60 minutes/day Smoking Status: Current some day smoker alcohol intake frequency: 0-2 drinks per day Substance Use Type: marijuana Exam Narrative Exam Narrative: General: Alert appropriate in mild distress secondary to pain with elevated blood pressure secondary to pain Respiratory: Able to speak in full sentences, no obvious respiratory distress Skin: No obvious rashes, warm and dry Neurologic: Grossly intact no obvious asymmetries or abnormalities Psych, appropriate insight and affect, poor eye contact but cooperative Dental: Tooth 3. With a filling in place appears to be the point of maximal tenderness without significant decay or erythema around. He has no fullness into the sinus and no trismus. Initial Vital Signs Initial Vital Signs: Vital Signs Temperature 97.8 F 01/26/20 23:00 Pulse Rate 88 01/26/20 23:00 Respiratory Rate 18 01/26/20 23:00 Blood Pressure 185/104 H 01/26/20 23:00 Pulse Oximetry 97 01/26/20 23:00 Course Orders Ordered: Discontinued Medications Ketorolac Tromethamine (Toradol) 30 mg IM NOW ONE Stop: 01/26/20 23:45 Oxycodone/Acetaminophen (Endocet 5/325 Prepack) 1 bottle MISC SEEINSTR ONE Stop: 01/26/20 23:45 Vital Signs Vital signs: Vital Signs - 8 hr 01/26/20 23:00 Temperature 97.8 F Pulse Rate 88 Respiratory Rate 18 Blood Pressure 185/104 H Pulse Oximetry 97 MDM - Dental/Oral Medical Records Attestation: I reviewed the patient's medical records. [facility] Narrative Medical decision making narrative: Dental infection without significant abscess. Has been told tooth will likely need a root canal. Given Toradol IM in the emergency department. He has a penicillin prescription from the Emergency dentist he saw most recently for this to and I have asked him to start and complete that prescription He will be given prepack of Percocet for severe pain to use over the next 1-2 days and then ibuprofen with Tylenol. He will get in touch with the dentist again after the Patient is safe for home discharge Discharge Plan Departure Patient Disposition: Home Clinical Impression: Dental infection Instructions: DI for Dental Pain Activity Restrictions/Additional Instructions: Thank you for coming in today Please do start and finish the penicillin prescription you have from the dentist for dental infections Using 400 mg of ibuprofen (2 [id number] pills) and 1 Tylenol every 6 hours can be very helpful in controlling pain. For severe pain please use 400 mg of ibuprofen and 1 Percocet every 6 hours. Please make sure you are continuing to take your hypertensive medications You will need to contact your dentist to schedule an appointment for definitive care for your dental infection I hope you feel better Prescriptions: No Action multivitamin tablet 1 tab PO DAILY RF: 0 lovastatin 40 mg tablet 40 mg PO BEDTIME Qty: 0 RF: 0 acetaminophen [Tylenol Extra Strength] 500 mg tablet 1,000 mg PO Q6H PRN (Reason: Pain (Scale Score 1-3)) RF: 0 diphenhydramine HCl [Benadryl Allergy] 25 mg tablet 25 mg PO BEDTIME PRN (Reason: sleep) RF: 0 labetalol 200 mg tablet 200 mg PO BID 30 Days Qty: 60 RF: 0 losartan 50 mg tablet 50 mg PO DAILY 30 Days Qty: 30 RF: 0 (DME) ResMed AirSense 10 Auto CPAP Qty: 1 RF: 0 Referrals: Salvador Bertrand MD [Primary Care Provider] -
[2020-01-27] MEDS: OXYCODONE/APAP 5/325 PREPACK 1 BOTTLE MISC (00:10)
[2020-01-27] MEDS: KETOROLAC 60 MG/2 ML VIAL 30 MG IM (00:10)
[2020-01-27 00:24] VITALS: BP 160/78; PULSE 73; RESP 18; O2SAT 98
== END 2020-01-27 00:25 | disposition home or self-care (01) ==
PROVIDERS: Emergency Provider Emergency Medicine; PCP Internal Medicine
DX: K04.7 Periapical abscess without sinus (principal)
CPT/HCPCS: 96372; 99283; J1885

== ENCOUNTER → 2020-02-27 16:54 | Outpatient (CLI) | payer OTHER, MEDICAID, SELFPAY ==
[2020-01-21 08:22] VITALS: BMI 41.4
[2020-02-27 18:00] LABS: Add Manual Diff / Slide Review NO; Basophils Absolute Auto 0 /uL (0-100); Basophils Percent Auto 0.3 % (0-2); Eosinophils Absolute Auto 100 /uL (0-450); Eosinophils Percent Auto 2.3 % (2-4); Hematocrit 44.4 % (41-53); Hemoglobin 15.6 g/dL (13.5-17.5); Lymphocytes Absolute Auto 1600 /uL (1100-4500); Lymphocytes Percent Auto 26.2 % (25-40); Mean Corpuscular HGB Conc 35.1 % (30-36); Mean Corpuscular Hemoglobin 30.8 PG (26-34); Mean Corpuscular Volume 87.6 fL (80-100); Monocytes Absolute Auto 500 /uL (0-900); Monocytes Percent Auto 8.3 % (3-14); Neutrophils Absolute Auto 3800 /uL (1500-7000); Neutrophils Percent Auto 62.9 % (50-75); Platelet Count 245 X10^3/uL (150-400); Red Blood Cell Count 5.07 X10^6/uL (4.5-5.9)
[2020-02-27 18:08] LABS: Alanine Aminotransferase 42 IU/L (<50); Albumin 4.5 g/dL (3.5-5.0); Albumin Globulin Ratio 1.5 (1.0-2.8); Alkaline Phosphatase 67 U/L (38-126); Aspartate Aminotransferase 40 IU/L (17-59); BUN Creatinine Ratio 11.5 (6-22); Bilirubin Total 0.5 mg/dL (0.2-1.3); Blood Urea Nitrogen 12 mg/dL (9-20); Calcium 9.5 mg/dL (8.4-10.2); Carbon Dioxide 26 mmol/L (22-32); Chloride 100 mmol/L (98-107); Estimated Glomerular Filt Rate > 60.0 mL/min (>60); Glucose 104 mg/dL (70-100); HEMOLYSIS < 15 (0-50); Sodium 136 mmol/L (137-145); Total Protein 7.5 g/dL (6.3-8.2)
[2020-02-27 18:27] LABS: Free T4, Direct Thyroxine 0.81 ng/dL (0.78-2.19)
[2020-02-27 18:41] LABS: Thyroid Stimulating Hormone 2.04 uIU/mL (0.47-4.68)
[2020-02-28 07:14] LABS: Triiodothyronine T3 Total 120 ng/dL (71-180)
== END ==
PROVIDERS: PCP Internal Medicine; Referring Provider Internal Medicine; Visit Provider Internal Medicine
DX: R53.83 Other fatigue (principal); I10 Essential (primary) hypertension
CPT/HCPCS: 36415; 80053; 84439; 84443; 84480; 85025

== ENCOUNTER 2020-03-24 03:28 | Observation (INO) | payer OTHER, MEDICAID, SELFPAY ==
[2020-01-21 08:22] VITALS: BMI 41.4
[2020-03-24] VITALS (36 sets, daily range): BP systolic 141–217; BP diastolic 77–143; PULSE 64–106; RESP 11–29; TEMP 36.2–36.8; O2SAT 91–100; BMI 39.9; BMI 42.5
[2020-03-24] MEDS: OXYMETAZOLINE NASAL SPRAY 30 ML 2 SPRAYS NASAL (03:44)
--- NOTE | 2020-03-24 03:59 | ED_ITS ---
HPI - Epistaxis General Chief complaint: Nasal Problem Stated complaint: woke up with bloody iris, won't stop bleeding Time Seen by Provider: 03/24/20 03:35 Source: patient Mode of arrival: Ambulatory History of Present Illness HPI Narrative: 44-year-old man with a history of hypertension inadequately controlled with recent hospital admission for hypertensive emergency, central sleep apnea reflux, morbid obesity anxiety and depression and recent weight change. He had initially lost 70 lb and was feeling much better, apparently there were changes with his central sleep apnea and his CPAP was no longer is effective and he gained back the 70 lb over approximately 5 months. He is currently working with his sleep doctor to get a new BiPAP machine. With his blood pressure medications he is working with Dr. Bertrand from the [facility]. He has had multiple difficulties with blood pressure medications. -All beta-blockers (carvedilol, atenolol, labetalol) have caused severe fatigue and been minimally effective. -Calcium channel blockers have caused increased edema. -Lisinopril caused a dry throat and a rash. -He recalls hydrochlorothiazide being ineffective and does not recall being on spironolactone (prior medical records indicate that he has been on that). -He does not recall ever being on clonidine Was getting ready for bed this evening and reported some mild emotional distress after writing a letter but did not feel that it was dramatic. He was feeling well as he headed to bed and then tasted salt in his mouth and then had fairly dramatic epistaxis from the right side and then significant flow and volume that was coming out both sides. On arrival in the emergency department his blood pressures 217/142, epistaxis is slowing. He describes mild headache but no chest pain or dyspnea. He states that he did take his 25 mg of losartan b.i.d. today. Of note, he was admitted with hypertensive crisis hypertensive encephalopathy that responded well to IV nicardipine after not responding to IV labetalol. He was discharged home with labetalol increased to 200 mg and losartan 25 b.i.d. continued and found that the labetalol was causing incapacitating levels of fatigue and weakness. Related Data Home Medications Medication Instructions Recorded Confirmed multivitamin 1 tab PO DAILY 01/10/18 01/21/20 ResMed AirSense 10 Auto CPAP #1 ea 10/11/18 01/21/20 lovastatin 40 mg tablet 40 mg PO BEDTIME #0 tab 10/23/18 01/21/20 acetaminophen 500 mg tablet 1,000 mg PO Q6H PRN 02/01/19 01/21/20 diphenhydramine HCl 25 mg tablet 25 mg PO BEDTIME PRN 02/01/19 01/21/20 Allergies Allergy/AdvReac Type Severity Reaction Status Date / Time Iodinated Contrast Media AdvReac Severe Swollen Verified 03/24/20 04:52 [Iodinated Contrast- Oral Tounge, and IV Dye] Hives iodine [IODINE] AdvReac Severe SWOLLEN Verified 03/24/20 04:52 THROAT, BURNING EYES AND HIVES ALL OVER BODY amlodipine AdvReac Intermediate Swelling Verified 03/24/20 04:52 in legs; weight gain lisinopril AdvReac Mild Itchy Verified 03/24/20 04:52 throat, itchy eyes SSRIs AdvReac Nausea, Uncoded 03/24/20 04:52 Fatigue, Sweating Review of Systems Review of Systems Narrative: Pertinent positive and negative findings as per HPI Remainder of review of systems is otherwise unremarkable for Constitutional: Fevers, chills, weakness ENT: No sore throat, neck pain, ear pain CV: Chest pain, palpitations, dyspnea on exertion Respiratory: Cough, wheeze, dyspnea GI: Nausea, vomiting, diarrhea, change in bowel habits, black or bloody stools : Dysuria, hematuria, flank pain MS: Muscle weakness, numbness, joint swelling or warmth Skin: Rashes, nonhealing lesions Neuro: Syncope, dizziness, tingling Heme: Easy bruising or bleeding Patient History Medical History Anxiety (Inactive ~2006) Chronic back pain (Inactive ~2009) Depression (Inactive ~2006) Eczema (Inactive ~2009) Essential (primary) hypertension (Chronic ~2012) Excessive daytime sleepiness (Chronic) Foot pain (Inactive ~2016) Gout (Inactive ~2015) Hemorrhoids (Inactive ~2013) Insomnia, unspecified (Chronic) Morbid obesity with body mass index (BMI) of 40.0 to 49.9 (Chronic) Obstructive sleep apnea of adult (Chronic) Scoliosis (Inactive) Surgical History Hx of removal of cyst (Inactive) Family History Father Heart disease Diabetes mellitus Hypertension Hyperlipidemia Mother Fibromyalgia Brother Diabetes mellitus Grandmother Heart attack Social History marital status: details: has [place] GF [place] household members: friend(s) lives independently: Yes caregiver/support person: No housing: house pets and animals: Yes education level: college occupational status: employed seatbelt use: always water heater temp set < 120 deg: Yes working smoke detector in home: Yes fire extinguisher in home: Yes carbon monox detector in home: Yes firearms in home: No Smoking Status: Current some day smoker second hand exposure: No alcohol intake: current substance use type: does not use during the past year weight has: increased > 10 lbs well-balanced diet: daily or most days daily servings fruits/ve-1 caffeine: Yes eating out: rarely or never Type(s) of exercise: walking, yoga and additional (strethching, light weights) frequency: 3-4 times per week duration: 45-60 minutes/day Smoking Status: Current some day smoker alcohol intake frequency: 0-2 drinks per day Substance Use Type: marijuana Exam Narrative Exam Narrative: General: Fatigued with active epistaxis responding to nose clips somewhat disheveled buts Able to give a complete and coherent history. Well-nourished well-developed HEENT: Moist mucous membranes, normal sclera with reactive pupils, nose clips were left in place and epistaxis is slowing nicely Neck: No JVD, supple Respiratory: Lungs are clear to auscultation, no wheezing no rales no rhonchi. Full and symmetrical air movement Cardiac: Regular rate and rhythm no murmurs no bruits Abdomen: Soft nontender good bowel tones, no flank pain Skin: Warm and dry, no rashes Neurologic: Grossly neurologically intact with no obvious asymmetries or abnormalities Extremities: No trauma, well perfused Psych: Cooperative, appropriate insight and affect Initial Vital Signs Initial Vital Signs: Vital Signs Pulse Rate 95 H 03/24/20 03:38 Respiratory Rate 20 03/24/20 03:38 Blood Pressure 217/142 H 03/24/20 03:38 Pulse Oximetry 100 03/24/20 03:38 Course Orders Ordered: ED Orders 03/24/20 04:19 XR chest 1V Stat Urinalysis and Microscopic Stat 03/24/20 04:28 EKG-12 Lead Stat 03/24/20 04:42 Complete Blood Count AUTO DIFF Stat Comprehensive Metabolic Panel Stat NT-proBNP (BNP-Adult 18+) Stat Troponin I Stat Nicardipine HCl 25 mg/ Sodium (Chloride) 250 mls @ 50 mls/hr IV TITRATE MANAS; Protocol Last Admin: 03/24/20 04:57 Dose: 5 mg/hr, 50 mls/hr Documented by: REGGIE Discontinued Medications Lorazepam (Ativan) 0.5 mg IV NOW ONE Stop: 03/24/20 04:20 Last Admin: 03/24/20 04:57 Dose: 0.5 mg Documented by: REGGIE Oxymetazoline HCl (Afrin) 2 sprays NASAL NOW ONE Stop: 03/24/20 03:36 Last Admin: 03/24/20 03:44 Dose: 2 sprays Documented by: LLOYD Vital Signs Vital signs: Vital Signs - 8 hr 03/24/20 03:38 03/24/20 04:27 03/24/20 04:28 Pulse Rate 95 H 80 81 Respiratory Rate 20 26 H 14 Blood Pressure 217/142 H Pulse Oximetry 100 03/24/20 04:35 03/24/20 04:50 03/24/20 04:52 Pulse Rate 84 78 Respiratory Rate 19 Blood Pressure 188/107 H 214/143 H Pulse Oximetry 95 95 03/24/20 04:54 03/24/20 04:55 03/24/20 05:00 Pulse Rate 78 79 76 Respiratory Rate 17 17 21 Blood Pressure 188/91 H Pulse Oximetry 94 94 94 03/24/20 05:01 03/24/20 05:05 03/24/20 05:10 Pulse Rate 74 74 74 Respiratory Rate 21 22 19 Blood Pressure 192/111 H 197/103 H 170/103 H Pulse Oximetry 93 92 93 03/24/20 05:15 Pulse Rate 71 Respiratory Rate 23 Blood Pressure 168/99 H Pulse Oximetry 92 MDM - Epistaxis Medical Records Attestation: I reviewed the patient's medical records. Lab Data Attestation: I reviewed the patient's lab results. Result diagrams: 03/24/20 04:42 07/20/20 04:42 Labs: Lab Results 03/24/20 03/24/20 Range/Units 04:42 04:42 WBC 7.3 (4.5-11.0) X10^3/uL RBC 4.89 (4.5-5.9) X10^6/uL Hgb 14.4 (13.5-17.5) g/dL Hct 43.1 (41-53) % MCV 88.1 (80-100) fL MCH 29.4 (26-34) PG MCHC 33.4 (30-36) % RDW 14.1 (11.6-14.8) % Plt Count 258 (150-400) X10^3/uL Neut % (Auto) 59.1 (50-75) % Lymph % (Auto) 29.4 (25-40) % [place] % (Auto) 8.8 (3-14) % Eos % (Auto) 2.1 (2-4) % Baso % (Auto) 0.6 (0-2) % Neut # (Auto) 4300 (0199-8430) /uL Lymph # (Auto) 2200 (4208-6447) /uL [place] # (Auto) 600 (0-900) /uL Eos # (Auto) 200 (0-450) /uL Baso # (Auto) 0 (0-100) /uL Sodium 139 (137-145) mmol/L Potassium 3.6 (3.4-5.1) mmol/L Chloride 105 (98-107) mmol/L Carbon Dioxide 26 (22-32) mmol/L BUN 13 (9-20) mg/dL Creatinine 0.92 (0.66-1.25) mg/dL Estimated GFR > 60.0 (>60) mL/min BUN/Creatinine Ratio 14.1 (6-22) Glucose 113 H (70-100) mg/dL Calcium 9.2 (8.4-10.2) mg/dL Total Bilirubin 0.3 (0.2-1.3) mg/dL AST 28 (17-59) IU/L ALT 38 (<50) IU/L Alkaline Phosphatase 62 (38-126) U/L Total Protein 7.4 (6.3-8.2) g/dL Albumin 4.3 (3.5-5.0) g/dL Globulin 3.1 (1.7-4.1) g/dL Albumin/Globulin Ratio 1.4 (1.0-2.8) Imaging Data Chest x-ray: Attestation: I personally reviewed and interpreted this imaging study as follows: My Impression: Poor inspiratory effort, mild cephalization, no acute infiltrates or pneumothorax, no significant cardiomegaly ECG Data Attestation: I personally reviewed and interpreted this ECG as follows: Interpretation: Sinus rhythm at a rate of 82 Normal axis and intervals No ischemic changes MDM Narrative Medical decision making narrative: 44-year-old gentleman with a nose bleed presumably secondary to significant hypertension. Admission to the hospital about 2 months ago with a hypertensive emergency. Adverse reaction to multiple classes of medications including beta-blockers which in IV form increased his blood pressure and in oral form make him so sleepy and weak that he is unable to function. He started on a nicardipine drip and blood pressure is slowly wo rking its way down. He is also given a small dose of Ativan because I think there was a emotional component to would ever caused his blood pressure to spike high enough to cause spontaneous nosebleed this evening. Labs are reassuring there is no evidence of acute coronary syndrome, congestive heart failure or stroke. He does have a history of central sleep apnea that at this point is inadequately controlled with his current CPAP. His sleep difficulties have compound did his metabolism and he has gained back 70 lb in the last 5 months. Will need to be admitted to get the blood pressure controlled switch over to affective oral medications and hopefully prevent recurrent spontaneous nose b karen due to severe hypertension and avoid acute coronary syndrome or stroke event. Care is reviewed with Cyril Riojas, hospitalist and admission except. Discharge Plan Departure Patient Disposition: Admitted as Observation Clinical Impression: Epistaxis, Hypertensive emergency Referrals: Salvador Bertrand MD [Primary Care Provider] -
--- NOTE | 2020-03-24 04:19 | DI.RAD.S_ITS ---
PROCEDURE: XR CHEST 1V INDICATIONS: Chest pain TECHNIQUE: One view of the chest was acquired. COMPARISON: [facility], CR, XR CHEST 1V, 01/21/2020, 4:52. FINDINGS: Surgical changes and devices: None. Lungs and pleura: Lungs are clear. No pleural effusions or pneumothorax. Mediastinum: Mediastinal contours appear normal. Heart size is normal. Bones and chest wall: No suspicious bony lesions. Overlying soft tissues appear unremarkable. IMPRESSION: No acute cardiopulmonary disease process. Dictated by: Lakshmi Rhodes MD, PhD on 03/24/2020 at 9:01 Approved by: Lakshmi Rhodes MD, PhD on 03/24/2020 at 9:01
[2020-03-24] MEDS: LORazepam 2 MG/ML INJ 0.5 MG IV (04:57)
[2020-03-24] MEDS: NICARDIPINE 25 MG in SODIUM CHLORIDE 0.9% 240 ML 50 ML IV (04:57)
[2020-03-24 04:58] LABS: Add Manual Diff / Slide Review NO; Basophils Absolute Auto 0 /uL (0-100); Basophils Percent Auto 0.6 % (0-2); Eosinophils Absolute Auto 200 /uL (0-450); Eosinophils Percent Auto 2.1 % (2-4); Hematocrit 43.1 % (41-53); Hemoglobin 14.4 g/dL (13.5-17.5); Lymphocytes Absolute Auto 2200 /uL (1100-4500); Lymphocytes Percent Auto 29.4 % (25-40); Mean Corpuscular HGB Conc 33.4 % (30-36); Mean Corpuscular Hemoglobin 29.4 PG (26-34); Mean Corpuscular Volume 88.1 fL (80-100); Monocytes Absolute Auto 600 /uL (0-900); Monocytes Percent Auto 8.8 % (3-14); Neutrophils Absolute Auto 4300 /uL (1500-7000); Neutrophils Percent Auto 59.1 % (50-75); Platelet Count 258 X10^3/uL (150-400); Red Blood Cell Count 4.89 X10^6/uL (4.5-5.9); Red Cell Distribution Width 14.1 % (11.6-14.8); White Blood Cell Count 7.3 X10^3/uL (4.5-11.0)
[2020-03-24 05:05] LABS: Alanine Aminotransferase 38 IU/L (<50); Albumin 4.3 g/dL (3.5-5.0); Albumin Globulin Ratio 1.4 (1.0-2.8); Alkaline Phosphatase 62 U/L (38-126); Aspartate Aminotransferase 28 IU/L (17-59); BUN Creatinine Ratio 14.1 (6-22); Bilirubin Total 0.3 mg/dL (0.2-1.3); Blood Urea Nitrogen 13 mg/dL (9-20); Calcium 9.2 mg/dL (8.4-10.2); Carbon Dioxide 26 mmol/L (22-32); Chloride 105 mmol/L (98-107); Estimated Glomerular Filt Rate > 60.0 mL/min (>60); Globulin 3.1 g/dL (1.7-4.1); Glucose 113 mg/dL (70-100); HEMOLYSIS < 15 (0-50); Potassium 3.6 mmol/L (3.4-5.1); Sodium 139 mmol/L (137-145); Total Protein 7.4 g/dL (6.3-8.2)
[2020-03-24 05:17] LABS: NT-proBNP (BNP-Adult 18+) 46 pg/mL (<125); Troponin I < 0.012 ng/mL (0.01-0.034)
--- NOTE | 2020-03-24 05:20 | PC.NURSE ---
patient placed on 2L of O2 by AR because while he is resting his O2 drops down to 88% on room air. provider notified and no new orders at this time.
--- NOTE | 2020-03-24 06:00 | PM.HP.1 ---
History of Present Illness History of Present Illness Date Patient Seen: 03/24/20 Time Patient Seen: 06:30 Chief complaint: woke up with bloody iris, won't stop bleeding Narrative: Mr. Timmy Dorsey is a 44-year-old male who was a nonsmoker with a history significant for hypertension, central sleep apnea, GERD, morbid obesity, anxiety and depression, gout chronic back pain who presents to the ER per self with complaints of epistaxis. The patient states he was feeling well most the evening and then developed a headache that he describes as ?like a hangover?. 1 hour later he reports being emotional over a letter he was riding and developed epistaxis initially beginning out of the right nare progressing to both sides. It is the patient describes significant blood loss related to the epistaxis and presented to the ER for treatment. Reports no other antecedent symptoms with no recent illness, fevers or chills or known COVID-19 exposure. He states he has been taking his losartan twice daily and describes developing headache approximately 1 hour following taking the medication. His primary care provider discontinued his labetalol as he is intolerant of beta-blockers feeling weakness and tiredness, calcium channel blockers related to edema and Santos inhibitors. Patient has had no recent from complaints of fevers or chills and no recent COVID-19 exposures. He denies complaints of chest pain no palpitations and no complaints of shortness of breath cough or wheezing. He reports no abdominal pain nausea vomiting, diarrhea or constipation. Reports no urinary symptoms. He has been increasing his activity and walked 3 miles today. Upon arrival to the ER patient the patient is afebrile with a temperature of 97.3?, heart rate 95, blood pressure 217/142, respiratory rate of 20 saturating 100% on room air. A chest x-ray is obtained and is unremarkable. Twelve lead EKG finds a sinus rhythm rate of 82 without ectopy or block, QTC i 464 milliseconds. On laboratory analysis his white count of 7.3, hemoglobin 14.4, hematocrit of 43.1 and platelets 258. His electrolytes are within normal limits and his BUN is 13 with a creatinine of 0.92. Nonfasting glucose is 113. His liver functions are all within normal range and his troponin is negative at less than 0.012. Patient's hypertension is treated with nicardipine due to previous lack of efficacy of labetalol. Patient also receives Ativan and oxymetazoline for epistaxis control. The patient is admitted to the intensive care unit and hospitalist service for hypertensive urgency on a nicardipine drip. Patient History Medical History Anxiety (Inactive ~2006) Chronic back pain (Inactive ~2009) Depression (Inactive ~2006) Eczema (Inactive ~2009) Essential (primary) hypertension (Chronic ~2012) Excessive daytime sleepiness (Chronic) Foot pain (Inactive ~2016) Gout (Inactive ~2015) Hemorrhoids (Inactive ~2013) Insomnia, unspecified (Chronic) Morbid obesity with body mass index (BMI) of 40.0 to 49.9 (Chronic) Obstructive sleep apnea of adult (Chronic) Scoliosis (Inactive) Surgical History Hx of removal of cyst (Inactive) Family & Social History Family History Father Heart disease Diabetes mellitus Hypertension Hyperlipidemia Mother Fibromyalgia Brother Diabetes mellitus Grandmother Heart attack Social History: household members friend(s) lives independently Yes caregiver/support person No Safety & Behavioral: Feels Safe in Current Yes Environment Been Physically Hurt or No Threatened By a Person Tobacco & Substance use: Tobacco type cannabis/marijuana Smoking Status Current some day smoker alcohol intake current alcohol intake frequency 0-2 drinks per day Substance Use Type marijuana Meds Home Medications and Allergies Home Medications Medication Instructions Recorded Confirmed Type multivitamin 1 tab PO DAILY 01/10/18 01/21/20 History ResMed AirSense 10 Auto CPAP #1 ea 10/11/18 01/21/20 History lovastatin 40 mg tablet 40 mg PO BEDTIME #0 tab 10/23/18 01/21/20 History acetaminophen 500 mg tablet 1,000 mg PO Q6H PRN 02/01/19 01/21/20 History diphenhydramine HCl 25 mg tablet 25 mg PO BEDTIME PRN 02/01/19 01/21/20 History Allergies Allergy/AdvReac Type Severity Reaction Status Date / Time Iodinated Contrast Media AdvReac Severe Swollen Verified 03/24/20 04:52 [Iodinated Contrast- Oral Tounge, and IV Dye] Hives iodine [IODINE] AdvReac Severe SWOLLEN Verified 03/24/20 04:52 THROAT, BURNING EYES AND HIVES ALL OVER BODY amlodipine AdvReac Intermediate Swelling Verified 03/24/20 04:52 in legs; weight gain lisinopril AdvReac Mild Itchy Verified 03/24/20 04:52 throat, itchy eyes SSRIs AdvReac Nausea, Uncoded 03/24/20 04:52 Fatigue, Sweating Review of Systems Review of Systems ROS: Yes All systems reviewed with the patient and are negative except as otherwise documented Exam Vital Signs (past 8 hours): - 03/24/20 03:38 03/24/20 04:27 03/24/20 04:28 Pulse Rate 95 H 80 81 Respiratory Rate 20 26 H 14 Blood Pressure 217/142 H Pulse Oximetry 100 03/24/20 04:35 03/24/20 04:50 03/24/20 04:52 Pulse Rate 84 78 Respiratory Rate 19 Blood Pressure 188/107 H 214/143 H Pulse Oximetry 95 95 03/24/20 04:54 03/24/20 04:55 03/24/20 05:00 Pulse Rate 78 79 76 Respiratory Rate 17 17 21 Blood Pressure 188/91 H Pulse Oximetry 94 94 94 03/24/20 05:01 03/24/20 05:05 03/24/20 05:10 Pulse Rate 74 74 74 Respiratory Rate 21 22 19 Blood Pressure 192/111 H 197/103 H 170/103 H Pulse Oximetry 93 92 93 03/24/20 05:15 03/24/20 05:20 03/24/20 05:25 Pulse Rate 71 73 80 Respiratory Rate 23 22 25 H Blood Pressure 168/99 H 166/90 H 172/87 H Pulse Oximetry 92 93 93 03/24/20 05:30 03/24/20 05:35 03/24/20 05:40 Pulse Rate 78 77 76 Respiratory Rate 25 H 21 19 Blood Pressure 163/84 H 168/89 H 158/85 H Pulse Oximetry 93 95 95 03/24/20 05:45 Pulse Rate 77 Respiratory Rate 24 Blood Pressure 165/92 H Pulse Oximetry 94 Oxygen Delivery Method Nasal Cannula Oxygen Flow Rate 2 Narrative Exam Narrative: GENERAL APPEARANCE: well developed, morbidly obese male, BMI 42.5, sitting semi recumbent in no acute distress. HEENT: Normocephalic, PERRLA, conjunctiva clear, EOMs intact without nystagmus, dried blood bilateral nares with no active bleeding, mucous membranes are moist and pink. NECK/THYROID: neck supple, no JVD, no thyromegaly, trachea midline. LYMPH NODES: no cervical or supraclavicular lymphadenopathy. SKIN: [place], warm and dry, no visible lesions, rashes, ulcerations or petechiae. HEART: regular rate and rhythm, S1-S2, no murmur, no rubs or gallops, brisk capillary refill, trace bilateral lower extremity edema LUNGS: clear to auscultation bilaterally, no coarseness crackles or wheezing, no cough present CHEST: Symmetrical movement, no accessory muscle use, good tidal volume. ABDOMEN: Soft, round, no epigastric or abdominal tenderness, no organomegaly, no flank or suprapubic tenderness, active bowel tones. EXTREMITIES: moves all extremities, strength is 5/5 and symmetrical, no deformities or joint effusions. NEUROLOGIC: AAO x4, no focal neurologic deficits, cranial nerves II-XII grossly intact, sensation intact to light touch, hearing grossly normal to speech. PSYCH: Flat affect, fair eye contact, cooperative, stable behavior. Objective Labs Result Diagrams: 03/24/20 04:42 03/24/20 04:42 Labs: Laboratory Results - last 24 hr 03/24/20 03/24/20 04:42 04:42 WBC 7.3 RBC 4.89 Hgb 14.4 Hct 43.1 MCV 88.1 MCH 29.4 MCHC 33.4 RDW 14.1 Plt Count 258 Neut % (Auto) 59.1 Lymph % (Auto) 29.4 [place] % (Auto) 8.8 Eos % (Auto) 2.1 Baso % (Auto) 0.6 Neut # (Auto) 4300 Lymph # (Auto) 2200 [place] # (Auto) 600 Eos # (Auto) 200 Baso # (Auto) 0 Sodium 139 Potassium 3.6 Chloride 105 Carbon Dioxide 26 BUN 13 Creatinine 0.92 Estimated GFR > 60.0 BUN/Creatinine Ratio 14.1 Glucose 113 H Calcium 9.2 Total Bilirubin 0.3 AST 28 ALT 38 Alkaline Phosphatase 62 Troponin I < 0.012 NT-Pro-B Natriuret Pep 46 Total Protein 7.4 Albumin 4.3 Globulin 3.1 Albumin/Globulin Ratio 1.4 Assessment & Plan Assessment & Plan narrative: This is a 44-year-old male patient presents to the ER with chest pressure and heaviness for 3 days and hypertensive urgency. 1. Hypertensive urgency acute, present on admission, active. -the patient with an abrupt onset of epistaxis and is found to be severely hypertensive upon arrival following becoming emotionally upset earlier tonight. -the patient was admitted from 01/21/20 to 01/22/2020 with similar hypertensive episode. -previously patient treated with labetalol without effect and was started on nicardipine effusion with good pressure control. The patient was discharged from the hospital on labetalol and losartan. Patient is intolerant of most antihypertensives due to side effects including beta blockers, calcium channel blockers and ACEI's. -on admission to the ER the patient has blood pressure of 217/142. Troponin remains negative at less than 0.012. -EKG is sinus rhythm at a rate of 82 without ectopy or block, QTC slightly prolonged at 464 milliseconds. Tracing essentially unchanged from prior EKG. -started on a nicardipine drip which is titrated to a pressure of 170s. 2. Epistaxis, present on admission, resolved -patient with epistaxis starting in the right knee are progressing to bilateral nares. -bleeding manage with decrease in blood pressure and use of oxymetazoline spray. -the patient reports not swallowing blood and without complaints of nausea vomiting. -will monitor for recurrence of control blood pressure. 3. Central sleep apnea, present on admission, stable. -patient is followed by the sleep clinic and completed a BiPAP trial good results and 100% sleep efficacy. -recommend nasal BILEVEL PAP at an inspiratory pressure of 15 cwp, an expiratory pressure of 11 cwp with a Respironics [place] [facility] and in-line heated humidification. -respiratory therapy to consult evaluate and treat -order BiPAP 4. Hyperlipidemia, chronic, stable. Will continue the patient's home regimen of lovastatin 40 mg daily 5. Mood disorder, chronic, stable -the patient reports last seen depression and interacting with family and friends online. He has been increasing his physical activity. -patient is currently taking no anti anxiety or depression medications. He has had adverse reactions to SSRIs. -the patient had previously been receiving counseling that was terminated due to pandemic and does not feel the need for starting counseling again. 6. Morbid obesity, chronic, stable -patient lost 70 lb on a keto diet and has since regained the weight secondary to his central sleep apnea above. -current BMI is 42.5. -requested dietary consult. VTE prophylaxis: Bilateral SCDs, chemical prophylaxis deferred due to epistaxis. IV fluid: TKO Diet: Heart healthy low-sodium Code status: FULL CODE, the patient designates his ex-, Radha Medrano, to be his surrogate decision maker. The patient is admitted as an inpatient to the ICU on nicardipine infusion for hypertensive urgency requiring close monitoring and titration. Critical care time: 40 min with greater than 50% of the time spent in direct [id number] with the patient. COVID-19 COVID-19 status: Negative Result date/Date tested (Pos, Neg/Pending): 03/24/20 Scores GCS [place] coma scale eye opening: Spontaneous [place] coma scale verbal response: Orientated [place] coma scale motor response: Obey commands [place] coma scale total score: 15
[2020-03-24 06:14] LABS: Magnesium 2.4 mg/dL (1.6-2.3)
[2020-03-24 06:26] LABS: COVID19 -Nasal RAPID Negative (Negative)
[2020-03-24] MEDS: LOSARTAN 50 MG TABLET PO (09:04)
[2020-03-24 09:24] LABS: Bacteria Urine None Seen; RBC Urine None Seen (0-5/HPF); WBC Urine None Seen (0-5/HPF)
[2020-03-24 09:25] LABS: Appearance Urine UA CLEAR; Bilirubin Urine UA NEGATIVE (NEGATIVE); Color Urine UA YELLOW; Glucose Urine UA NEGATIVE (Negative); Ketones Urine UA NEGATIVE (NEGATIVE); Leukocyte Esterase Urine UA NEGATIVE (NEGATIVE); Nitrite Urine UA NEGATIVE (Negative); Occult Blood Urine UA NEGATIVE (Negative); Protein Urine UA NEGATIVE (Negative); Specific Gravity Urine UA 1.015 (1.000-1.035); Urobilinogen Urine UA 0.2 E.U./dL (0.2)
[2020-03-24 09:27] LABS: Culture Indicated Urine Cult Not Indicated; Urine Comments Microscopic Normal
[2020-03-24] MEDS: AMLODIPINE 5 MG TABLET 10 MG PO (09:37)
--- NOTE | 2020-03-24 10:13 | PC.NURSE ---
Addendum entered by Rosy Dickerson R.N. 03/24/20 12:49: pt discharged to home for which he was thankful- new rx sent electronically to [facility] and thorough review of new rx and new doses- answered all questions to his satisfaction and discharged from hospital at this time Original Note: pt admitted at 0625 this am with c/o of epistaxis which has since stopped ( in ed) but has persistant hypertension- arrived to room on nicardipine gtt 5mg ( 50 mls) per - able to turn that gtt off and administer 50mg losartan and 10mg amlodipine and present hr 81 bpm and b/p steadily improving- will monitor closely and plan is to dc to home later this date
--- NOTE | 2020-03-24 11:20 | CM.DANOTE ---
Patient is a 44 year old male who was admitted on 03/24/20 for Nose Bleed, Hypertensive. PCP: Dr. Salvador Bertrand. Payer: confirmed: [facility] Health Options/Medicaid. Patient came to the hospital via private vehicle secondary to having some chest discomfort. Patient has history of anxiety, PTSD, as well as sleep apnea, according to patient. He holds current diagnosis of HTN. Pt was recently admitted to [facility] for similar in January 2020 and was able to d/c home outpt follow up. Met with patient in his room. He was laying in bed. Alert and oriented. He resides in a single family home with his room mates. His ex Radha and Dtr live locally. Patient mentioned that he has sleep apnea, and uses a CPAP at home. He feels that he is tired and run down because of the settings on his machine. He stated that he has not been able to go to the sleep clinic due to COVID previously but not has an appointment set up for follow up. Pt was previously seeing a counselor here in town that he found helpful but no longer needed at this time. SW follow up with pt on his feelings of exhaustion and flat affect in regards to further MH resources but pt denies any feelings of depression or even stress and feels strongly that his symptoms are due to not having the right oxygen levels at night with his CPAP and declines the need for MH support at this time. 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 Pt was established with Dr. Bertrand at the [facility] but recently received a letter stating their clinic would be closing permanently and pt requested list of local clinics that accept [facility] HO. SW printed list off [facility] website that includes [facility], [facility], and [facility] as pt was hoping to be able to walk to his PCP office and these are all close to his home and SW also provided [facility] as a backup. Pt comfortable with calling to establish with PCP after discharge. Per MD, pt medically stable to d/c home today with follow up with establishing new PCP and Sleep Study for ongoing CPAP needs. Plan: SW to follow for pt d/c home today via own private vehicle in the parking lot and follow up outpt. No further SW needs at this time. TIFFANIE Fernandes Discharge Planning/Care Management CM Discharge Assessment Start: 03/24/20 11:17 Freq: Status: Active Protocol: Document 03/24/20 11:17 BF (Rec: 03/24/20 11:19 BF [id number]) Discharge Planning Assessment Assigned Motor Vehicle Technician TIFFANIE Gruber DPOA/Assigned Designee Name none Advance Directives? No Advance Directives on File No History Provided By Patient,Medical Record Has Patient been admitted in last 30 No days? Comment Last discharged in January 2020 to home for similar medical concerns Prior Living Arrangements House Household Members friend(s) Type of transporation used prior to Drives own vehicle admit Comment Independent with ADL's at baseline Independent with ADL's Yes Is patient alert and oriented? Yes Caregiver for Another No Community Services used prior to Oxygen Therapy,Respiratory admission: Therapy DME Already Rented / Owned Oxygen Barriers to Discharge No Discharge Plan Home Community Services Respiratory Therapy Transportation Arrangement Self, vehicle parked in ED parking lot Referrals Initiated None needed Additional Comment Pt to have follow up with Sleep Study after discharge Whiteboard Updated in Patient Room with Yes name and ext. # of Motor Vehicle Technician Review Status In Process Please Provide Date Initial DC 03/24/20 Assessment Was Performed Next Review Type Continued Stay Review
[2020-04-03 12:09] LABS: Metanephrine,Plasma <10.0 pg/mL (0.0-88.0)
== END 2020-03-24 12:51 | disposition home or self-care (01) ==
LOC: ED 04:20 → AC 05:30 → ICU 06:29
PROVIDERS: Admitting Provider Nurse Practitioner Adult Health; Emergency Provider Emergency Medicine; PCP Internal Medicine; Visit Provider Nurse Practitioner Adult Health
DX: I16.0 Hypertensive urgency (principal); R04.0 Epistaxis; I10 Essential (primary) hypertension; E66.01 Morbid (severe) obesity due to excess calories; Z68.41 Body mass index [BMI] 40.0-44.9, adult; E78.5 Hyperlipidemia, unspecified; G47.31 Primary central sleep apnea; Z11.59 Encounter for screening for other viral diseases; F39 Unspecified mood [affective] disorder
CPT/HCPCS: 36415; 71045; 80053; 81001; 83735; 83835; 83880; 84484; 85025; 87635; 93005; 96365; 96366; 96375; 99284; G0378; J2060

== ENCOUNTER → 2020-04-11 11:52 | Outpatient (CLI) | payer OTHER, MEDICAID, SELFPAY ==
[2020-03-24 07:00] VITALS: BMI 42.5
[2020-04-11 12:38] LABS: Cholesterol 263 mg/dL (140-199); HDL Cholesterol 41 mg/dL (40-60); LDL Cholesterol Calculated 154 mg/dL (<100); Triglycerides 340 mg/dL (35-150)
== END ==
PROVIDERS: PCP Registered Nurse; Referring Provider Registered Nurse; Visit Provider Registered Nurse
DX: E78.5 Hyperlipidemia, unspecified (principal)
CPT/HCPCS: 36415; 80061

== ENCOUNTER → 2020-04-15 17:34 | Outpatient (CLI) | payer OTHER, MEDICAID, SELFPAY ==
[2020-03-24 07:00] VITALS: BMI 42.5
[2020-04-15 18:06] LABS: BUN Creatinine Ratio 16.8 (6-22); Blood Urea Nitrogen 20 mg/dL (9-20); Carbon Dioxide 29 mmol/L (22-32); Chloride 100 mmol/L (98-107); Estimated Glomerular Filt Rate > 60.0 mL/min (>60); Glucose 103 mg/dL (70-100); HEMOLYSIS < 15 (0-50); Potassium 4.1 mmol/L (3.4-5.1); Sodium 137 mmol/L (137-145)
== END ==
PROVIDERS: PCP Registered Nurse; Referring Provider Registered Nurse Diabetes Educator; Visit Provider Registered Nurse Diabetes Educator
DX: R60.9 Edema, unspecified (principal)
CPT/HCPCS: 36415; 80048

== ENCOUNTER → 2021-03-02 11:46 | Outpatient (CLI) | payer OTHER, MEDICAID, SELFPAY ==
[2020-05-20 14:46] VITALS: BMI 42.5
[2021-03-02 12:50] LABS: Alanine Aminotransferase 58 IU/L (<50); Albumin 4.1 g/dL (3.5-5.0); Albumin Globulin Ratio 1.2 (1.0-2.8); Alkaline Phosphatase 69 U/L (38-126); Aspartate Aminotransferase 41 IU/L (17-59); BUN Creatinine Ratio 10.7 (6-22); Bilirubin Total 0.5 mg/dL (0.2-1.3); Blood Urea Nitrogen 12 mg/dL (9-20); Calcium 8.8 mg/dL (8.4-10.2); Carbon Dioxide 25 mmol/L (22-32); Chloride 105 mmol/L (98-107); Cholesterol 314 mg/dL (140-199); Estimated Glomerular Filt Rate > 60.0 mL/min (>60); Globulin 3.4 g/dL (1.7-4.1); Glucose 155 mg/dL (70-100); HDL Cholesterol 35 mg/dL (40-60); HEMOLYSIS < 15 (0-50); LDL Cholesterol Calculated 240 mg/dL (<100); Potassium 3.5 mmol/L (3.4-5.1); Sodium 138 mmol/L (137-145); Total Protein 7.5 g/dL (6.3-8.2); Triglycerides 196 mg/dL (35-150); Uric Acid 9.3 mg/dL (3.5-8.5)
== END ==
PROVIDERS: PCP Registered Nurse; Referring Provider Registered Nurse; Visit Provider Registered Nurse
DX: E78.5 Hyperlipidemia, unspecified (principal); I10 Essential (primary) hypertension; M10.9 Gout, unspecified
CPT/HCPCS: 36415; 80053; 80061; 84550

== ENCOUNTER → 2021-03-12 11:50 | Outpatient (CLI) | payer OTHER, MEDICAID, SELFPAY ==
[2020-05-20 14:46] VITALS: BMI 42.5
[2021-03-12 14:48] LABS: Hemoglobin A1C% w Est Avg Glu 6.2 % (4.0-6.0)
[2021-03-12 14:50] LABS: Alanine Aminotransferase 85 IU/L (<50); Albumin 4.2 g/dL (3.5-5.0); Albumin Globulin Ratio 1.2 (1.0-2.8); Alkaline Phosphatase 71 U/L (38-126); Aspartate Aminotransferase 69 IU/L (17-59); BUN Creatinine Ratio 13.7 (6-22); Bilirubin Total 0.7 mg/dL (0.2-1.3); Blood Urea Nitrogen 16 mg/dL (9-20); Calcium 9.2 mg/dL (8.4-10.2); Carbon Dioxide 26 mmol/L (22-32); Chloride 102 mmol/L (98-107); Estimated Glomerular Filt Rate > 60.0 mL/min (>60); Globulin 3.6 g/dL (1.7-4.1); Glucose 101 mg/dL (70-100); HDL Cholesterol 30 mg/dL (40-60); HEMOLYSIS < 15 (0-50); Potassium 3.3 mmol/L (3.4-5.1); Sodium 136 mmol/L (137-145); Total Protein 7.8 g/dL (6.3-8.2); Triglycerides 274 mg/dL (35-150)
[2021-03-12 15:05] LABS: Cholesterol 355 mg/dL (140-199); LDL Cholesterol Calculated 270 mg/dL (<100)
[2021-03-12 15:40] LABS: Free T4, Direct Thyroxine 0.99 ng/dL (0.78-2.19)
[2021-03-12 15:54] LABS: Thyroid Stimulating Hormone 3.05 uIU/mL (0.47-4.68)
== END ==
PROVIDERS: PCP Registered Nurse; Referring Provider Registered Nurse; Visit Provider Registered Nurse
DX: R63.5 Abnormal weight gain (principal); E78.5 Hyperlipidemia, unspecified; I10 Essential (primary) hypertension; R73.01 Impaired fasting glucose
CPT/HCPCS: 36415; 80053; 80061; 83036; 84439; 84443

== ENCOUNTER → 2021-03-23 15:49 | Outpatient (CLI) | payer OTHER, MEDICAID, SELFPAY ==
[2020-05-20 14:46] VITALS: BMI 42.5
--- NOTE | 2021-03-24 14:31 | DIET.PN ---
Addendum entered by Brooke Silverman 03/24/21 14:47: Pt seen on 03/23/21 Original Note: Dietary Progress Note Assessment: 45y M attending RD visit for help with desired weight loss as pt has back pain, scoliosis, HTN and HLD. Pt was seen by [facility] clinic for medical weight loss was taking metformin, 1600 kcal ketogenic diet, and walking 6-8mi daily prior to the pandemic. He had lost considerable weight, was down to 240# but has gained all back plus more (70#+). Pt feeling frustrated about disjointed care. Pt ruminating about recently ended romantic relationship he states put him into a depression. 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 Pt ended relationship and was depressed so stopped exercising and mostly ordered food as take out leading to significant weight gain. Pts Goal is to feel healthy and not be in pain. Pt currently walking 2mi daily down from 6-8mi prior, after work 4:30pm three days per week. Pt recently bought frozen chicken and broccoli and would like to start meal prepping again. Usual Day: wakes 7am, works from home at 7:30am first break has snack 10:30am Lunch 11:30am dinner after walk RD Impression: Pt has the tools to lose the weight he regained during the pandemic, he is interested in accountability check ins and needed to have an RD appointment to focus his intention. HT: 5'9 WT: 322# UBW: 240# BMI: 47.5 Labs: A1c 6.2 H, FBG 101 H, TG 274 H, TC 355 H, LDL 270 H, HDL 30 L Nutrition Diagnosis: Interventions: 1. To support weight loss and healthy body, pt will continue walking 2-3mi 3x/w slowly increasing as tolerated back to his 6mi daily then once weight goal achieved, pt will continue walking 5mi 3x/w for maintenance. 2. To support weight loss and healthy body, pt will wake 6:45am to eat breakfast before work and will begin meal prepping healthy options to regulate eating and stop ordering take out. 3. To address HLD/HTN and reduce pts risk of cardiovascular incident, counselled pt on sources of lean protein and soluble fiber to both fill patient up but also reduce cholesterol levels. Monitoring/Evaluations: f/u in 4 weeks to assess progress and problem solve barriers.
== END ==
PROVIDERS: PCP Registered Nurse; Referring Provider Registered Nurse; Visit Provider Registered Nurse
DX: E66.9 Obesity, unspecified (principal); Z68.42 Body mass index [BMI] 45.0-49.9, adult; M54.9 Dorsalgia, unspecified; M41.9 Scoliosis, unspecified; I10 Essential (primary) hypertension; E78.5 Hyperlipidemia, unspecified; Z71.3 Dietary counseling and surveillance
CPT/HCPCS: 97802

== ENCOUNTER → 2021-03-27 09:59 | Outpatient (CLI) | payer OTHER, MEDICAID, SELFPAY ==
[2020-05-20 14:46] VITALS: BMI 42.5
--- NOTE | 2021-03-27 10:00 | DI.US.S_ITS ---
PROCEDURE: US ABDOMEN LIMITED INDICATIONS: ELEVATED LIVER ENZYMES; HTN TECHNIQUE: Real-time focused scanning was performed of the abdomen, with image documentation. COMPARISON: None. FINDINGS: The liver demonstrates prominent size. The liver demonstrates generalized prominently increased echogenicity. This decreases ultrasound sensitivity for detection of hepatic masses. No findings of gallstones or sludge are seen. The gallbladder wall is not thickened, measuring 3 mm or less. No specific pericholecystic fluid is seen. The sonographic Núñez sign is negative. There is no biliary dilatation, the common bile duct measures 5 mm. The pancreas is poorly seen, secondary to overlying bowel gas. The right kidney measures 11.4 cm in length and the left kidney measures 11.7 cm in length. The renal cortex measures within normal limits for thickness. No hydronephrosis, cyst, solid masses, or shadowing stones can be seen within either kidney. The urinary bladder is not distended. This study is limited by body habitus. IMPRESSION: Large, fatty liver. Dictated by: Tony Reagan M.D. on 03/27/2021 at 11:02 Approved by: Tony Reagan M.D. on 03/27/2021 at 11:09
== END ==
PROVIDERS: PCP Registered Nurse; Referring Provider Registered Nurse; Visit Provider Registered Nurse
DX: R74.8 Abnormal levels of other serum enzymes (principal); I10 Essential (primary) hypertension
CPT/HCPCS: 76705

== ENCOUNTER → 2021-04-15 15:38 | Outpatient (CLI) | payer OTHER, MEDICAID, SELFPAY ==
[2020-05-20 14:46] VITALS: BMI 42.5
--- NOTE | 2021-04-15 15:57 | DIET.PN ---
Dietary Progress Note 2w nutrition f/u for 46y morbidly obese pt desiring help c weight loss. Pt body weight today 319#, down 3# in 3w. Pt has been trying to eat breakfast, overnight oats or eggs. Pt got almonds and walnuts to snack on, doesn't eat out of boredom and has nuts in portion controlled bags. Pt avoiding bread, trying to stick to 1400 kcals, bought stevia to add to coffee in morning. Trying to do meal prep, chicken, salad c vinaigrette, 2 cups fruit daily max Pt has been walking 2d/w up to 4mi each. Pt continues to have sciatic pain. Interventions and patient goals: 1. To support continued weight loss and fitness, pt will add one day per week of strength training and elliptical at [employer] in addition to walking twice per week. Pt will go for walk in evening if feeling the urge to snack. 2. To support healthy eating patterns, pt will purchase pork loin and cook for lunches to eat with green salad. Pt having difficulty eating lunch and finds he overeats in evening to make up for the lost meal. Pt will prioritize lunch moving forward and set alarm on phone. f/u in 4w for weigh in and problem solving.
== END ==
PROVIDERS: PCP Registered Nurse; Referring Provider Registered Nurse; Visit Provider Registered Nurse
DX: E66.01 Morbid (severe) obesity due to excess calories (principal); Z71.3 Dietary counseling and surveillance
CPT/HCPCS: 97803

== ENCOUNTER → 2021-04-21 13:21 | Outpatient (CLI) | payer OTHER, MEDICAID, SELFPAY ==
[2020-05-20 14:46] VITALS: BMI 42.5
--- NOTE | 2021-04-21 13:22 | DI.MG.S_ITS ---
MALE BILATERAL DIGITAL DIAGNOSTIC MAMMOGRAM 3D/2D: 04/21/2021 CLINICAL: Right breast pain. Baseline mammogram in a male patient. No prior exams were available for comparison. There is a benign irregular area of fibroglandular tissue in the right breast central to the nipple in the retroareolar region. There is interspersed fat. Trace left retroareolar fibroglandular tissue. No other significant masses, calcifications, or other findings are seen in either breast. IMPRESSION: BENIGN No mammographic evidence of malignancy. Right retroareolar breast mild asymmetric gynecomastia. Exam findings were conveyed to the patient. Patient is advised to monitor for significant change. Clinical follow-up as needed. This exam was interpreted at Station ID: [id number]. NOTE: For mammograms, a report in lay terms will be sent to the patient. Approximately 15% of breast malignancies will not be visualized mammographically. In the management of a palpable breast mass, a negative mammogram must not discourage biopsy of a clinically suspicious lesion. Electronically Signed By: Guy Morales M.D. [facility]/:04/21/2021 14:03:40 letter sent: Clinical Evaluation ACR BI-RADS Category 2: Benign Finding(s) 3342F
== END ==
PROVIDERS: PCP Registered Nurse; Referring Provider Registered Nurse; Visit Provider Registered Nurse
DX: N64.4 Mastodynia (principal); N62 Hypertrophy of breast
CPT/HCPCS: 77066; G0279

== ENCOUNTER → 2021-05-15 08:53 | Outpatient (CLI) | payer OTHER, MEDICAID, SELFPAY ==
[2020-05-20 14:46] VITALS: BMI 42.5
[2021-05-15 11:13] LABS: Alanine Aminotransferase 58 IU/L (<50); Albumin 3.8 g/dL (3.5-5.0); Albumin Globulin Ratio 1.4 (1.0-2.8); Alkaline Phosphatase 63 U/L (38-126); Aspartate Aminotransferase 42 IU/L (17-59); BUN Creatinine Ratio 13.7 (6-22); Bilirubin Total 0.4 mg/dL (0.2-1.3); Blood Urea Nitrogen 16 mg/dL (9-20); Calcium 9.2 mg/dL (8.4-10.2); Carbon Dioxide 27 mmol/L (22-32); Chloride 105 mmol/L (98-107); Estimated Glomerular Filt Rate > 60.0 mL/min (>60); Globulin 2.8 g/dL (1.7-4.1); Glucose 119 mg/dL (70-100); HEMOLYSIS < 15 (0-50); Potassium 4.1 mmol/L (3.4-5.1); Sodium 140 mmol/L (137-145); Total Protein 6.6 g/dL (6.3-8.2)
[2021-05-19 07:02] LABS: Metanephrine,Plasma <10.0 pg/mL (0.0-88.0)
== END ==
PROVIDERS: Registered Nurse; PCP Family Medicine; Referring Provider Family Medicine; Visit Provider Family Medicine
DX: R89.9 Unspecified abnormal finding in specimens from other organs, systems and tissues (principal); F32.9 Major depressive disorder, single episode, unspecified
CPT/HCPCS: 36415; 80053; 83835

== ENCOUNTER → 2021-05-17 16:32 | Outpatient (CLI) | payer OTHER, MEDICAID, SELFPAY ==
[2020-05-20 14:46] VITALS: BMI 42.5
[2021-05-20 16:16] LABS: Creatinine, 24 Urine 2718 mg/24 hr (1000-2000); Creatinine,Urine 135.9 mg/dL (Not Estab.); Dopamine, Ur 24hr 336 ug/24 hr (0-510); Epinephrine, U 24hr <2 ug/24 hr (0-20); Metanephrine, Urine <10 ug/L (Undefined); Norepinephrine Ur 24hr 52 ug/24 hr (0-135); Normetanephrine Ur 24hr 578 ug/24 hr (156-729); Normetanephrine, Ur 289 ug/L (Undefined)
[2021-05-22 12:22] LABS: Cortisol Fr ug/24hr urine 48 ug/24 hr (5-64); Cortisol, Free, Urine 24 ug/L (Undefined)
== END ==
PROVIDERS: PCP Family Medicine; Referring Provider Family Medicine; Visit Provider Family Medicine
DX: R63.5 Abnormal weight gain (principal); R73.01 Impaired fasting glucose; R74.8 Abnormal levels of other serum enzymes; R73.03 Prediabetes; E78.5 Hyperlipidemia, unspecified; I10 Essential (primary) hypertension; F32.9 Major depressive disorder, single episode, unspecified
CPT/HCPCS: 82384; 82530; 82570; 83835

== ENCOUNTER → 2021-06-05 16:47 | Outpatient (CLI) | payer OTHER, MEDICAID, SELFPAY ==
[2020-05-20 14:46] VITALS: BMI 42.5
--- NOTE | 2021-06-05 16:49 | DI.RAD.S_ITS ---
PROCEDURE: XR FOOT RT MIN 3V INDICATIONS: great toe pain TECHNIQUE: 3 views of the foot were acquired. COMPARISON: None. FINDINGS: Bones: No fractures or dislocations. No suspicious bony lesions. Small calcaneal bone spurs. Soft tissues: No tibiotalar joint effusion. Achilles tendon appears normal. Soft tissue swelling noted adjacent to the 1st MTP joint. IMPRESSION: 1. No fracture. No acute osseous lesion. If symptoms and/or clinical suspicion for pathology persists, further assessment with repeat radiographs (7-10 days) or advanced imaging (e.g. CT, MRI or bone scan) should be considered. 2. Nonspecific soft tissue swelling noted adjacent to the 1st MTP joint. Findings could be secondary to infectious or inflammatory etiologies. Please correlate with clinical and laboratory data. Dictated by: Lakshmi Rhodes MD, PhD on 06/05/2021 at 17:09 Approved by: Lakshmi Rhodes MD, PhD on 06/05/2021 at 17:10
== END ==
PROVIDERS: PCP Family Medicine; Referring Provider Family Medicine; Visit Provider Family Medicine
DX: M1A.9XX0 Chronic gout, unspecified, without tophus (tophi) (principal); M79.674 Pain in right toe(s)
CPT/HCPCS: 73630

== ENCOUNTER → 2021-06-18 17:24 | Outpatient (CLI) | payer OTHER, MEDICAID, SELFPAY ==
[2020-05-20 14:46] VITALS: BMI 42.5
[2021-06-18 17:53] LABS: Add Manual Diff / Slide Review NO; Basophils Absolute Auto 100 /uL (0-100); Basophils Percent Auto 0.9 % (0-2); Eosinophils Absolute Auto 200 /uL (0-450); Hematocrit 43.4 % (41-53); Hemoglobin 14.2 g/dL (13.5-17.5); Lymphocytes Absolute Auto 1900 /uL (1100-4500); Lymphocytes Percent Auto 21.9 % (25-40); Mean Corpuscular HGB Conc 32.8 % (30-36); Mean Corpuscular Volume 88.4 fL (80-100); Monocytes Absolute Auto 600 /uL (0-900); Neutrophils Absolute Auto 6000 /uL (1500-7000); Neutrophils Percent Auto 68.2 % (50-75); Platelet Count 285 X10^3/uL (150-400); Red Blood Cell Count 4.91 X10^6/uL (4.5-5.9); Red Cell Distribution Width 14.5 % (11.6-14.8); White Blood Cell Count 8.8 X10^3/uL (4.5-11.0)
[2021-06-18 18:08] LABS: Albumin 4.3 g/dL (3.5-5.0); BUN Creatinine Ratio 12.9 (6-22); Bilirubin Direct 0.2 mg/dL (0.0-0.4); Blood Urea Nitrogen 16 mg/dL (9-20); Carbon Dioxide 30 mmol/L (22-32); Chloride 101 mmol/L (98-107); Estimated Glomerular Filt Rate > 60.0 mL/min (>60); Glucose 112 mg/dL (70-100); HEMOLYSIS < 15 (0-50); Phosphorous 2.7 mg/dL (2.5-4.5); Potassium 3.8 mmol/L (3.4-5.1); Sodium 141 mmol/L (137-145); Uric Acid 5.5 mg/dL (3.5-8.5)
[2021-06-18 18:38] LABS: Cortisol Random 9.74 ug/dL
[2021-06-20 16:46] LABS: Collection Time Urine 24 Hours; Patient Height Urine 69 inches; Patient Weight Urine 325 lbs; Total Volume Urine 1200 mL
[2021-06-20 17:31] LABS: Creat Clearance, Corrected 69.1 mL/MIN; Creatinine Clearance Urine 101.1 mL/MIN; Creatinine Urine Random 169.8 mg/dL; Sodium 24 Hour Urine 158 mmol/day (40-220); Sodium Urine Random 132 mmol/L (30-90); Urea Nitrogen 24 Hour Urine 10 g/DAY (12-20); Urea Nitrogen,Urine Random 799 mg/dL
[2021-06-25 13:10] LABS: Renin Activity 2.126 ng/mL/hr (0.167-5.380)
[2021-06-26 16:00] LABS: Cortisol Fr ug/24hr urine 19 ug/24 hr (5-64); Cortisol, Free, Urine 16 ug/L (Undefined)
[2021-06-29 15:35] LABS: Vanillylmandelic Acid Ur 3.8 mg/L (Undefined)
== END ==
PROVIDERS: PCP Family Medicine; Referring Provider Internal Medicine Nephrology; Visit Provider Internal Medicine Nephrology
DX: I12.9 Hypertensive chronic kidney disease with stage 1 through stage 4 chronic kidney disease, or unspecified chronic kidney disease (principal)
CPT/HCPCS: 36415; 80069; 82088; 82248; 82384; 82530; 82533; 82575; 82610; 84244; 84300; 84540; 84550; 84585; 85025

== ENCOUNTER 2022-02-17 15:31 | Emergency (ER) | payer OTHER, MEDICAID, SELFPAY ==
[2021-09-23 11:23] VITALS: BMI 42.5
[2022-02-17 15:53] VITALS: BP 216/107; PULSE 105; RESP 20; TEMP 36.7; O2SAT 98
--- NOTE | 2022-02-17 15:59 | DI.RAD.S_ITS ---
PROCEDURE: XR ANKLE RT MIN 3V INDICATIONS: pain after fall one month ago TECHNIQUE: Three views of the ankle were acquired. COMPARISON: None. FINDINGS: Bones: No fractures or dislocations. Ankle mortise is normally aligned. No suspicious bony lesions. Small posterior calcaneal enthesophyte. Soft tissues: Mild soft tissue edema is seen surrounding the ankle. No suspicious soft tissue calcification. IMPRESSION: No acute osseous abnormality. If clinical suspicion and/or symptoms persist, additional imaging with repeat plain films, or advanced imaging (e.g. CT, MRI) may be helpful for further assessment. Dictated by: Abdirahman Schneider M.D. on 02/17/2022 at 16:26 Approved by: Abdirahman Schneider M.D. on 02/17/2022 at 16:27
--- NOTE | 2022-02-17 16:59 | ED.LOWEXIN ---
HPI - Extremity Injury (Lower) General Chief Complaint: Extremity Injury, Lower Stated Complaint: Rt foot pain, unknown injury Time Seen by Provider: 02/17/22 16:59 Source: patient Mode of arrival: Ambulatory History of Present Illness HPI Narrative: 46-year-old gentleman with a history of anxiety depression and 120 lb weight increase over the past year and a half notes a fall in the shower approximately 3 weeks ago. He injured his right ankle foot and felt that that is getting better however over the ensuing weeks he notices that driving with increased flexion extension of the foot causes increased pain walking for extended periods is tender and the tenderness is clearly localized and to the posterior portion of his heel. In the past he has had problems with plantar fasciitis and he describes this is distinctly different from that. He notes that the pain at this point is causing difficulty with sleeping and making his blood pressure more difficult to control due to the pain. He has no paresthesias or weakness associated with this injury. Related Data Home Medications Medication Instructions Recorded Confirmed multivitamin 1 tab PO DAILY 01/10/18 06/05/21 ResMed AirSense 10 Auto CPAP #1 ea 10/11/18 06/05/21 acetaminophen 500 mg tablet 1,000 mg PO Q6H PRN Pain (Scale 02/01/19 06/05/21 (Tylenol Extra Strength) Score 1-3) Previous Rx's Medication Instructions Recorded clonidine HCl 0.1 mg tablet 0.1 mg PO .COMPLEX #10 tabs 03/03/21 losartan 100 1 tab PO DAILY #90 tabs 05/15/21 mg-hydrochlorothiazide 25 mg tablet metformin 500 mg tablet 500 mg PO BID #180 tabs 05/15/21 febuxostat 40 mg tablet (Uloric) 40 mg PO DAILY gout #90 tabs 06/15/21 bupropion HCl 100 mg tablet,12 hr See Rx Instructions .Route 09/01/21 sustained-release .COMPLEX #60 tabs rosuvastatin 20 mg tablet See Rx Instructions .Route 10/05/21 .COMPLEX #90 tabs meloxicam 15 mg tablet 15 mg PO DAILY #20 tabs 02/17/22 Allergies Allergy/AdvReac Type Severity Reaction Status Date / Time allopurinol Allergy Severe kidney Verified 06/05/21 13:02 stones amlodipine Allergy Intermediate swelling Verified 06/05/21 13:02 of legs and exacerbates gout labetalol Allergy feels bad Verified 06/05/21 13:02 Iodinated Contrast Media AdvReac Severe Swollen Verified 06/05/21 13:02 [Iodinated Contrast- Oral Tounge, and IV Dye] Hives iodine [IODINE] AdvReac Severe SWOLLEN Verified 06/05/21 13:02 THROAT, BURNING EYES AND HIVES ALL OVER BODY lisinopril AdvReac Mild Itchy Verified 06/05/21 13:02 throat, itchy eyes SSRIs AdvReac Nausea, Uncoded 06/05/21 13:02 Fatigue, Sweating Review of Systems Review of Systems Narrative: Remainder of complete review of systems is otherwise unremarkable except for that included in the HPI. Patient History Medical History Abnormal laboratory test result Anxiety (~2006) Breast pain, right Chronic back pain (~2009) Depression (~2006) Depression Eczema (~2009) Essential (primary) hypertension (~2012) Excessive daytime sleepiness Foot pain (~2016) Gout (~2015) Hemorrhoids (~2013) Insomnia, unspecified Morbid obesity with body mass index (BMI) of 40.0 to 49.9 Obstructive sleep apnea of adult Prediabetes Scoliosis Weight gain Surgical History Hx of removal of cyst Family History Father Heart disease Diabetes mellitus Hypertension Hyperlipidemia Mother Fibromyalgia Brother Diabetes mellitus Grandmother Heart attack Social History marital status: details: has [place] household members: friend(s) lives independently: Yes caregiver/support person: No housing: house pets and animals: Yes education level: college occupational status: employed seatbelt use: always water heater temp set < 120 deg: Yes working smoke detector in home: Yes fire extinguisher in home: Yes carbon monox detector in home: Yes firearms in home: No Smoking Status: Never smoker second hand exposure: No alcohol intake: current substance use type: does not use during the past year weight has: increased > 10 lbs well-balanced diet: daily or most days daily servings fruits/ve-1 caffeine: Yes eating out: rarely or never Type(s) of exercise: walking, yoga and additional frequency: 3-4 times per week duration: 45-60 minutes/day Smoking Status: Never smoker alcohol intake frequency: 0-2 drinks per day Substance Use Type: marijuana Exam Initial Vital Signs Initial Vital Signs: Vital Signs Temperature 98.1 F 02/17/22 15:53 Pulse Rate 105 H 02/17/22 15:53 Respiratory Rate 20 02/17/22 15:53 Blood Pressure 216/107 H 02/17/22 15:53 Pulse Oximetry 98 02/17/22 15:53 Oxygen Delivery Method 02/17/22 15:53 General: Alert appropriate in no acute distress Respiratory: Able to speak in full sentences, no obvious respiratory distress Skin: No obvious rashes, warm and dry Neurologic: Grossly intact no obvious asymmetries or abnormalities Psych: appropriate insight and affect, cooperative extremity: No significant lower extremity edema. He is tender over the over the posterior heel on the right for the Achilles tendon inserts. There is no significant swelling. No step-off or tenderness to the more proximal Achilles tendon and with palpation of gastroc he has appropriate dorsiflexion of the foot Course Orders Ordered: ED Orders 02/17/22 15:59 XR ankle RT min 3V Stat Vital Signs Vital signs: Vital Signs - 8 hr 02/17/22 15:53 Temperature 98.1 F Pulse Rate 105 H Respiratory Rate 20 Blood Pressure 216/107 H Pulse Oximetry 98 Oxygen Delivery Method Room Air MDM - Extremity Injury (Lower) Imaging Data XR ankle: Radiologist's Impression: FINDINGS:? Image quality:? Excellent.? ? CSF Spaces:? Basal cisterns are patent.? No extra-axial fluid collections.? Ventricles are normal in size and shape.? ? Brain:? No midline shift.? No intracranial bleeds or masses.? No abnormal intracranial enhancement.? The brainstem appears normal.? Diffusion-weighted images demonstrate no acute ischemic insults.? No chronic ischemic insults.? Normal intravascular flow voids are present.? ? Skull and face:? Calvarial marrow is normal in signal.? Orbits appear normal.? ? Sinuses:? Sinuses and mastoids appear clear.? IMPRESSION:? ? No imaging explanation is found for this patient's presenting symptoms.? ? No findings of acute or subacute infarction can be seen. ? No masses or abnormal enhancement can be seen.? ? Dictated by: Tony Reagan M.D. on 02/17/2022 at 14:58? ?? MDM Narrative Medical decision making narrative: 46-year-old gentleman with an acute injury to the right ankle falling in the shower 3 weeks ago with what appears to be in Achilles tendinopathy without acute Achilles tear or any bony injury to the foot. We talked about ice, rest, elevation using a slight heel lift to help with pain control and a prescription for meloxicam. He does have an appointment with Podiatry at the end of the month and I encouraged him to keep that. He is safe for home discharge Discharge Plan Departure Patient Disposition: Home Clinical Impression: Achilles tendinitis of right lower extremity Instructions: Achilles Tendinopathy Activity Restrictions/Additional Instructions: Thank you for coming in today Your x-ray is unremarkable. There are no acute fractures. On your physical exam I a.m. not seeing any signs of any acute Achilles tendon rupture. You do appear to have an acute Achilles tendinitis. Treatment for this is rest, ice, elevation. In terms of splinting for your foot wearing a shoe that gives you a slight amount of lift to your heel will often be more comfortable. I would recommend keeping your appointment with the supervisor pipeline maintenance at the end of the month. If symptoms have not improved with able have suggestions for additional care I am going to give you a prescription for 2 weeks of meloxicam. This is a daily anti-inflammatory that may help a bit with the pain. Prescription was electronically transmitted to [facility] in [place]. If you find that you are getting worse or develop any new symptoms, please feel free to return to the emergency department for further evaluation. Prescriptions: New meloxicam 15 mg tablet 15 mg PO DAILY Qty: 20 0RF No Action multivitamin tablet 1 tab PO DAILY febuxostat [Uloric] 40 mg tablet 40 mg PO DAILY Qty: 90 3RF bupropion HCl 100 mg tablet sustained-release 12 hr See Rx Instructions .ROUTE .COMPLEX Qty: 60 4RF Dose Instruction: TAKE 1 TABLET BY MOUTH TWICE DAILY Rx Instructions: TAKE 1 TABLET BY MOUTH TWICE DAILY rosuvastatin 20 mg tablet See Rx Instructions .ROUTE .COMPLEX Qty: 90 3RF Dose Instruction: TAKE 1 TABLET BY MOUTH DAILY Rx Instructions: TAKE 1 TABLET BY MOUTH DAILY acetaminophen [Tylenol Extra Strength] 500 mg tablet 1,000 mg PO Q6H PRN (Reason: Pain (Scale Score 1-3)) clonidine HCl 0.1 mg tablet 0.1 mg PO .COMPLEX Qty: 10 0RF Rx Instructions: 0.1 mg PO as needed for SBP > 160 metformin 500 mg tablet 500 mg PO BID Qty: 180 3RF losartan-hydrochlorothiazide 100-25 mg tablet 1 tab PO DAILY Qty: 90 2RF (DME) ResMed AirSense 10 Auto CPAP Qty: 1 Dose Instruction: As directed Label Comments: Pressure: 6-12 cmH2O DME: [place] Rx Instructions: As directed Referrals: Hunter García MD [Primary Care Provider] - Stand Alone Forms: Work Release Note
[2022-02-17 17:57] VITALS: BP 188/99; PULSE 89; RESP 18; O2SAT 97
== END 2022-02-17 17:57 | disposition home or self-care (01) ==
PROVIDERS: Emergency Provider Emergency Medicine; PCP Family Medicine
DX: M76.61 Achilles tendinitis, right leg (principal)
CPT/HCPCS: 73610; 99281; 99283

== ENCOUNTER → 2022-11-25 11:14 | Outpatient (CLI) | payer OTHER, MEDICAID, SELFPAY ==
[2021-09-23 11:23] VITALS: BMI 42.5
[2022-11-25 12:14] LABS: Add Manual Diff / Slide Review NO; Basophils Absolute Auto 0 /uL (0-100); Basophils Percent Auto 0.5 % (0-2); Eosinophils Absolute Auto 100 /uL (0-450); Eosinophils Percent Auto 1.6 % (2-4); Hematocrit 42.5 % (41-53); Hemoglobin 14.5 g/dL (13.5-17.5); Lymphocytes Absolute Auto 1800 /uL (1100-4500); Lymphocytes Percent Auto 23.1 % (25-40); Mean Corpuscular HGB Conc 34.1 % (30-36); Mean Corpuscular Hemoglobin 29.5 PG (26-34); Mean Corpuscular Volume 86.6 fL (80-100); Monocytes Absolute Auto 500 /uL (0-900); Neutrophils Absolute Auto 5200 /uL (1500-7000); Neutrophils Percent Auto 67.8 % (50-75); Platelet Count 294 X10^3/uL (150-400); Red Blood Cell Count 4.91 X10^6/uL (4.5-5.9); Red Cell Distribution Width 14.4 % (11.6-14.8); White Blood Cell Count 7.7 X10^3/uL (4.5-11.0)
[2022-11-25 12:30] LABS: Hemoglobin A1C% w Est Avg Glu 6.5 % (4.0-6.0)
[2022-11-25 12:33] LABS: Alanine Aminotransferase 50 IU/L (<50); Albumin 4.1 g/dL (3.5-5.0); Albumin Globulin Ratio 1.1 (1.0-2.8); Alkaline Phosphatase 86 U/L (38-126); Aspartate Aminotransferase 34 IU/L (17-59); BUN Creatinine Ratio 15.2 (6-22); Bilirubin Total 0.4 mg/dL (0.2-1.3); Blood Urea Nitrogen 16 mg/dL (9-20); Calcium 8.6 mg/dL (8.4-10.2); Carbon Dioxide 31 mmol/L (22-32); Chloride 102 mmol/L (98-107); Cholesterol 313 mg/dL (140-199); Estimated Glomerular Filt Rate > 60 mL/min (>60); Globulin 3.7 g/dL (1.7-4.1); Glucose 113 mg/dL (70-100); HDL Cholesterol 35 mg/dL (40-60); HEMOLYSIS < 15 (0-50); LDL Cholesterol Calculated 234 mg/dL (<100); Potassium 3.6 mmol/L (3.4-5.1); Sodium 139 mmol/L (137-145); Total Protein 7.8 g/dL (6.3-8.2); Triglycerides 221 mg/dL (35-150); Uric Acid 8.9 mg/dL (3.5-8.5)
[2022-11-25 13:14] LABS: TSH w/ Reflex to FT4 2.89 uIU/mL (0.47-4.68)
[2022-11-25 14:58] LABS: Creatinine Urine Random 107.1 mg/dL
[2022-11-25 15:04] LABS: Microalbumin Urine Random 7.4 mg/dL (0-1.6)
== END ==
PROVIDERS: PCP Family Medicine; Referring Provider Family Medicine; Visit Provider Family Medicine
DX: E78.5 Hyperlipidemia, unspecified (principal); I10 Essential (primary) hypertension; N64.4 Mastodynia; R73.01 Impaired fasting glucose; R73.03 Prediabetes
CPT/HCPCS: 36415; 80053; 80061; 82043; 82570; 83036; 84443; 84550; 85025

== ENCOUNTER 2023-01-23 20:12 | Emergency (ER) | payer OTHER, MEDICAID, SELFPAY ==
[2021-09-23 11:23] VITALS: BMI 42.5
[2023-01-23] VITALS (7 sets, daily range): BP systolic 164–177; BP diastolic 77–93; PULSE 86–98; RESP 14–28; TEMP 37.6; O2SAT 94–98; BMI 44.3
--- NOTE | 2023-01-23 20:35 | DI.RAD.S_ITS ---
PROCEDURE: XR CHEST 1V INDICATIONS: Shortness of breath TECHNIQUE: One view of the chest was acquired. COMPARISON: [facility], CR, XR CHEST 1V, 03/24/2020, 4:13. FINDINGS: Surgical changes and devices: None. Lungs and pleura: Evaluation limited by lordotic projection. There are low lung volumes with left basilar opacities consistent with atelectasis or consolidation. There is pulmonary vascular prominence consistent with pulmonary edema or vascular crowding. Mediastinum: Mediastinal contours appear widened likely due to low volume and projection. Heart size is normal given technique. Bones and chest wall: No suspicious bony lesions. Overlying soft tissues appear unremarkable. IMPRESSION: 1. Limited study due to projection and low lung volumes. 2. Left basilar atelectasis or consolidation. 3. Pulmonary edema versus vascular crowding. Consider a repeat study when clinically feasible. Dictated by: Uday Bean M.D. on 01/23/2023 at 21:16 Approved by: Uday Bean M.D. on 01/23/2023 at 21:18
[2023-01-23 20:43] LABS: Add Manual Diff / Slide Review NO; Basophils Absolute Auto 0 /uL (0-100); Basophils Percent Auto 0.6 % (0-2); Eosinophils Absolute Auto 100 /uL (0-450); Eosinophils Percent Auto 1.6 % (2-4); Hematocrit 44.8 % (41-53); Hemoglobin 15.3 g/dL (13.5-17.5); Lymphocytes Absolute Auto 1200 /uL (1100-4500); Lymphocytes Percent Auto 18.7 % (25-40); Mean Corpuscular Hemoglobin 29.3 PG (26-34); Monocytes Absolute Auto 800 /uL (0-900); Monocytes Percent Auto 12.2 % (3-14); Neutrophils Absolute Auto 4400 /uL (1500-7000); Neutrophils Percent Auto 66.9 % (50-75); Platelet Count 286 X10^3/uL (150-400); Red Blood Cell Count 5.22 X10^6/uL (4.5-5.9); Red Cell Distribution Width 14.9 % (11.6-14.8); White Blood Cell Count 6.5 X10^3/uL (4.5-11.0)
[2023-01-23 20:45] LABS: INR 1.2 (0.9-1.3); Prothrombin Time 13.4 SECONDS (10.1-12.7)
[2023-01-23 20:51] LABS: Alanine Aminotransferase 66 IU/L (<50); Albumin 4.4 g/dL (3.5-5.0); Albumin Globulin Ratio 1.1 (1.0-2.8); Alkaline Phosphatase 78 U/L (38-126); Aspartate Aminotransferase 54 IU/L (17-59); BUN Creatinine Ratio 10.3 (6-22); Bilirubin Total 0.8 mg/dL (0.2-1.3); Blood Urea Nitrogen 20 mg/dL (9-20); Calcium 8.6 mg/dL (8.4-10.2); Carbon Dioxide 32 mmol/L (22-32); Chloride 100 mmol/L (98-107); Estimated Glomerular Filt Rate 42 mL/min (>60); Globulin 3.9 g/dL (1.7-4.1); Glucose 99 mg/dL (70-100); HEMOLYSIS 21 (0-50); Potassium 3.1 mmol/L (3.4-5.1); Sodium 138 mmol/L (137-145); Total Protein 8.3 g/dL (6.3-8.2)
[2023-01-23 21:02] LABS: NT-proBNP (BNP-Adult 18+) 29 pg/mL (<125); Troponin I < 0.012 ng/mL (0.01-0.034)
--- NOTE | 2023-01-23 21:32 | ED_ITS ---
HPI - SOB/Dyspnea General Chief Complaint: Shortness of Breath/Dyspnea Stated Complaint: Poss pneumonia Time Seen by Provider: 01/23/23 20:40 Source: patient Mode of arrival: Family Vehicle Limitations: no limitations History of Present Illness HPI Narrative: Patient is a 47-year-old male history of hypertension, obstructive sleep apnea, hyperlipidemia presenting today with not feeling well. He reports that he has been ill for the past few days we had cough and body aches. Last night he noticed when he was lying on his left side he had trouble breathing. He does have some shortness of breath with exertion as well. No significant pain. He has a cough that is nonproductive. He reports use around to other people that sick at the same time but they had slightly different symptoms such as a runny nose. Denies any abdominal pain nausea vomiting. No significant peripheral edema. He is currently afebrile here he reports a temperature of 101? at home a few days ago Related Data Home Medications Medication Instructions Recorded Confirmed ResMed AirSense 10 Auto CPAP #1 ea 10/11/18 12/20/22 Previous Rx's Medication Instructions Recorded losartan 100 See Rx Instructions .Route 08/16/22 mg-hydrochlorothiazide 25 mg tablet .COMPLEX #90 tabs bupropion HCl 150 mg 24 hr tablet, 150 mg PO QAM #90 tabs 11/19/22 extended release (Wellbutrin XL) amlodipine 5 mg tablet 5 mg PO DAILY #90 tabs 12/20/22 liraglutide 0.6 mg/0.1 mL (18 mg/3 0.6 mg (0.1 mL) SUBCUT DAILY #6 mL 12/23/22 mL) subcutaneous pen injector ([employer] 2-Constnatin) empty container (Rcra Hazardous #20 ea 12/28/22 Waste) Pen Needle 31 gauge x 1/4 (pen #100 ea 12/31/22 needle, diabetic) peg 3350-electrolytes 236 240 ml PO Q10M #4,000 mL 01/13/23 gram-22.74 gram-6.74 gram-5.86 gram solution (Golytely) Allergies Allergy/AdvReac Type Severity Reaction Status Date / Time allopurinol Allergy Severe kidney Verified 12/20/22 13:56 stones amlodipine Allergy Intermediate swelling Verified 12/20/22 13:56 of legs and exacerbates gout labetalol Allergy feels bad Verified 12/20/22 13:56 Iodinated Contrast Media AdvReac Severe Swollen Verified 12/20/22 13:56 [Iodinated Contrast- Oral Tounge, and IV Dye] Hives iodine [IODINE] AdvReac Severe SWOLLEN Verified 12/20/22 13:56 THROAT, BURNING EYES AND HIVES ALL OVER BODY lisinopril AdvReac Mild Itchy Verified 12/20/22 13:56 throat, itchy eyes Review of Systems Review of Systems ROS Unobtainable: All systems reviewed & are unremarkable except as noted in HPI and below Patient History Medical History Abnormal laboratory test result Anxiety (~2006) Breast pain, right Chronic back pain (~2009) Depression (~2006) Depression Eczema (~2009) Essential (primary) hypertension (~2012) Excessive daytime sleepiness Foot pain (~2016) Gout (~2015) Hemorrhoids (~2013) Insomnia, unspecified Morbid obesity with body mass index (BMI) of 40.0 to 49.9 Obstructive sleep apnea of adult Prediabetes Scoliosis Weight gain Surgical History Hx of removal of cyst Family History Father Heart disease Diabetes mellitus Hypertension Hyperlipidemia Mother Fibromyalgia Brother Diabetes mellitus Grandmother Heart attack Social History marital status: details: has [place] GF [place] household members: friend(s) lives independently: Yes caregiver/support person: No housing: house pets and animals: Yes education level: college occupational status: employed seatbelt use: always water heater temp set < 120 deg: Yes working smoke detector in home: Yes fire extinguisher in home: Yes carbon monox detector in home: Yes firearms in home: No Smoking Status: Never smoker second hand exposure: No alcohol intake: current substance use type: does not use during the past year weight has: increased > 10 lbs well-balanced diet: daily or most days daily servings fruits/ve-1 caffeine: Yes eating out: rarely or never Type(s) of exercise: walking, yoga and additional frequency: 3-4 times per week duration: 45-60 minutes/day Smoking Status: Never smoker alcohol intake frequency: a few times a month Alcohol type: beer Substance Use Type: marijuana Exam Initial Vital Signs Initial Vital Signs: Vital Signs Temperature 99.6 F 01/23/23 20:15 Pulse Rate 98 H 01/23/23 20:15 Respiratory Rate 24 01/23/23 20:15 Blood Pressure 177/93 H 01/23/23 20:15 Pulse Oximetry 95 01/23/23 20:15 Oxygen Delivery Method Room Air 01/23/23 20:15 GENERAL: Alert 47-year-old male BMI 44 HEENT: Head atraumatic,EOMI, pupils reactive, face symmetric, moist mucous m embranes CARDIOVASCULAR: Regular rate and rhythm without murmurs, rubs or gallops. RESPIRATORY: Coarse breath sounds at bases no tachypnea speaks in full sentences without conversational dyspnea ABDOMEN: Soft, nontender. Normoactive bowel sounds all 4 quadrants. No guarding or rebound. EXTREMITIES: Normal range of motion, no clubbing or edema. Neurovascularly intact NEUROLOGICAL: Alert and oriented x4.Normal gait and speech. SKIN: Warm, dry, no laceration, no petechiae, no rashes or lesions. Course Orders Ordered: ED Orders 01/23/23 20:27 Blood Culture Stat Complete Blood Count AUTO DIFF Stat Comprehensive Metabolic Panel Stat Lactate (Lactic Acid) Stat NT-proBNP (BNP-Adult 18+) Stat Prothrombin Time INR Stat Troponin I Stat 01/23/23 20:35 XR chest 1V Stat Measure peak expiratory flow ONCE RT Consult Eval and Treat NOW 01/23/23 20:40 Respiratory Panel (Film Array) Stat Discontinued Medications Albuterol (Albuterol Hfa Prepack) 1 box MISC SEEINSTR ONE Stop: 01/23/23 22:37 Last Admin: 01/23/23 22:42 Dose: 1 box Documented By: WESTON Sodium Chloride (Normal Saline 0.9%) 1,000 mls @ 1,000 mls/hr IV BOLUS ONE Stop: 01/23/23 22:41 Last Infusion: 01/23/23 22:47 Dose: 0 mls/hr Documented By: Admin: 01/23/23 22:04 Dose: 1,000 mls/hr Documented By: KATHY Vital Signs Vital signs: Vital Signs - 8 hr 01/23/23 20:15 01/23/23 21:34 01/23/23 22:09 Temperature 99.6 F Pulse Rate 98 H 91 H Respiratory Rate 24 23 Blood Pressure 177/93 H Pulse Oximetry 95 95 97 Oxygen Delivery Method Room Air Nasal Cannula Oxygen Flow Rate 2 01/23/23 22:42 01/23/23 22:00 01/23/23 22:01 Temperature Pulse Rate 86 Respiratory Rate 14 Blood Pressure 164/90 H Pulse Oximetry 97 Oxygen Delivery Method Room Air Oxygen Flow Rate 01/23/23 22:01 01/23/23 22:30 01/23/23 22:31 Temperature Pulse Rate 91 H 91 H Respiratory Rate 17 15 Blood Pressure 166/77 H Pulse Oximetry 98 94 Oxygen Delivery Method Oxygen Flow Rate 01/23/23 22:31 Temperature Pulse Rate 91 H Respiratory Rate 28 H Blood Pressure Pulse Oximetry 94 Oxygen Delivery Method Oxygen Flow Rate MDM - SOB/Dyspnea Lab Data 01/23/23 20:27 01/23/23 20:27 Labs: Lab Results 01/23/23 01/23/23 01/23/23 Range/Units 20:27 20:27 20:27 WBC 6.5 (4.5-11.0) X10^3/uL RBC 5.22 (4.5-5.9) X10^6/uL Hgb 15.3 (13.5-17.5) g/dL Hct 44.8 (41-53) % MCV 86.0 (80-100) fL MCH 29.3 (26-34) PG MCHC 34.0 (30-36) % RDW 14.9 H (11.6-14.8) % Plt Count 286 (150-400) X10^3/uL Neut % (Auto) 66.9 (50-75) % Lymph % (Auto) 18.7 L (25-40) % Millard % (Auto) 12.2 (3-14) % Eos % (Auto) 1.6 L (2-4) % Baso % (Auto) 0.6 (0-2) % Neut # (Auto) 4400 (2255-7684) /uL Lymph # (Auto) 1200 (9967-2478) /uL Millard # (Auto) 800 (0-900) /uL Eos # (Auto) 100 (0-450) /uL Baso # (Auto) 0 (0-100) /uL PT 13.4 H (10.1-12.7) SECONDS INR 1.2 (0.9-1.3) Sodium 138 (137-145) mmol/L Potassium 3.1 L (3.4-5.1) mmol/L Chloride 100 (98-107) mmol/L Carbon Dioxide 32 (22-32) mmol/L BUN 20 (9-20) mg/dL Creatinine 1.94 H (0.66-1.25) mg/dL Estimated GFR 42 L (>60) mL/min BUN/Creatinine Ratio 10.3 (6-22) Glucose 99 (70-100) mg/dL Lactate (0.7-2.1) mmol/L Calcium 8.6 (8.4-10.2) mg/dL Total Bilirubin 0.8 (0.2-1.3) mg/dL AST 54 (17-59) IU/L ALT 66 H (<50) IU/L Alkaline Phosphatase 78 (38-126) U/L Troponin I < 0.012 (0.01-0.034) ng/mL NT-Pro-B Natriuret Pep 29 (<125) pg/mL Total Protein 8.3 H (6.3-8.2) g/dL Albumin 4.4 (3.5-5.0) g/dL Globulin 3.9 (1.7-4.1) g/dL Albumin/Globulin Ratio 1.1 (1.0-2.8) Chlamy pneumoniae PCR (Not Detect) Adenovirus (PCR) (Not Detect) B. pertussis DNA (PCR) (Not Detecte) B.parapertussis DNA PCR (Not Detecte) Coronavirus OC43 (PCR) (Not Detect) Coronavirus HKU1 (PCR) (Not Detect) Coronavirus 229E (PCR) (Not Detect) SARS-CoV-2 (PCR) (Not Detecte) Coronavirus NL63 (PCR) (Not Detect) Human Metapneumovir PCR (Not Detect) Influenza Type A (PCR) (Not Detect) Influenza Type B (PCR) (Not Detect) M. pneumoniae (PCR) (Not Detect) Parainfluenza 1 (PCR) (Not Detect) Parainfluenza 2 (PCR) (Not Detect) Parainfluenza 3 (PCR) (Not Detect) Parainfluenza 4 (PCR) (Not Detect) RSV (PCR) (Not Detect) Entero/Rhino (PCR) (Not Detect) 01/23/23 01/23/23 Range/Units 20:27 20:40 WBC (4.5-11.0) X10^3/uL RBC (4.5-5.9) X10^6/uL Hgb (13.5-17.5) g/dL Hct (41-53) % MCV (80-100) fL MCH (26-34) PG MCHC (30-36) % RDW (11.6-14.8) % Plt Count (150-400) X10^3/uL Neut % (Auto) (50-75) % Lymph % (Auto) (25-40) % Millard % (Auto) (3-14) % Eos % (Auto) (2-4) % Baso % (Auto) (0-2) % Neut # (Auto) (0184-7491) /uL Lymph # (Auto) (2892-2409) /uL Millard # (Auto) (0-900) /uL Eos # (Auto) (0-450) /uL Baso # (Auto) (0-100) /uL PT (10.1-12.7) SECONDS INR (0.9-1.3) Sodium (137-145) mmol/L Potassium (3.4-5.1) mmol/L Chloride (98-107) mmol/L Carbon Dioxide (22-32) mmol/L BUN (9-20) mg/dL Creatinine (0.66-1.25) mg/dL Estimated GFR (>60) mL/min BUN/Creatinine Ratio (6-22) Glucose (70-100) mg/dL Lactate 1.0 (0.7-2.1) mmol/L Calcium (8.4-10.2) mg/dL Total Bilirubin (0.2-1.3) mg/dL AST (17-59) IU/L ALT (<50) IU/L Alkaline Phosphatase (38-126) U/L Troponin I (0.01-0.034) ng/mL NT-Pro-B Natriuret Pep (<125) pg/mL Total Protein (6.3-8.2) g/dL Albumin (3.5-5.0) g/dL Globulin (1.7-4.1) g/dL Albumin/Globulin Ratio (1.0-2.8) Chlamy pneumoniae PCR Not detected (Not Detect) Adenovirus (PCR) Not detected (Not Detect) B. pertussis DNA (PCR) Not detected (Not Detecte) B.parapertussis DNA PCR Not detected (Not Detecte) Coronavirus OC43 (PCR) Not detected (Not Detect) Coronavirus HKU1 (PCR) Not detected (Not Detect) Coronavirus 229E (PCR) Not detected (Not Detect) SARS-CoV-2 (PCR) Not detected (Not Detecte) Coronavirus NL63 (PCR) Not detected (Not Detect) Human Metapneumovir PCR Detected H (Not Detect) Influenza Type A (PCR) Not detected (Not Detect) Influenza Type B (PCR) Not detected (Not Detect) M. pneumoniae (PCR) Not detected (Not Detect) Parainfluenza 1 (PCR) Not detected (Not Detect) Parainfluenza 2 (PCR) Not detected (Not Detect) Parainfluenza 3 (PCR) Not detected (Not Detect) Parainfluenza 4 (PCR) Not detected (Not Detect) RSV (PCR) Not detected (Not Detect) Entero/Rhino (PCR) Detected H (Not Detect) Imaging Data Chest x-ray: Radiologist's Impression: PROCEDURE:? XR CHEST 1V ? INDICATIONS:? Shortness of breath ? TECHNIQUE:? One view of the chest was acquired.? ? COMPARISON:? [facility], , XR CHEST 1V, 03/24/2020, 4:13. ? FINDINGS:? ? Surgical changes and devices:? None.? ? Lungs and pleura:? Evaluation limited by lordotic projection.? There are low lung volumes with left basilar opacities consistent with atelectasis or consolidation.? There is pulmonary vascular prominence consistent with pulmonary edema or vascular crowdi ng. ? Mediastinum:? Mediastinal contours appear widened likely due to low volume and projection.? Heart size is normal given technique.? ? Bones and chest wall:? No suspicious bony lesions.? Overlying soft tissues appear unremarkable.? ? IMPRESSION:? ? 1. Limited study due to projection and low lung volumes. ? 2. Left basilar atelectasis or consolidation. ? 3. Pulmonary edema versus vascular crowding. ? Consider a repeat study when clinically feasible. ? ? Dictated by: Uday Bean M.D. on 01/23/2023 at 21:16 ? ? ECG Data Interpretation: Normal sinus rhythm rate 93 AK interval 148 QRS [address] changes no T-wa ve inversions similar to previous EKGs [facility] Narrative Medical decision making narrative: Patient is a 47-year-old male history of hypertension HAYLEY presents today fever body aches and shortness of breath. X-ray shows left basilar atelectasis or consolidation and pulmonary edema versus vascular crowding. He is no leukocytosis no elevated lactate or elevated procalcitonin. His viral panel is positive for human metapneumovirus and enterovirus. At this time I do not think antibiotics are indicated symptoms are consistent with a viral etiology, no antibiotics indicated. Blood work does show potassium of 3.1 and increased creatinine 1.94 previously was 1.0. He was given a L of fluid. He required small amount of oxygen but only temporary. He pass an ambulation trial and does not require any oxygen. At this time he does not meet any admission criteria. He was given an albuterol inhaler with a spacer. At this time there is also no sign of severe sepsis. #116 - Avoidance of Antibiotic Treatment for Acute Bronchitis/Bronchiolitis X The patient has acute bronchitis/bronchiolitis and antibiotics were not prescribed or dispensed today. [[facility] PERFORMANCE] [] The patient has acute bronchitis/ bronchiolitis. Antibiotics were prescribed or dispensed because the patient meets one of the following: [MIPS PERFORMANCE EXCEPTION/EXCLUSION] [] Patient has a medical reason for prescribing or dispensing an antibiotic. That reason is [] (ex. COPD, bacterial infection, acute sinusitis, etc.). [] Patient is currently on antibiotics or has been in the last 30 days. [] Patient?s visit resulted in an inpatient admission. [] The patient has acute bronchitis/ bronchiolitis and antibiotics were prescribed or dispensed today. [DOES NOT SATISFY MIPS PERFORMANCE] Discharge Plan Departure Patient Disposition: Home Clinical Impression: Acute upper respiratory infection Instructions: DI for Viral Upper Respiratory Infection -- Adult Activity Restrictions/Additional Instructions: *You have been diagnosed with upper respiratory infection *What to do: Been diagnosed with 2 different viruses human metapneumovirus and enterovirus. Very common viruses. He will take time to resolve. Stay hydrated rest fever control. *Continue to take medications as directed Albuterol 1-2 puffs every 4 hours if needed for coughing or shortness of breath Tylenol 1000 mg every 6 hours if needed for fever Motrin 600 mg every 6 hours as needed pain or fever *Follow up with your primary care provider in 2-3 days or call [phone] *Return to ER if you should have increasing shortness of breath not tolerating fluids or any new, worsening or concerning symptoms Prescriptions: No Action losartan-hydrochlorothiazide 100-25 mg tablet See Rx Instructions .ROUTE .COMPLEX Qty: 90 3RF Dose Instruction: TAKE 1 TABLET BY MOUTH DAILY Rx Instructions: TAKE 1 TABLET BY MOUTH DAILY [employer] 2-Constantin 0.6 mg/0.1 mL (18 mg/3 mL) pen injector 0.6 mg SUBCUT DAILY Qty: 6 3RF (DME) Rcra Hazardous Waste Misc See Rx Instructions .Route Qty: 20 0RF Rx Instructions: As directed (DME) pen needle, diabetic [Pen Needle] 31 gauge x 1/4 needle See Rx Instructions .Route Qty: 100 0RF Rx Instructions: daily injections peg 3350-electrolytes [Golytely] 236-22.74-6.74 -5.86 gram recon soln 240 ml PO Q10M Qty: 4000 0RF Rx Instructions: Take as directed by Physician bupropion HCl [Wellbutrin XL] 150 mg tablet extended release 24 hr 150 mg PO QAM Qty: 90 1RF amlodipine 5 mg tablet 5 mg PO DAILY Qty: 90 0RF (DME) ResMed AirSense 10 Auto CPAP Qty: 1 Dose Instruction: As directed Patient Comments: Pressure: 6-12 cmH2O DME: [place] Rx Instructions: As directed Referrals: Hunter García MD [Primary Care Provider] - Stand Alone Forms: Patient Portal/API
[2023-01-23 21:45] LABS: Adenovirus Not Detected (Not Detect); B. parapertussis Not Detected (Not Detecte); Bordetella pertussis Not Detected (Not Detecte); Chlamydophila pneumoniae Not Detected (Not Detect); Coronavirus 229E Not Detected (Not Detect); Coronavirus HKU1 Not Detected (Not Detect); Coronavirus NL 63 Not Detected (Not Detect); Coronavirus OC43 Not Detected (Not Detect); Human Metapneumovirus Detected (Not Detect); Human Rhinovirus/Enterovirus Detected (Not Detect); Influenza A Not Detected (Not Detect); Influenza B Not Detected (Not Detect); Mycoplasma pneumoniae Not Detected (Not Detect); Parainfluenza Virus 1 Not Detected (Not Detect); Parainfluenza Virus 2 Not Detected (Not Detect); Parainfluenza Virus 3 Not Detected (Not Detect); Parainfluenza Virus 4 Not Detected (Not Detect); Respiratory Syncytial Virus Not Detected (Not Detect); SARS- CoV-2 Not Detected (Not Detecte)
[2023-01-23] MEDS: SODIUM CHLORIDE 0.9% 1,000 ML 1000 ML IV (22:04)
[2023-01-23] MEDS: ALBUTEROL HFA PREPACK 1 BOX MISC (22:42)
== END 2023-01-23 23:10 | disposition home or self-care (01) ==
PROVIDERS: Emergency Provider Emergency Medicine; PCP Family Medicine
DX: J06.9 Acute upper respiratory infection, unspecified (principal); R79.89 Other specified abnormal findings of blood chemistry; B97.81 Human metapneumovirus as the cause of diseases classified elsewhere; Z20.822 Contact with and (suspected) exposure to COVID-19
CPT/HCPCS: 36415; 71045; 80053; 83605; 83880; 84484; 85025; 85610; 87040; 87633; 93005; 93010; 96360; 99284

== ENCOUNTER 2023-02-24 10:29 | Day surgery (SDC) | payer OTHER, MEDICAID, SELFPAY ==
[2021-09-23 11:23] VITALS: BMI 42.5
--- NOTE | 2023-02-24 | PATH_ITS ---
[facility] Accession Number: [id number] No. of containers..02 Tissue . 01 Material submitted: . PART A: colon - TRANSVERSE POLYP PART B: rectum - RECTAL POLYPS . 01 Diagnosis: A. Transverse Colon Polyp: Colonic mucosa with no diagnostic abnormality, consistent with polypoid redundancy. Negative for serrated lesion, dysplasia or malignancy. Additional step sections examined. . B. Rectal Polyps: Hyperplastic polyps. Negative for dysplasia or malignancy. Additional step sections examined. V 03/04/2023 1432 Local . 01 Electronically signed: . Myke Veloz MD, PhD, Pathologist NPI- [id number] . 01 Gross description: . Part A: TRANSVERSE POLYP: Received in formalin is 1 fragment(s) of casanova, soft tissue measuring 0.2 x 0.1 x 0.1 cm submitted entirely in 1 cassette(s) Part B: RECTAL POLYPS: Received in formalin are 2 fragment(s) of casanova, soft tissue measuring 0.2 x 0.2 x 0.2 cm to 0.3 x 0.3 x 0.2 cm submitted entirely in 1 cassette(s) /YAMILE 03/01/20231999 Local . 01 Pathologist provided ICD-10: K63.5, K62.1 . 01 CPT . 352587, 020920 Specimen Comment: A courtesy copy of this report has been sent to [phone] Performed at: 01 [facility] [address] [place] [address] [id number] MD Uday Everett MD Phone: [phone]
[2023-02-24 10:46] VITALS: BMI 97.6
[2023-02-24 10:57] VITALS: BP 179/109; PULSE 93; RESP 20; TEMP 36.3; O2SAT 91
[2023-02-24] MEDS: LACTATED RINGERS 1,000 ML 42 ML IV (11:05)
--- NOTE | 2023-02-24 11:06 | P.HP_ITS ---
History of Present Illness History of Present Illness Date Patient Seen: 02/24/23 Time Patient Seen: 11:06 Chief complaint: Colonoscopy Narrative: Timmy is a 47-year-old gentleman who is here for a colonoscopy. He has had a colonoscopy before but it was over 10 years ago. No known family history of colon cancer. No recent hematochezia or melena. [facility] Medical History Abnormal laboratory test result Anxiety (~2006) Breast pain, right Chronic back pain (~2009) Depression (~2006) Depression Eczema (~2009) Essential (primary) hypertension (~2012) Excessive daytime sleepiness Foot pain (~2016) Gout (~2015) Hemorrhoids (~2013) Insomnia, unspecified Morbid obesity with body mass index (BMI) of 40.0 to 49.9 Obstructive sleep apnea of adult Prediabetes Scoliosis Weight gain Surgical History Hx of removal of cyst Family History Father Heart disease Diabetes mellitus Hypertension Hyperlipidemia Mother Fibromyalgia Brother Diabetes mellitus Grandmother Heart attack Social History marital status: details: has [place] GF [place] household members: friend(s) lives independently: Yes caregiver/support person: No housing: house pets and animals: Yes education level: college occupational status: employed seatbelt use: always water heater temp set < 120 deg: Yes working smoke detector in home: Yes fire extinguisher in home: Yes carbon monox detector in home: Yes firearms in home: No Smoking Status: Never smoker second hand exposure: No alcohol intake: current substance use type: does not use during the past year weight has: increased > 10 lbs well-balanced diet: daily or most days daily servings fruits/ve-1 caffeine: Yes eating out: rarely or never Type(s) of exercise: walking, yoga and additional frequency: 3-4 times per week duration: 45-60 minutes/day Meds Home Medications and Allergies Home Medications Medication Instructions Recorded Confirmed Type ResMed AirSense 10 Auto CPAP #1 ea 10/11/18 12/20/22 History losartan 100 See Rx Instructions .Route 08/16/22 02/24/23 Rx mg-hydrochlorothiazide 25 mg tablet .COMPLEX #90 tabs bupropion HCl 150 mg 24 hr tablet, 150 mg PO QAM #90 tabs 11/19/22 02/24/23 Rx extended release (Wellbutrin XL) amlodipine 5 mg tablet 5 mg PO DAILY #90 tabs 12/20/22 02/24/23 Rx liraglutide 0.6 mg/0.1 mL (18 mg/3 0.6 mg (0.1 mL) SUBCUT DAILY #6 mL 12/23/22 02/24/23 Rx mL) subcutaneous pen injector ([employer] 2-Constantin) empty container (Rcra Hazardous #20 ea 12/28/22 Rx Waste) Pen Needle 31 gauge x 1/4 (pen #100 ea 12/31/22 Rx needle, diabetic) Allergies Allergy/AdvReac Type Severity Reaction Status Date / Time allopurinol Allergy Severe kidney Verified 02/24/23 10:44 stones labetalol Allergy feels bad Verified 02/24/23 10:44 Iodinated Contrast Media AdvReac Severe Swollen Verified 02/24/23 10:44 [Iodinated Contrast- Oral Tounge, and IV Dye] Hives iodine [IODINE] AdvReac Severe SWOLLEN Verified 02/24/23 10:44 THROAT, BURNING EYES AND HIVES ALL OVER BODY lisinopril AdvReac Mild Itchy Verified 02/24/23 10:44 throat, itchy eyes Exam Vital Signs (past 8 hours): - 02/24/23 10:57 Temperature 97.3 F L Pulse Rate 93 H Respiratory Rate 20 Blood Pressure 179/109 H Pulse Oximetry 91 Oxygen Delivery Method Room Air Oxygen Delivery Method Room Air Const General: healthy appearing Resp Effort & Inspection: normal respiratory effort Assessment & Plan Assessment and plan (1) Colon cancer screening: Status: Acute Plan We reviewed the risks and benefits of colonoscopy for colon cancer screening and he would like to proceed.
--- NOTE | 2023-02-24 12:47 | PM.OP.COLON ---
Operative Date/Time/Diagnoses Date of procedure: 02/24/23 Time of procedure: 12:47 Pre-op diagnosis: Colon cancer screening Post-op diagnosis: same Procedure & Clinicians Study performed: Colonoscopy Same procedure as scheduled: Yes Surgeon: Sylvester Marlow Procedure Notes Procedure in detail: Surgeon: Sylvester Marlow MD Anesthesia: Venkata Smith CRNA Procedure: The patient was brought to the endoscopy suite, placed in left lateral decubitus position. The patient was connected to monitoring devices. A time-out was performed. Sedation was administered. Once the patient was adequately sedated, a digital rectal exam was performed and was normal. The scope was then inserted and advanced to the cecum where the appendiceal orifice was identified and photographed. The scope was then slowly withdrawn over greater than 6 minutes. The mucosa was thoroughly inspected. There was a 3 mm polyp in the transverse colon removed with cold forceps. Were 2 3 mm polyps in the mid rectum removed with cold forceps The scope was retroflexed in the rectum. Other abnormalities were seen. The scope was straightened and removed. The patient was awakened and brought to recovery. Scope withdrawal time: 17 minutes Sedation time: 24 minutes EBL: 5 mL Findings: Diminutive polyps in the transverse colon and rectum Post-procedure Disposition: PACU
[2023-02-24 12:50] VITALS: BP 139/90; PULSE 82; RESP 16; TEMP 36.9; O2SAT 91
[2023-02-24 12:55] VITALS: BP 134/86; PULSE 87; RESP 13; O2SAT 96
[2023-02-24 12:59] VITALS: BP 137/92; PULSE 76; RESP 12; O2SAT 95
== END 2023-02-24 13:28 | disposition home or self-care (01) ==
PROVIDERS: PCP Family Medicine; Referring Provider Surgery; Visit Provider Surgery
PROC: 0DJD8ZZ Inspection of Lower Intestinal Tract, Via Natural or Artificial Opening Endoscopic (ICD-10-PCS; CPT 45378; principal; 2023-02-24 11:00)
DX: Z12.11 Encounter for screening for malignant neoplasm of colon (principal); K62.1 Rectal polyp
CPT/HCPCS: 45380; J2704

== ENCOUNTER → 2023-04-04 16:52 | Outpatient (CLI) | payer OTHER, MEDICAID, SELFPAY ==
[2021-09-23 11:23] VITALS: BMI 42.5
[2023-04-04 17:43] LABS: Alanine Aminotransferase 49 IU/L (<50); Albumin Globulin Ratio 1.2 (1.0-2.8); Alkaline Phosphatase 73 U/L (38-126); Aspartate Aminotransferase 35 IU/L (17-59); BUN Creatinine Ratio 10.9 (6-22); Bilirubin Total 0.5 mg/dL (0.2-1.3); Blood Urea Nitrogen 12 mg/dL (9-20); Calcium 8.7 mg/dL (8.4-10.2); Carbon Dioxide 33 mmol/L (22-32); Chloride 100 mmol/L (98-107); Cholesterol 313 mg/dL (140-199); Estimated Glomerular Filt Rate > 60 mL/min (>60); Globulin 3.3 g/dL (1.7-4.1); Glucose 90 mg/dL (70-100); HDL Cholesterol 34 mg/dL (40-60); HEMOLYSIS < 15 (0-50); LDL Cholesterol Calculated 231 mg/dL (<100); Potassium 3.4 mmol/L (3.4-5.1); Sodium 136 mmol/L (137-145); Total Protein 7.3 g/dL (6.3-8.2); Triglycerides 239 mg/dL (35-150)
[2023-04-06 02:15] LABS: x Labcorp Estim. Avg Glu (eAG) 126 mg/dL (.)
== END ==
PROVIDERS: PCP Family Medicine; Referring Provider Family Medicine; Visit Provider Family Medicine
DX: E78.5 Hyperlipidemia, unspecified (principal); M1A.9XX0 Chronic gout, unspecified, without tophus (tophi); R73.01 Impaired fasting glucose; R74.8 Abnormal levels of other serum enzymes; M10.9 Gout, unspecified; Z79.899 Other long term (current) drug therapy
CPT/HCPCS: 36415; 80053; 80061; 83036; 84550

== ENCOUNTER → 2023-06-22 09:19 | Outpatient (CLI) | payer OTHER, MEDICAID, SELFPAY ==
[2021-09-23 11:23] VITALS: BMI 42.5
--- NOTE | 2023-06-22 09:21 | DI.RAD.S_ITS ---
PROCEDURE: XR ANKLE LT MIN 3V INDICATIONS: pain @ lateral ankle, hx gout TECHNIQUE: 3 views of the ankle were acquired. COMPARISON: [facility], CR, XR ANKLE RT MIN 3V, 02/17/2022, 15:54. FINDINGS: Bones: No acute fractures or dislocations. Chronic appearing fracture deformity of the medial malleolus tip. Ankle mortise is normally aligned. No suspicious bony lesions. Plantar and posterior calcaneal spurring. Soft tissues: No tibiotalar joint effusion. Achilles tendon appears normal. IMPRESSION: No acute osseous abnormality. If pain persists with conservative management, consider repeat x-ray in 10-14 days or cross-sectional imaging. Dictated by: Brad Medina M.D. on 06/22/2023 at 10:47 Approved by: Brad Medina M.D. on 06/22/2023 at 10:48
[2023-06-22 11:18] LABS: Add Manual Diff / Slide Review NO; Basophils Absolute Auto 0 /uL (0-100); Basophils Percent Auto 0.6 % (0-2); Eosinophils Absolute Auto 200 /uL (0-450); Eosinophils Percent Auto 2.2 % (2-4); Hematocrit 42.6 % (41-53); Hemoglobin 14.2 g/dL (13.5-17.5); Lymphocytes Absolute Auto 1300 /uL (1100-4500); Mean Corpuscular HGB Conc 33.3 % (30-36); Mean Corpuscular Volume 87.1 fL (80-100); Monocytes Absolute Auto 500 /uL (0-900); Monocytes Percent Auto 6.8 % (3-14); Neutrophils Absolute Auto 4900 /uL (1500-7000); Neutrophils Percent Auto 71.4 % (50-75); Platelet Count 317 X10^3/uL (150-400); Red Blood Cell Count 4.89 X10^6/uL (4.5-5.9); Red Cell Distribution Width 14.4 % (11.6-14.8); White Blood Cell Count 6.9 X10^3/uL (4.5-11.0)
[2023-06-22 12:06] LABS: Uric Acid 9.2 mg/dL (3.5-8.5)
== END ==
PROVIDERS: PCP Family Medicine; Referring Provider Physician Assistant; Visit Provider Physician Assistant
DX: M25.572 Pain in left ankle and joints of left foot (principal); M10.9 Gout, unspecified
CPT/HCPCS: 36415; 73610; 84550; 85025